=== PATIENT | male | born 1955 | race Asian ===

== ENCOUNTER 2021-04-06 10:22 | Outpatient (REF) | payer MEDICARE, OTHER, SELFPAY ==
[2021-04-06 10:27] VITALS: BP 144/87; PULSE 53; RESP 18; TEMP 36.3; O2SAT 96; BMI 25.5
--- NOTE | 2021-04-06 11:00 | P.BOP_ITS ---
Brief Operative Note Date of Service: 04/06/21 Pre-op diagnosis: Embolic cerebral infarction Post-op diagnosis: same Procedure: Implantable loop recorder placement Implants: After obtaining full informed consent patient was brought to the minor surgery suite in a fasting condition. Patient has then laid on the operating table in supine position. The precordial area was then prepped and draped in sterile fashion. Patient was then injected with 2% lidocaine with epinephrine intradermally in the subcutaneous space in the 4th intercostal space. [place] implantable loop recorder, serial number [id number] was then implanted using Seldinger technique after blunt dissection. Measured R-waves at 0.52 mV. The wound was then closed with Dermabond as well as Steri-Strips. Pressure dres sing was then applied. Surgeon: Jorge Gabriel MD Anesthesia: local Was an Grain [employer] Plants Supervisor used for this Procedure?: No Estimated blood loss (mL): 2 Pathology: none sent Condition: stable Disposition: same day
== END 2021-04-06 10:23 | disposition home or self-care (01) ==
LOC: HO.MS 10:22
PROVIDERS: Visit Provider Internal Medicine Cardiovascular Disease
PROC: (CPT 33285; principal; 2021-04-06 10:30)
DX: I63.40 Cerebral infarction due to embolism of unspecified cerebral artery (principal); I10 Essential (primary) hypertension
CPT/HCPCS: 33285; 93005; 99202; C1764

== ENCOUNTER → 2021-04-11 07:46 | Outpatient (BNVA) | payer MEDICARE, OTHER, SELFPAY | PROVIDERS: PCP Internal Medicine; Visit Provider Nurse Practitioner Family | DX: Z51.89 Encounter for other specified aftercare (principal); I63.40 Cerebral infarction due to embolism of unspecified cerebral artery | CPT/HCPCS: 99212 ==

== ENCOUNTER → 2021-04-18 14:56 | Outpatient (BNVA) | payer MEDICARE, OTHER, SELFPAY | PROVIDERS: PCP Internal Medicine; Referring Provider Internal Medicine; Visit Provider Nurse Practitioner Family | DX: Z45.09 Encounter for adjustment and management of other cardiac device (principal); I63.40 Cerebral infarction due to embolism of unspecified cerebral artery; Z95.818 Presence of other cardiac implants and grafts; Z51.89 Encounter for other specified aftercare | CPT/HCPCS: 99212 ==

== ENCOUNTER → 2021-04-25 13:58 | Outpatient (BNVA) | payer MEDICARE, OTHER, SELFPAY | PROVIDERS: PCP Internal Medicine; Referring Provider Internal Medicine; Visit Provider Nurse Practitioner Family | DX: I63.40 Cerebral infarction due to embolism of unspecified cerebral artery (principal); Z51.89 Encounter for other specified aftercare; Z95.818 Presence of other cardiac implants and grafts | CPT/HCPCS: 99212 ==

== ENCOUNTER → 2021-08-20 10:05 | Outpatient (BNVA) | payer MEDICARE, OTHER, SELFPAY | PROVIDERS: PCP Internal Medicine; Referring Provider Internal Medicine; Visit Provider Internal Medicine Cardiovascular Disease | DX: R07.9 Chest pain, unspecified (principal); I10 Essential (primary) hypertension; Z86.73 Personal history of transient ischemic attack (TIA), and cerebral infarction without residual deficits | CPT/HCPCS: 99212 ==

== ENCOUNTER → 2021-08-27 08:39 | Outpatient (REF) | payer MEDICARE, OTHER, SELFPAY ==
--- NOTE | ~2021-08-27 | NM_ITS ---
Exercise Myocardial perfusion study Indication: Chest pain with prior CAD to evaluate for myocardial ischemia Technique: The patient was brought in for an exercise perfusion study on 08/27/2021. Patient performed exercise as per Ayan protocol and was injected 30 mCi of sestamibi was given intravenously one target HR was achieved. Images were obtained using the SPECT gamma camera interlaced with the gating device. Images were obtained in supine position. Resting perfusion study was performed on 08/28/2021. Patient was administered 30 mCi of sestamibi intravenously at rest. Images were then obtained in supine position. Images obtained with and without CT attenuation. Total DLP 83 mGy-cm. Images were processed with the software and compared side to side in short axis, horizontal long axis and vertical long axis views. Findings: The stress perfusion study showed non attenuated images show mildly reduced uptake in the inferior wall of the LV myocardium. Remainder of the LV myocardium is normally perfused. Attenuation corrected images were also normal uptake radiotracer in all segments of minimally reduced in the apex. The gated study shows normal LV systolic function with calculated LVEF of 52%. LV cavity is normal in in size. The gated study shows normal systolic wall thickening and contraction of all segments. There is no transient ischemic dilation. Resting study shows no significant change in perfusion pattern on attenuation corrected images. Gating at rest reveals normal systolic wall motion with ejection fraction at 67%. The findings are consistent with normal myocardial perfusion. NM/NM cardiolite stress test Impression: 1. Normal myocardial perfusion 2. Gated LVEF is 62% 3. Transient ischemic dilatation not present Stress EKG is negative for ischemia
--- NOTE | 2021-08-27 08:44 | CA_ITS ---
Acquisition Time: 2021-08-27 09:05:17 Total Exercise Time: 00:09:00 Test Indications: Chest Pain Medications: AMLODIPINE ATORVASTATIN CLOPIDOGREL Protocol: BAYLEE Max HR: 133 BPM 87% of Pred: 152 BPM Max BP: 146/070 mmHG Max Work Load: 10.4 METS Exercise stress test with exercise 9 min of Baylee protocol, with mild sob, no chest discomfort, without arrythmia, with normotensive response to exercise, without EKGchanges meeting criteria for ischemia. Nuclear images pending. Test reviewed with Dr John. Referred By: Jorge Gabriel Overread By: JAY COOK
== END ==
LOC: HO.CARD 08:39
PROVIDERS: PCP Internal Medicine; Visit Provider Internal Medicine Cardiovascular Disease
DX: R07.9 Chest pain, unspecified (principal)
CPT/HCPCS: 78452; 93017; A9500

== ENCOUNTER → 2022-03-25 10:22 | Outpatient (BNVA) | payer MEDICARE, OTHER, SELFPAY | PROVIDERS: PCP Internal Medicine; Referring Provider Internal Medicine; Visit Provider Internal Medicine Cardiovascular Disease | DX: Z45.09 Encounter for adjustment and management of other cardiac device (principal); I63.40 Cerebral infarction due to embolism of unspecified cerebral artery; I10 Essential (primary) hypertension | CPT/HCPCS: 93005; 99212 ==

== ENCOUNTER → 2022-10-01 10:14 | Outpatient (BNVA) | payer MEDICARE, OTHER, SELFPAY | PROVIDERS: PCP Internal Medicine; Referring Provider Internal Medicine; Visit Provider Internal Medicine Cardiovascular Disease | DX: Z45.09 Encounter for adjustment and management of other cardiac device (principal); I10 Essential (primary) hypertension; R07.89 Other chest pain | CPT/HCPCS: 93005; 99212 ==

== ENCOUNTER → 2022-10-03 10:00 | Outpatient (REF) | payer MEDICARE, OTHER, SELFPAY ==
--- NOTE | ~2022-10-03 | NM_ITS ---
EXERCISE MYOCARDIAL PERFUSION STUDY INDICATION: Chest pain, PVCs TECHNIQUE: The patient was brought in for an exercise perfusion study on 10/03/2022. Patient performed exercise as per Ayan protocol and was injected 30 mCi of sestamibi once target heart rate was achieved. Images were obtained using the SPECT gamma camera interlaced with the gating device. Images were obtained in supine position. Resting perfusion study was performed on 10/07/2022. Patient was administered 30 mCi of sestamibi intravenously at rest. Images were then obtained in supine position. Images were processed with the software and compared side to side in short axis, horizontal long axis and vertical long axis views. Total DLP 81mGy-cm. FINDINGS: Raw images were reviewed. The stress perfusion study showed diminished tracer uptake in the basal part of inferior wall. There is improvement with CT at admission correction suggestive of diaphragmatic attenuation artifact. The gated study shows normal LV systolic function with calculated LVEF of 62%. LV cavity is normal in size. The gated study shows normal wall thickening and contraction of segments. Resting study shows diminished tracer uptake in the basal part of inferior wall and adjacent inferolateral wall. There is improvement with CT attenuation correction suggestive of diaphragmatic attenuation artifact. Gating at rest reveals normal wall motion with ejection fraction at 44%-seems underestimate. The findings are consistent with no reversible defects. Fixed basal inferior defect with some extension into inferolateral wall suggestive of diaphragmatic attenuation artifact. NM/NM cardiolite stress test IMPRESSION: 1. Myocardial perfusion imaging study shows no clear evidence of any ischemia or infarction. Likely normal perfusion. 2. Gated LVEF is 62% during stress and 44% during rest. Correlate with echocardiogram. 3. Transient ischemic dilatation not present. EKG component of the test reported separately.
--- NOTE | 2022-10-03 10:04 | CA_ITS ---
Acquisition Time: 2022-10-03 10:49:44 Total Exercise Time: 00:09:26 Test Indications: CP, PVC'S Medications: SEE H Protocol: BAYLEE Max HR: 144 BPM 95% of Pred: 151 BPM Max BP: 182/068 mmHG Max Work Load: 10.7 METS Exercise stress test using Baylee protocol, total of 9 min 26 sec. METS 10.70, TAPHR 95%. Patient tolerated well. Pt denies any SOB, short lasting CP. Frequent PVC's after exercise. No ischemia noted. Normotensive response to exercise. Nuclear images to follow. Test reviewed with Dr. Gabriel. Referred By: Jorge Gabriel Overread By: Opal Moreno NP
== END ==
LOC: HO.CARD 10:00
PROVIDERS: Visit Provider Internal Medicine Cardiovascular Disease
DX: R07.9 Chest pain, unspecified (principal)
CPT/HCPCS: 78452; 93017; A9500

== ENCOUNTER 2022-10-09 11:17 | Outpatient (REF) | payer MEDICARE, OTHER, SELFPAY ==
[2022-10-09 11:52] VITALS: BP 129/72; PULSE 35; RESP 16; TEMP 36.5; O2SAT 96; BMI 25.9
--- NOTE | 2022-10-09 12:04 | ECG_ITS ---
Test Reason : Bradycardia Blood Pressure : / mmHG Vent. Rate : 057 BPM Atrial Rate : 057 BPM P-R Int : 200 ms QRS Dur : 084 ms QT Int : 448 ms P-R-T Axes : 070 026 051 degrees QTc Int : 436 ms Sinus bradycardia with occasional Premature ventricular complexes Otherwise normal ECG No previous ECGs available Referred By: Jorge Gabriel Electronically Signed By:JORGE GABRIEL MD
[2022-10-09 13:03] VITALS: BP 166/85; PULSE 34; RESP 16; O2SAT 98
--- NOTE | 2022-10-09 15:10 | P.BOP_ITS ---
Brief Operative Note Date of Service: 10/09/22 Pre-op diagnosis: Implantable loop recorder in place Post-op diagnosis: same Procedure: Removal of implantable loop recorder Implants: After obtaining full informed consent patient brought to the minor surgery room. Patient was then laid in supine position on the operating table. The precordial area was then prepped and draped in a sterile fashion. Patient was then given 2% lidocaine with epinephrine intradermally and subcutaneously. Small incision was then made. The implantable loop recorder was then removed after retracting it with a Chloé. The wound was then closed with Steri-Strips and pressure bandage applied in a sterile fashion Surgeon: Jorge Gabriel MD Anesthesia: local Was an Commercial Trailer Truck Driver used for this Procedure?: No Estimated blood loss (mL): 1 Pathology: none sent Condition: stable Disposition: same day
== END 2022-10-09 11:18 | disposition home or self-care (01) ==
LOC: HO.MS 11:17
PROVIDERS: Visit Provider Internal Medicine Cardiovascular Disease
PROC: (CPT 33286; principal; 2022-10-09 12:20)
DX: Z95.818 Presence of other cardiac implants and grafts (principal); Z45.09 Encounter for adjustment and management of other cardiac device
CPT/HCPCS: 33286; 93005

== ENCOUNTER → 2022-10-17 09:51 | Outpatient (BNVA) | payer MEDICARE, OTHER, SELFPAY | PROVIDERS: Visit Provider Internal Medicine Cardiovascular Disease ==

== ENCOUNTER 2024-11-19 11:27 | Outpatient (AMB) | payer MEDICARE, OTHER, SELFPAY ==
[2024-11-19 11:39] VITALS: BP 114/70; PULSE 76; BMI 26.5
--- NOTE | 2024-11-19 11:39 | MHC.OFFVIS ---
Vital Signs 11/19/24 11:39 Height 5 ft 8 in Weight 174 lb 2.643 oz BMI 26.5 BP 114/70 Blood Pressure Location Lt brachial Position Sitting Pulse 76 Intake Visit Reasons: f/u per pcp Intake Note: Follow-up per pcp with ekg c/o chest pain across the chest and in the jaw from time to time Remote Sensing Surveyor Required: No Allergies No Known Allergies Allergy (Verified 04/11/21 08:05) Medication List - Last Reconciled 11/19/24 by Jorge Gabriel MD amlodipine 2.5 mg PO DAILY atorvastatin 40 mg PO DAILY bimatoprost 0.01% (Lumigan) 1 drp ophthalmic (eye) QPM brimonidine-timolol 0.2-0.5 % (Combigan) 1 drp ophthalmic (eye) BID clopidogrel 75 mg PO DAILY HPI Comments Details: Selvin was referred here for intermittent episodes of right-sided and left-sided chest pain as well as right jaw discomfort. There was no clear association although Mibi related to high blood pressure. He is not sure. He has never measured blood pressure during this episodes. Symptoms last for about 10 minutes and then subside. He says since there was a change in 1 of the generic medicine replacement with another formulation his blood pressure is not been well controlled. He denies any shortness of breath, orthopnea, PND. He said intermittently gets symptoms of fluttering in his chest palpitations. Although no prolonged irregular heartbeat or palpitation. FOR[facility]LY [facility] Medical History Status post placement of implantable loop recorder HTN (hypertension) Family History Mother Congestive heart failure (CHF) Father Stroke Social History Alcohol intake: current Patient Tobacco Use Status: Never used Tobacco Review of Systems Const Denies chills, Denies fatigue, Denies fever(s), Denies frequent falls, Denies weakness, Denies weight gain and Denies weight loss ENT Denies dizziness Card Denies chest pain, Denies leg edema, Denies lightheadedness, Denies palpitations, Denies dyspnea, Denies dyspnea on exertion, Denies orthopnea and Denies other (loss of consciousness) Resp Denies cough, Denies dyspnea and Denies dyspnea on exertion GI Denies hematochezia and Denies change in stool character Musc Denies abnormal gait, Denies muscle weakness, Denies numbness, Denies radiating pain into limb and Denies tingling Neuro Denies abnormal gait, Denies dizziness, Denies frequent falls, Denies numbness, Denies tingling and Denies weakness Endo Denies fatigue and Denies palpitations Physical Exam Vital Signs: Last Vital Signs Pulse 76 11/19/24 11:39 BP 114/70 11/19/24 11:39 BMI result Body Mass Index 26.5 Const General: cooperative, healthy appearing, comfortable, no acute distress and well groomed Nutritional Appearance: average body habitus Orientation/consciousness: patient oriented x3 Limitations: no limitations Neck Neck: Yes trachea midline, Yes supple and Yes no JVD Chest Other: ILR site with bandaid and steristrips intact Resp Effort & Inspection: normal respiratory effort Auscultation: clear to auscultation bilaterally Cardio Rate: regular rate Rhythm: abnormal rhythm with ectopic beats Heart sounds: S1 normal heart sound present, S2 normal heart sound present, no click, no gallops and no murmurs GI Auscultation: normal bowel sounds Neuro General: patient oriented x3 and no focal motor deficits Extrem General: Yes no clubbing, cyanosis or edema Office Procedures EKG Details: EKG shows normal sinus rhythm with occasional PVCs 57388-[id number], Complete Assessment & Plan Assessment & Plan (1) Atypical chest pain: Code(s): R07.89 - Other chest pain Category: Medical Plan: Patient with chest pain which is atypical in nature. Probably related to uncontrolled blood pressure. Although other causes such as myocardial ischemia needs to be ruled out. Will suggest a exercise treadmill stress test with echocardiogram to assess for myocardial ischemia. Also suggest an echocardiogram to evaluate for LV systolic and diastolic function to evaluate for hypertensive heart disease. These tests will be scheduled in near future. Further treatment based on the findings. (2) HTN (hypertension): Code(s): I10 - Essential (primary) hypertension Category: Medical Plan: Blood pressure which remains uncontrolled with possibly change in the medication formulation. At this point time would suggest to increase amlodipine to 2.5 mg b.i.d.. He does have 1 episode of orthostatic lightheadedness. Advised to pursue close follow-up blood pressure at home. Advised to maintain adequate hydration. Low-salt diet was discussed. Stress mitigation strategies were discussed. He is currently on high-intensity statin therapy given his prior CVA. Target goal LDL less than 70 mg/dL. Continue lifelong antiplatelet therapy. (3) PVCs (premature ventricular contractions): Code(s): I49.3 - Ventricular premature depolarization Category: Medical Plan: PVCs present today asymptomatic. At this point time will obtain a Holter monitor to assess for frequency that may direct treatment. Otherwise no treatment indicated. Stress mitigation strategies were discussed. Avoidance of stimulants was discussed. Will follow up in the clinic in 2 months time, sooner p.r.n.. Thank you for allowing me to partake in his care Medications: New amlodipine 2.5 mg PO BID 60 tabs 2RF Coding Level of Care Code Est Pt Level 4 (79154) Complex EM visit Add On G2211 Diagnoses Atypical chest pain R07.89 HTN (hypertension) I10 PVCs (premature ventricular contractions) I49.3 CPT Codes EKG - CPT: 45569-[id number], Complete ([id number])
--- OUTSIDE RECORDS SUMMARY | 2024-11-19 12:29 | XMS_ITS ---
Author Organization [facility] Address [address] [place] [address] Care Team Providers Care Handbag Stitcher Name Role Phone MARIA DOLORESMILIND Lewis Unavailable [phone] REASON FOR VISIT RPM - BP Nov 02 Encounters Encounter Location Date Provider Diagnosis [facility] [address] [facility] [place] [address] 11/05/2024 MILIND WHITTEN PLAN OF TREATMENT Next Appt Details Provider Name:MILIND WHITTEN, 08:45:00 AM, [address], [place], [address], Provider Name:MILIND WHITTEN, 11:00:00 AM, [address], [place], [address], Progress Notes * LICHA ACKERMAN ADOB: (69 yo M)Acc No.[id number]:11/05/2024 Patient:??LICHA ACKERMAN :1955?Age:69 Y?Sex:Jie hoover Address:[address] [place] [address] * true * Date:??
--- OUTSIDE RECORDS SUMMARY | 2024-11-19 12:29 | XMS_ITS | Clinical Summary ---
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 See instructions provided by the office 2 tablet 4 Active polyethylene glycol (Golytely) 236-22.74-6.74 -5.86 gram solution Take 4L by mouth once for one dose. May substitue any PEG. Starting at 6PM the night before your procedure drink 1 8oz glasses at your own pace until you complete half of the gallon. Finish 2nd half of the gallon 5 hours before your procedure. 4000 mL 4 Active clopidogreL (PLAVIX) 75 mg tablet Take 1 tablet (75 mg total) by mouth 1 (one) time each day. for 90 days Active atorvastatin (LIPITOR) 40 mg tablet Take 1 tablet (40 mg total) by mouth 1 (one) time each day. for 90 days Active amLODIPine (NORVASC) 5 mg tablet Take 1 tablet (5 mg total) by mouth 1 (one) time each day. for 90 days Active Lumigan 0.01 % ophthalmic drops Administer 1 drop into both eyes at bedtime. Active brimonidine (ALPHAGAN) 0.2 % ophthalmic solution Administer 1 drop into both eyes 2 (two) times a day. 4 Active fluticasone propionate (FLONASE) 50 mcg/actuation nasal spray Administer 1 spray into each nostril 1 (one) time each day. Active loratadine (CLARITIN) 10 mg tablet Take 1 tablet (10 mg total) by mouth 1 (one) time each day. Active Encounters Date Type Department Care Team Description 11/01/2024 10:06 AM EDT - 11/01/2024 11:59 PM EDT Hospital Encounter [facility] Ultrasound [address] [place] [id number] Essential (primary) hypertension Discharge Disposition: Home or Self Care 08/30/2024 Telephone Gastroenterology - [address] [id number] Hanny Parra [place] Results 08/24/2024 1:53 PM EST Anesthesia Event [facility] Endoscopy [address] [place] [phone] Adolfo De La Garza MD 08/24/2024 12:05 PM EST - 08/24/2024 11:59 PM EST Hospital Encounter [facility] Endoscopy [address] [place] [phone] Harjeet Cruz MD Johnson, Lorraine, CRNA Korobkov, Vitaliy, DO Hx of colonic polyps Discharge Disposition: Home or Self Care from Last 3 Months Surgical History Surgery Date Site/Laterality Comments HERNIA REPAIR PROCEDURE: REPAIR INGUINAL HERNIA; COMMENT: bilateral COLONOSCOPY 2013 PROCEDURE: AK COLONOSCOPY STOMA DX INCLUDING COLLJ SPEC SPX; COMMENT: Dulce. Normal COLONOSCOPY 2015 PROCEDURE: AK COLONOSCOPY STOMA DX INCLUDING COLLJ SPEC SPX; COMMENT: Christ. Diverticulosis APPENDECTOMY PROCEDURE: AK APPENDECTOMY Medical History Medical History Date Comments Serrated adenoma of colon 04/28/2014 DX:Ser rated adenoma of colon Hyperlipidemia Hypertension Stroke (cerebrum) (CMS/HCC V24, CMS/HCC V28) Family History Medical History Relation Name Comments Coronary artery disease Brother 1 pancreatic cancer Relation Name Status Comments Brother 1 heart disease Brother 2 pancreatic canc er Social History Tobacco Use Types Packs/Day Years Used Date Smoking Tobacco: Former Cigarettes Q uit: 08/11/1981 Smokeless Tobacco: Never Alcohol Use Standard Drinks/Week Comments Not Asked 0 (1 standard drink = 0.6 oz pur e alcohol) Interpersonal Safety Answer Date Record ed Physical Abuse 08/24/2024 Verbal Abuse 08/24/2024 Sex and Gender Information Value Date Recorded Sex Assigned at Male 08/26/2024 7:43 AM EST Legal Sex Male 9:08 PM EST Gender Identity Male 08/26/2024 7:43 AM EST Sexual Orientation Choose not to disclose 2024 7:43 AM EST Obstetrics History Last Filed Vital Signs Vital Sign Reading Time Taken Comments Blood Pressure 101/63 08/24/2024 2:55 PM EST Pulse 58 08/24/2024 2:55 PM EST Temperature 36.4 ??C (97.6 ??F) 08/24/2024 1:13 PM ES T Respiratory Rate 16 08/24/2024 2:55 PM EST Oxygen Saturation 97% 08/24/2024 2:55 PM EST Inhaled Oxygen Concentration - - Weight 77.6 kg (171 lb) 08/24/2024 1:13 PM EST Height 172.7 cm (5' 8 ) 08/24/2024 1:13 PM EST Body Mass Index 26 08/24/2024 1:13 PM EST Plan of Treatment Health Maintenance Due Date Last Done Comments DTaP,Tdap,and Td Vaccines (1 - Tdap) 1972 Pneumococcal Vaccine: 50+ Years (1 of 1 - PCV) 2003 Zoster Vaccines (2 of 2) 10/12/2019 08/17/2019 Abdominal Aortic Aneurysm (AAA) Screen 07/20/2022 Cholesterol Screening (Lipid Panel) 07/20/2022 Depression Screening 07/20/2022 Hepatitis C Screening 07/20/2022 Social Influencers of Health Screening 07/20/2022 Medicare Annual Wellness Visit 05/27/2023 05/27/2022 COVID-19 Vaccine ( season) 2024 11/03/2020, 10/06/2020 Hypertension/CHF/CAD Annual BMP Blood Test 10/20/2024 Influenza Vaccine (Season Ended) 2025 05/29/2023, 05/27/2022, 05/22/2021, Additional history exists Falls Risk Assessment 08/24/2025 08/24/2024 RSV Immunization Adult Patients (1 - 1-dose 75+ series) 2028 Colorectal Cancer Screening: Colonoscopy 08/24/2029 08/24/2024 HIB Vaccines Aged Out No longer eligi ble based on patient's age to complete this topic HPV Vaccines Aged Out No longer eligi ble based on patient's age to complete this topic Hepatitis A Vaccines Aged Out No long er eligible based on patient's age to complete this topic Hepatitis B Vaccines Aged Out No long er eligible based on patient's age to complete this topic IPV Vaccines Aged Out No longer eligi ble based on patient's age to complete this topic MMR Vaccines Aged Out No longer eligi ble based on patient's age to complete this topic Meningococcal ACWY Vaccine Aged Out N o longer eligible based on patient's age to complete this topic Meningococcal B Vaccine Aged Out No l onger eligible based on patient's age to complete this topic RSV Immunization Patients Under 20 months Aged Out No longer eligible based on patient's age to complete this topic Varicella Vaccines Aged Out No longer eligible based on patient's age to complete this topic Procedures Procedure Name Priority Date/Time Associated Diagnosis Comments US DUPLEX ABDOMEN/PELVIS/RETRO LIMITED Routine 11/01/2024 10:33 AM EDT Essential (primary) hypertension COLONOSCOPY Routine 08/24/2024 2:22 PM EST Hx of colonic polyps TISSUE EXAM Routine 08/24/2024 2:11 PM EST Hx of colonic polyps from Last 3 Months Results * US Duplex Abdomen/Pelvis/Retro Limited (11/01/2024 10:33 AM EDT) Anatomical Region Laterality Modality Body Ultrasound 11/10/2024 4:09 PM EDT Narrative 11/10/2024 4:13 PM EDT HISTORY: 69 year-old female with hypertension. ??Evaluate for renovascular cause of hypertension. PROCEDURE: Real-time sonography of the kidneys, aorta, and interlobar and main renal arteries and main renal veins was performed using grayscale, color flow and Doppler interrogation according to a renal artery Doppler protocol. COMPARISON: None. Right kidney measures 11.5 cm in length. Left kidney measures 10.2 cm. There is normal cortical thickness and echogenicity. No evidence of focal mass noted. ??Presumed peripelvic cysts left kidney Doppler evaluation demonstrates normal bilateral acceleration times and resistive indices. Renal artery velocities are within normal limits bilaterally. ??The proximal renal arteries were not visualized.. The abdominal aorta was normal in caliber with no evidence of aneurysm. ??No significant focal plaque was seen. ?? CONCLUSION: The proximal renal arteries were nonvisualized. ??Negative renal Doppler. -------- FINAL REPORT -------- Dictated By: Aakash Wagner Dictated Date: 11/10/2024 16:09 ET Assigned Physician: Aakash Wagner Reviewed and Electronically Signed By: Aakash Wagner Signed Date: 11/10/2024 16:13 ET Workstation ID: [id number] Transcribed By: Self Edit Transcribed Date: 11/10/2024 16:09 ET Procedure Note Aakash Wagner MD - 11/10/2024 HISTORY: 69 year-old female with hypertension. Evaluate for renovascularcause of hypertension. PROCEDURE: Real-time sonography of the kidneys, aorta, and interlobar and main renalarteries and main renal veins was performed using grayscale, color flowand Doppler interrogation according to a renal artery Doppler protocol. COMPARISON: None. Right kidney measures 11.5 cm in length. Left kidney measures 10.2 cm.There is normal cortical thickness and echogenicity. No evidence of focalmass noted. Presumed peripelvic cysts left kidney Doppler evaluation demonstrates normal bilateral acceleration times andresistive indices. Renal artery velocities are within normal limitsbilaterally. The proximal renal arteries were not visualized.. The abdominal aorta was normal in caliber with no evidence of aneurysm.No significant focal plaque was seen. CONCLUSION: The proximal renal arteries were nonvisualized. Negative renal Doppler. -------- FINAL REPORT -------- Dictated By: Aakash Wagner Dictated Date: 11/10/2024 16:09 ET Assigned Physician: Aakash Wagner Reviewed and Electronically Signed By: Aakash Wagner Signed Date: 11/10/2024 16:13 ET Workstation ID: [id number] Transcribed By: Self Edit Transcribed Date: 11/10/2024 16:09 ET us Madalyn TORRES IMKeon US PROCEDURES Final Result * COLONOSCOPY Anesthesia - MAC; [facility] ENDOSCOPY (08/24/2024 2:22 PM EST) Anatomical Region Laterality Modality Other 08/24/2024 1:59 PM EST Impressions 08/24/2024 2:24 PM EST - One 6 mm polyp at the splenic flexure, removed with ? a cold snare. Resected and retrieved. ? - The examination was otherwise normal on direct and ? retroflexion views. Recommendation: ?- Await pathology results. ? - Repeat colonoscopy in 5 years for surveillance. Narrative 08/24/2024 2:24 PM EST [facility] GI Patient Name: Selvin Luevano Procedure Date: 08/24/2024 1:59 PM Date of : 1955 Age: 68 Room: ROOM 14 Gender: Male Note Status: Finalized Attending MD: Harjeet Cruz MD, Procedure Date No Time: 08/24/2024 Procedure: ? Colonoscopy Indications: ? High risk colon cancer surveillance: Personal history ? of colonic polyps Providers: ? Harjeet Cruz MD Referring MD: ?Reagan Cardona MD Medicines: ? Propofol per Anesthesia Complications: ? No immediate complications. Estimated Blood Loss: ? Estimated blood loss: none. Procedure: ? After I obtained informed consent, the scope was ? passed under direct vision. Throughout the procedure, ? the patient's blood pressure, pulse, and oxygen ? saturations were monitored continuously.The Olympus ? Pediatric Colonoscope was introduced through the anus ? and advanced to the cecum, identified by appendiceal ? orifice and ileocecal valve. The colonoscopy was ? performed without difficulty. The patient tolerated ? the procedure well. The quality of the bowel ? preparation was good. Findings: ?The perianal and digital rectal examinations were ? normal. ? A 6 mm polyp was found in the splenic flexure. The ? polyp was sessile. The polyp was removed with a cold ? snare. Resection and retrieval were complete. ? The exam was otherwise without abnormality on direct ? and retroflexion views. Harjeet Cruz MD 08/24/2024 2:24:28 PM This report has been signed electronically.Harjeet Cruz MD Number of Addenda: 0 Note Initiated On: 08/24/2024 1:59 PM Scope In: Scope Out: ? Endoscopy Department at [facility] - [address] [place] [address], ? [place] [address] Procedure Note Harjeet Cruz MD - 08/24/2024 [facility] GI Patient Name: Selvin Luevano Procedure Date: 08/24/2024 1:59 PM Date of : 1955 Age: 68 Room: ROOM 14 Gender: Male Note Status: Finalized Attending MD: Harjeet Cruz MD, Procedure Date No Time: 08/24/2024 Procedure: Colonoscopy Indications: High risk colon cancer surveillance: Personalhistory of colonic polyps Providers: Harjeet Cruz MD Referring MD: Reagan Cardona MD Medicines: Propofol per Anesthesia Complications: No immediate complications. Estimated Blood Loss: Estimated blood loss: none. Procedure: After I obtained informed consent, the scope was passed under direct vision. Throughout theprocedure, the patient's blood pressure, pulse, and oxygen saturations were monitored continuously.The Olympus Pediatric Colonoscope was introduced through theanus and advanced to the cecum, identified byappendiceal orifice and ileocecal valve. The colonoscopy was performed without difficulty. The patient tolerated the procedure well. The quality of the bowel preparation was good. Findings: The perianal and digital rectal examinations were normal. A 6 mm polyp was found in the splenic flexure. The polyp was sessile. The polyp was removed with acold snare. Resection and retrieval were complete. The exam was otherwise without abnormality ondirect and retroflexion views. Harjeet Cruz MD 08/24/2024 2:24:28 PM This report has been signed electronically.Harjeet Cruz MD Number of Addenda: 0 Note Initiated On: 08/24/2024 1:59 PM Scope In: Scope Out: Endoscopy Department at [address] [phone] IMPRESSION: - One 6 mm polyp at the splenic flexure, removed with a cold snare. Resected and retrieved. - The examination was otherwise normal on directand retroflexion views. Recommendation: - Await pathology results. - Repeat colonoscopy in 5 years for surveillance. us Reagan Cardona MD GI~PROCEDURE ORDERABLES Final Re sult * Tissue exam (08/24/2024 2:11 PM EST) Final Diagnosis Splenic flexure, polypX1: Inflammatory polyp. 4:17 PM EST [facility] Comment Biopsy shows eroded inflammatory polyp with mixed acute and chronic inflammation including eosinophils in the lamina propria. GMS stain is performed to evaluate for infectious organisms and is interpreted as negative, supporting the above diagnosis. Control stains appropriately. 4:17 PM EST [facility] Gross Description A. Large intestine, Splenic flexure, polypX1: Labeled splenic flex polyp x 1 . Received in formalin are two soft, reyes-pink to red tissues, approximately measuring 0.2 cm and 0.3 cm in greatest diameters, which are wrapped in paper and submitted in toto in one cassette, two pieces, multiple levels. dvb/DG 4:17 PM EST [facility] Disclaimer NOTE: The immunohistochemical tests and in situ hybridization tests were developed and their performance characteristics were determined by [facility]. They have not been cleared or approved by the U.S. Food and Drug Administration. The FDA has determined that such clearance or approval is not necessary. These tests are used for clinical purposes. They should not be regarded as investigational or for research. This laboratory is certified under the Clinical Laboratory Improvement Amendments of 1988 (CLIA) as qualified to perform high complexity clinical laboratory testing. (controls appropriate) Unless otherwise specified, all tissue is 10% NB formalin fixed and paraffin embedded. 4:17 PM EST [facility] Tissue Structure of left colic flexure / Unknown 08/24/2024 2:11 PM EST 08/24/2024 2:49 PM EST us Harjeet Cruz MD LAB PATHOLOGY ORDERABLES Fi nal Result [facility] [address] [place] [address], [place] [phone] from Last 3 Months Insurance MEDICARE [employer] Advance Directives Documents on File Type Date Recorded Patient Manager Baby Expl anation Health Care Decision (hx) 06/10/2014 AD ARANGO DIRECTIVE Health Care Decision (hx) 06/10/2014 AD ARANGO DIRECTIVE Health Care Decision (hx) 06/10/2014 AD ARANGO DIRECTIVE Health Care Decision (hx) 06/10/2014 AD ARANGO DIRECTIVE Health Care Decision (hx) 06/10/2014 AD ARANGO DIRECTIVE Health Care Decision (hx) 06/10/2014 AD ARANGO DIRECTIVE Care Teams Staple Side Laster Relationship Specialty Start Date End Date Sravani Carvalho MD [address] [place] [address] [place] [address] PCP - General 03/23/24
--- OUTSIDE RECORDS SUMMARY | 2024-11-19 12:29 | XMS_ITS ---
Author Organization [facility] Address [address] [place] [address] Care Team Providers Care Desktop Support Manager Name Role Phone MILIND WHITTEN Unavailable [phone] REASON FOR VISIT 3 week f/u MEDICATIONS Medication SIG (Take, Route, Frequency, Duration) Notes Start Date End Date Status amLODIPine Besylate 5 MG 1 tablet Orally Once a day for 90 days Active tiZANidine HCl 4 MG 1 tablet at bedtime as needed Orally Once a day for 15 days 10/26/2024 Active Clopidogrel Bisulfate 75 MG 1 tablet Orally Once a day for 90 days Active Combigan 0.2-0.5 % 1 drop into affected eye Ophthalmic Twice a day Active Lumigan 0.01 % 1 drop into affected eye in the evening Ophthalmic Once a day Active Vitamin B12 100 MCG as directed Orally Active Atorvastatin Calcium 40 MG 1 tablet Orally Once a day for 90 days Active Flonase Allergy Relief 50 MCG/ACT 1 spray in each nostril Nasally Once a day as needed Active Loratadine 10 MG 1 tablet Orally Once a day as needed Active SOCIAL HISTORY Tobacco Use: Social History Observation Description Date Details (start date - stop date) Former Smoker NA - NA Sex Assigned At : Social History Observation Description Sex Assigned At Unknown Tobacco Use/Smoking Question Answer Notes Are you a former smoker VITAL SIGNS Blood pressure systolic 122 mm Hg 10/27/19 25 Blood pressure diastolic 72 mm Hg 025 Heart Rate 97 /min 10/26/2024 Height 67 in 10/26/2024 Weight 170 lbs 10/26/2024 BMI 26.62 kg/m2 10/26/2024 Oximetry 99 % 10/26/2024 Encounters Encounter Location Date Provider Diagnosis [facility] [address] [place] [address] 10/26/2024 MILIND WHITTEN Uncontrolled hyperte nsion I10 ; Hyperlipidemia, unspecified E78.5 ; Cerebrovascular accident (CVA) due to embolism of other cerebral artery I63.49 ; First degree AV block I44.0 and Seasonal allergies J30.2 ASSESSMENTS Encounter Date Diagnosis Assessment Notes Treatment Notes Treatment Clinical Notes Section Notes 10/26/2024 Uncontrolled hypertension (ICD-10 - I10) Licha is a pleasant 69-year-old male with a complex medical history of CVA x 2, essential hypertension, glaucoma, seasonal allergies who presents to the office today for a follow-up. #Foot pain: Resolved #Neck pain: At this time we will be prescribing a few muscle relaxers to be utilized as needed, patient is to alternate ice and heat on the area. Differential at this time includes trapezium strain, sternocleidomastoid strain, if the pain does not resolve consider chiropractor or physical therapy. #Blood pressure concerns: Renal artery ultrasound ordered today for suspected renal artery stenosis due to the fluctuation of blood pressures. Continue taking amlodipine besilate 5 mg tablets consider switching patient from amlodipine to losartan. #Cardiology referral: Cardiology referral placed for further evaluation of uncontrolled hypertension and AV block. Patient has appointment scheduled for December #Hyperlipidemia: Continue atorvastatin calcium 40 mg tablets, previous cardiology note recommended an LDL level of under 70. At this time patient's recent LDL is 42 from lab values conducted on 09/29/2024. This is reassuring for cholesterol goal. #Personal concerns: At this time patient declines any assistance or references for [facility] services, patient reassured to call the office if he does change his mind. #Glaucoma: Continue Lumigan, Combigan eyedrops. #Seasonal allergies: Continue loratadine 10 mg and Flonase daily. #History of CVA: Continue clopidogrel 75 mg tablets daily. All questions have been answered to patient's satisfaction. Patient verbalized understanding of diagnosis and treatments explained. Advised to call sooner prior to next visit it any questions/concerns arise. Case discussed with Aba VEGAS who reviewed the assessment and plan. Chart, medications, labs, vital signs reviewed. Dictation was accomplished with the use of [employer] voice recognition software, which is prone to medical misidentifications and grammatical errors. This are unintentional and the practitioner does try to identify and correct these, but some could still be present. Please do not hesitate to contact practitioner for clarification. 10/26/2024 Hyperlipidemia, unspecified (ICD-10 - E78.5) Licha is a pleasant 69-year-old male with a complex medical history of CVA x 2, essential hypertension, glaucoma, seasonal allergies who presents to the office today for a follow-up. #Foot pain: Resolved #Neck pain: At this time we will be prescribing a few muscle relaxers to be utilized as needed, patient is to alternate ice and heat on the area. Differential at this time includes trapezium strain, sternocleidomastoid strain, if the pain does not resolve consider chiropractor or physical therapy. #Blood pressure concerns: Renal artery ultrasound ordered today for suspected renal artery stenosis due to the fluctuation of blood pressures. Continue taking amlodipine besilate 5 mg tablets consider switching patient from amlodipine to losartan. #Cardiology referral: Cardiology referral placed for further evaluation of uncontrolled hypertension and AV block. Patient has appointment scheduled for December #Hyperlipidemia: Continue atorvastatin calcium 40 mg tablets, previous cardiology note recommended an LDL level of under 70. At this time patient's recent LDL is 42 from lab values conducted on 09/29/2024. This is reassuring for cholesterol goal. #Personal concerns: At this time patient declines any assistance or references for [facility], patient reassured to call the office if he does change his mind. #Glaucoma: Continue Lumigan, Combigan eyedrops. #Seasonal allergies: Continue loratadine 10 mg and Flonase daily. #History of CVA: Continue clopidogrel 75 mg tablets daily. All questions have been answered to patient's satisfaction. Patient verbalized understanding of diagnosis and treatments explained. Advised to call sooner prior to next visit it any questions/concerns arise. Case discussed with Aba VEGAS who reviewed the assessment and plan. Chart, medications, labs, vital signs reviewed. Dictation was accomplished with the use of [employer] voice recognition software, which is prone to medical misidentifications and grammatical errors. This are unintentional and the practitioner does try to identify and correct these, but some could still be present. Please do not hesitate to contact practitioner for clarification. 10/26/2024 Cerebrovascular accident (CVA) due to embolism of other cerebral artery (ICD-10 - I63.49) Licha is a pleasant 69-year-old male with a complex medical history of CVA x 2, essential hypertension, glaucoma, seasonal allergies who presents to the office today for a follow-up. #Foot pain: Resolved #Neck pain: At this time we will be prescribing a few muscle relaxers to be utilized as needed, patient is to alternate ice and heat on the area. Differential at this time includes trapezium strain, sternocleidomastoid strain, if the pain does not resolve consider chiropractor or physical therapy. #Blood pressure concerns: Renal artery ultrasound ordered today for suspected renal artery stenosis due to the fluctuation of blood pressures. Continue taking amlodipine besilate 5 mg tablets consider switching patient from amlodipine to losartan. #Cardiology referral: Cardiology referral placed for further evaluation of uncontrolled hypertension and AV block. Patient has appointment scheduled for December #Hyperlipidemia: Continue atorvastatin calcium 40 mg tablets, previous cardiology note recommended an LDL level of under 70. At this time patient's recent LDL is 42 from lab values conducted on 09/29/2024. This is reassuring for cholesterol goal. #Personal concerns: At this time patient declines any assistance or references for [facility], patient reassured to call the office if he does change his mind. #Glaucoma: Continue Lumigan, Combigan eyedrops. #Seasonal allergies: Continue loratadine 10 mg and Flonase daily. #History of CVA: Continue clopidogrel 75 mg tablets daily. All questions have been answered to patient's satisfaction. Patient verbalized understanding of diagnosis and treatments explained. Advised to call sooner prior to next visit it any questions/concerns arise. Case discussed with Aba VEGAS who reviewed the assessment and plan. Chart, medications, labs, vital signs reviewed. Dictation was accomplished with the use of [employer] voice recognition software, which is prone to medical misidentifications and grammatical errors. This are unintentional and the practitioner does try to identify and correct these, but some could still be present. Please do not hesitate to contact practitioner for clarification. 10/26/2024 First degree AV block (ICD-10 - I44.0) Licha is a pleasant 69-year-old male with a complex medical history of CVA x 2, essential hypertension, glaucoma, seasonal allergies who presents to the office today for a follow-up. #Foot pain: Resolved #Neck pain: At this time we will be prescribing a few muscle relaxers to be utilized as needed, patient is to alternate ice and heat on the area. Differential at this time includes trapezium strain, sternocleidomastoid strain, if the pain does not resolve consider chiropractor or physical therapy. #Blood pressure concerns: Renal artery ultrasound ordered today for suspected renal artery stenosis due to the fluctuation of blood pressures. Continue taking amlodipine besilate 5 mg tablets consider switching patient from amlodipine to losartan. #Cardiology referral: Cardiology referral placed for further evaluation of uncontrolled hypertension and AV block. Patient has appointment scheduled for December #Hyperlipidemia: Continue atorvastatin calcium 40 mg tablets, previous cardiology note recommended an LDL level of under 70. At this time patient's recent LDL is 42 from lab values conducted on 09/29/2024. This is reassuring for cholesterol goal. #Personal concerns: At this time patient declines any assistance or references for [facility], patient reassured to call the office if he does change his mind. #Glaucoma: Continue Lumigan, Combigan eyedrops. #Seasonal allergies: Continue loratadine 10 mg and Flonase daily. #History of CVA: Continue clopidogrel 75 mg tablets daily. All questions have been answered to patient's satisfaction. Patient verbalized understanding of diagnosis and treatments explained. Advised to call sooner prior to next visit it any questions/concerns arise. Case discussed with Aba VEGAS who reviewed the assessment and plan. Chart, medications, labs, vital signs reviewed. Dictation was accomplished with the use of [employer] voice recognition software, which is prone to medical misidentifications and grammatical errors. This are unintentional and the practitioner does try to identify and correct these, but some could still be present. Please do not hesitate to contact practitioner for clarification. 10/26/2024 Seasonal allergies (ICD-10 - J30.2) Licha is a pleasant 69-year-old male with a complex medical history of CVA x 2, essential hypertension, glaucoma, seasonal allergies who presents to the office today for a follow-up. #Foot pain: Resolved #Neck pain: At this time we will be prescribing a few muscle relaxers to be utilized as needed, patient is to alternate ice and heat on the area. Differential at this time includes trapezium strain, sternocleidomastoid strain, if the pain does not resolve consider chiropractor or physical therapy. #Blood pressure concerns: Renal artery ultrasound ordered today for suspected renal artery stenosis due to the fluctuation of blood pressures. Continue taking amlodipine besilate 5 mg tablets consider switching patient from amlodipine to losartan. #Cardiology referral: Cardiology referral placed for further evaluation of uncontrolled hypertension and AV block. Patient has appointment scheduled for December #Hyperlipidemia: Continue atorvastatin calcium 40 mg tablets, previous cardiology note recommended an LDL level of under 70. At this time patient's recent LDL is 42 from lab values conducted on 09/29/2024. This is reassuring for cholesterol goal. #Personal concerns: At this time patient declines any assistance or references for [facility], patient reassured to call the office if he does change his mind. #Glaucoma: Continue Lumigan, Combigan eyedrops. #Seasonal allergies: Continue loratadine 10 mg and Flonase daily. #History of CVA: Continue clopidogrel 75 mg tablets daily. All questions have been answered to patient's satisfaction. Patient verbalized understanding of diagnosis and treatments explained. Advised to call sooner prior to next visit it any questions/concerns arise. Case discussed with Aba VEGAS who reviewed the assessment and plan. Chart, medications, labs, vital signs reviewed. Dictation was accomplished with the use of [employer] voice recognition software, which is prone to medical misidentifications and grammatical errors. This are unintentional and the practitioner does try to identify and correct these, but some could still be present. Please do not hesitate to contact practitioner for clarification. PLAN OF TREATMENT Medication Medication Name Sig Start Date Stop Date Notes tiZANidine HCl 4 MG 1 tablet at bedtime as needed Orally Once a day for 15 days 10/26/2024 Next Appt Details Follow Up: 3 Weeks, Reason: neck pain Provider Name:MILIND WHITTEN, 08:45:00 AM, [address], [place], [address], Provider Name:MILIND WHITTEN, 11:00:00 AM, [address], [place], [address], Progress Notes * LICHA ACKERMAN ADOB: [birth year] (69 yo M)Acc No.[id number]:10/26/2024 Progress Notes Patient:??LICHA ACKERMAN Provider:??MILIND WHITTEN PA-C :1955?Age:69 Y?Sex:Jie hoover Date:10/26/2024 [id number] Subjective: * Chief Complaints: * ?1. 3 week f/u. * HPI: ?Constitutional:? Licha is a pleasant 69-year-old male with a past medical history of CVA, essential hypertension, glaucoma and seasonal allergies who presents to the office today for a follow-up. The patient was previously seen in the office on 10/05 where a renal artery ultrasound was placed due to uncontrolled hypertension. At this time patient's blood pressure in office is 122/72, states that in the morning his blood pressure was 148 systolically, unsure of bottom number at this time. States that he has been taking his amlodipine at night. Patient states that [facility] radiology contacted him for an abdominal ultrasound, however he is concerned due to renal artery ultrasound being ordered. ?#Neck pain: Patient states that last week he was swinging golf clubs, felt a stiff neck sensation, and now states he has been feeling a pulling sensation in his back. States that he trialed 1 muscle relaxer that slightly provided relief. Additionally states that yesterday he additionally swung golf clubs and felt that same sensation. ?#Cardiology: Appointment is scheduled for December ?#Ophthalmology: Appointment is scheduled for December. * ROS:?Constitutional: Patient denies any excessive fatigue with exercise, no weight loss, no fever and no night sweats ???Eyes: No eye discharge, no itching, no redness. Advised the significance of regular eye exams to screen for glaucoma and other eye problems ???Ear nose throat: No sore throat, postnasal drip, runny nose, Sneezing ???Cardiovascular: No chest pain, no shortness of breath, no dyspnea on exertion, no PND, no orthopnea, no irregular pulse ???Respiratory: No chronic cough, no hemoptysis, no sputum, no wheezing ???GI, no diarrhea, no constipation no blood in the stools, no pain associated with eating, no indigestion ???Genitourinary: No painful urination no hesitancy no blood in the urine ???Musculoskeletal, +Neck pain,no limitations to walking and running, no joint deformity, no joint stiffness, no chronic back pain, no noise with joint movement ???Integumentary, no new skin rash. No new changes in skin moles ???Neurological: No history of seizures, memory loss, No language dysfunction, No inability to concentrate, no localized weakness, no sensation loss, no confusion ???Psychiatric: No depression, no suicidal thoughts, no anxiety ???Endocrine: No polyuria no polyphagia or polydipsia, no heat intolerance no cold intolerance ???Hematological: No easy bruising or Lymph node swelling. 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 * Surgical History:??hernia , appendectomy , colonoscopy 2013 due 04/29 . * Family History:??Father: dec eased.??Mother: .??2 brother(s) , 4 sister(s) . 1 son(s) , 2 daughter(s) . .?? dad hx heart disease mom hx heart disease. * Social History:?Tobacco Use:??Tobacco Use/Smoking??Are you a??former smoker.?? * Medications:??Taking Vitamin B12 100 MCG Tablet as directed Orally , Taking Loratadine 10 MG Tablet 1 tablet Orally Once a day , Notes to Pharmacist: as needed, Taking Flonase Allergy Relief 50 MCG/ACT Suspension 1 spray in each nostril Nasally Once a day , Notes to Pharmacist: as needed, Taking Atorvastatin Calcium 40 MG Tablet 1 tablet Orally Once a day , Taking Lumigan 0.01 % Solution 1 drop into affected eye in the evening Ophthalmic Once a day , Taking Combigan 0.2-0.5 % Solution 1 drop into affected eye Ophthalmic Twice a day , Taking Clopidogrel Bisulfate 75 MG Tablet 1 tablet Orally Once a day , Taking amLODIPine Besylate 5 MG Tablet 1 tablet Orally Once a day Objective: * Vitals:??HR:97/min, BP:122/7 2mm Hg, Wt:170lbs, BMI:26.62Index, Ht: 67 in, Oxygen sat %:99%. * Physical Examination:?General: Age appropriate, well-appearing male in no acute distress, speaking in full sentences without visible respiratory distress. Well groomed, well developed. Alert, interactive. ?Skin: Warm, dry without new lesions ?HEENT: Normocephalic/atraumatic. ?Cardiac: Regular rate and rhythm without murmurs, rubs, or gallops. 2+ radial pulses bilaterally. ?Abdomen: Non tender to palpation, normoactive bowel sounds appreciated ?Lungs: Equal chest rise and fall bilaterally. ?Neuro: CN II-XII grossly intact. Steady gait with non-assisted ambulation observed. ?Psych: Stable mood and affect. Assessment: * Assessment: 1.??Uncontrolled hypertensio n - I10 (Primary)??2.??Hyperlipidemia, unspecified - E78.5??3.??Cerebrovascular accident (CVA) due to embolism of other cerebral artery - I63.49??4.??First degree AV block - I44.0??5.??Seasonal allergies - J30.2?? Licha is a pleasant 69-year -old male with a complex medical history of CVA x 2, essential hypertension, glaucoma, seasonal allergies who presents to the office today for a follow-up. #Foot pain: Resolved #Neck pain: At this time we will be prescribing a few muscle relaxers to be utilized as needed, patient is to alternate ice and heat on the area. Differential at this time includes trapezium strain, sternocleidomastoid strain, if the pain does not resolve consider chiropractor or physical therapy. #Blood pressure concerns: Renal artery ultrasound ordered today for suspected renal artery stenosis due to the fluctuation of blood pressures. Continue taking amlodipine besilate 5 mg tablets consider switching patient from amlodipine to losartan. #Cardiology referral: Cardiology referral placed for further evaluation of uncontrolled hypertension and AV block. Patient has appointment scheduled for December #Hyperlipidemia: Continue atorvastatin calcium 40 mg tablets, previous cardiology note recommended an LDL level of under 70. At this time patient's recent LDL is 42 from lab values conducted on 09/29/2024. This is reassuring for cholesterol goal. #Personal concerns: At this time patient declines any assistance or references for [facility], patient reassured to call the office if he does change his mind. #Glaucoma: Continue Lumigan, Combigan eyedrops. #Seasonal allergies: Continue loratadine 10 mg and Flonase daily. #History of CVA: Continue clopidogrel 75 mg tablets daily. All questions have been answered to patient's satisfaction. Patient verbalized understanding of diagnosis and treatments explained. Advised to call sooner prior to next visit it any questions/concerns arise. Case discussed with Aba VEGAS who reviewed the assessment and plan. Chart, medications, labs, vital signs reviewed. Dictation was accomplished with the use of [employer] voice recognition software, which is prone to medical misidentifications and grammatical errors. This are unintentional and the practitioner does try to identify and correct these, but some could still be present. Please do not hesitate to contact practitioner for clarification. Plan: * Treatment: * Follow Up:??3 Weeks (Reason: neck pain) * Images: Billing Information: * Visit Code:?? 19436 Office Visit, Est Pt., Level 4. Modifiers: 25, SA * Procedure Codes:?? Care Plan Details* * Sign off status: Completed true * Provider:??MILIND WHITTEN PA-C Date:??10/26 History and Physical Notes * HPI (History of Present Illness) Category Sub-Category Detail Notes Category Not es Constitutional Licha is a pleasant 69-year-old male with a past medical history of CVA, essential hypertension, glaucoma and seasonal allergies who presents to the office today for a follow-up. The patient was previously seen in the office on 10/05 where a renal artery ultrasound was placed due to uncontrolled hypertension. At this time patient's blood pressure in office is 122/72, states that in the morning his blood pressure was 148 systolically, unsure of bottom number at this time. States that he has been taking his amlodipine at night. Patient states that [facility] radiology contacted him for an abdominal ultrasound, however he is concerned due to renal artery ultrasound being ordered. #Neck pain: Patient states that last week he was swinging golf clubs, felt a stiff neck sensation, and now states he has been feeling a pulling sensation in his back. States that he trialed 1 muscle relaxer that slightly provided relief. Additionally states that yesterday he additionally swung golf clubs and felt that same sensation. #Cardiology: Appointment is scheduled for December #Ophthalmology: Appointment is scheduled for December Physical Examination Category Sub-Category Detail Notes Section Note s General: Age appropriate, well-appearing male in no acute distress, speaking in full sentences without visible respiratory distress. Well groomed, well developed. Alert, interactive. Skin: Warm, dry without new lesions HEENT: Normocephalic/atraumatic. Cardiac: Regular rate and rhythm without murmurs, rubs, or gallops. 2+ radial pulses bilaterally. Abdomen: Non tender to palpation, normoactive bowel sounds appreciated Lungs: Equal chest rise and fall bilaterally. Neuro: CN II-XII grossly intact. Steady gait with non-assisted ambulation observed. Psych: Stable mood and affect.
--- OUTSIDE RECORDS SUMMARY | 2024-11-19 12:29 | XMS_ITS ---
Author Organization [facility] Address [address] [place] [address] Care Team Providers Care Mixer And Scaler Name Role Phone MILIND WHITTEN Unavailable [phone] ALLERGIES No Known Allergies REASON FOR VISIT Patient is here for in office follow up, Patient has concerns of his back spasming again after doing very little yard work on Friday. He would like to see a chiropractor. MEDICATIONS Medication SIG (Take, Route, Frequency, Duration) Notes Start Date End Date Status Combigan 0.2-0.5 % 1 drop into affected eye Ophthalmic Twice a day Active Lumigan 0.01 % 1 drop into affected eye in the evening Ophthalmic Once a day Active amLODIPine Besylate 5 MG 1 tablet Orally Once a day for 90 days Active Clopidogrel Bisulfate 75 MG 1 tablet Orally Once a day for 90 days Active tiZANidine HCl 4 MG 1 tablet at bedtime as needed Orally Once a day for 15 days Active Loratadine 10 MG 1 tablet Orally Once a day as needed Active Atorvastatin Calcium 40 MG 1 tablet Orally Once a day for 90 days Active Flonase Allergy Relief 50 MCG/ACT 1 spray in each nostril Nasally Once a day as needed Active Vitamin B12 100 MCG as directed Orally Active SOCIAL HISTORY Tobacco Use: Social History Observation Description Date Details (start date - stop date) Former Smoker NA - NA Sex Assigned At : Social History Observation Description Sex Assigned At Unknown Tobacco Use/Smoking Question Answer Notes Are you a former smoker VITAL SIGNS Blood pressure systolic 118 mm Hg 11/16/19 25 Blood pressure diastolic 80 mm Hg 025 Heart Rate 55 /min 11/15/2024 Height 67 in 11/15/2024 Weight 174.7 lbs 11/15/2024 BMI 27.36 kg/m2 11/15/2024 Oximetry 98 % 11/15/2024 Encounters Encounter Location Date Provider Diagnosis [facility] [address] [place] [address] 11/15/2024 MILIND WHITTEN Uncontrolled hyperte nsion I10 ; Hyperlipidemia, unspecified E78.5 ; 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 #Urinary retention: Obtaining PSA, patient would like to hold off on medications until we have PSA obtained, urology referral placed for meantime #Foot pain: Resolved #Neck pain: Continue utilizing muscle relaxers as needed, chiropractor referral will be placed as soon as patient calls the office with which chiropractor he would like to see. Differential at this time includes trapezium strain, sternocleidomastoid strain, if the pain does not resolve consider chiropractor or physical therapy. #Blood pressure concerns: Renal artery ultrasound negative. Continue taking amlodipine besilate 5 mg tablets consider switching patient from amlodipine to losartan. #Cardiology referral: Radiology referral placed for further evaluation of AV block, uncontrolled hypertension with intermittent elevated systolic values. Patient does have an appointment scheduled for November 19. #Hyperlipidemia: Continue atorvastatin calcium 40 mg tablets, previous cardiology note recommended an LDL level of under 70. At this time patient's recent LDL is 42 from lab values conducted on 09/29/2024. This is reassuring for cholesterol goal. #Personal concerns: At this time patient declines any assistance or references for [facility], patient reassured to call the office if [...] Dictation was accomplished with the use of LayerGloss voice recognition software, which is prone to medical misidentifications and grammatical errors. This are unintentional and the practitioner does try to identify and correct these, but some could still be present. Please do not hesitate to contact practitioner for clarification. 11/15/2024 Hyperlipidemia, unspecified (ICD-10 - E78.5) Licha is a pleasant 69-year-old male with a complex medical history of CVA x 2, essential hypertension, glaucoma, seasonal allergies who presents to the office today for a follow-up. #Urinary retention: Obtaining PSA, patient would like to hold off on medications until we have PSA obtained, urology referral placed for meantime #Foot pain: Resolved #Neck pain: Continue utilizing muscle relaxers as needed, chiropractor referral will be placed as soon as patient calls the office with which chiropractor he would like to see. Differential at this time includes trapezium strain, sternocleidomastoid strain, if the pain does not resolve consider chiropractor or physical therapy. #Blood pressure concerns: Renal artery ultrasound negative. Continue taking amlodipine besilate 5 mg tablets consider switching patient from amlodipine to losartan. #Cardiology referral: Radiology referral placed for further evaluation of AV block, uncontrolled hypertension with intermittent elevated systolic values. Patient does have an appointment scheduled for November 19. #Hyperlipidemia: Continue atorvastatin calcium 40 mg tablets, previous cardiology note recommended an LDL level of under 70. At this time patient's recent LDL is 42 from lab values conducted on 09/29/2024. This is reassuring for cholesterol goal. #Personal concerns: At this time patient declines any assistance or references for [facility], patient reassured to call the office if [...] Dictation was accomplished with the use of Layer[employer] voice recognition software, which is prone to medical misidentifications and grammatical errors. This are unintentional and the practitioner does try to identify and correct these, but some could still be present. Please do not hesitate to contact practitioner for clarification. 11/15/2024 Cerebrovascular accident (CVA) due to embolism of other cerebral artery (ICD-10 - I63.49) Licha is a pleasant 69-year-old male with a complex medical history of CVA x 2, essential hypertension, glaucoma, seasonal allergies who presents to the office today for a follow-up. #Urinary retention: Obtaining PSA, patient would like to hold off on medications until we have PSA obtained, urology referral placed for meantime #Foot pain: Resolved #Neck pain: Continue utilizing muscle relaxers as needed, chiropractor referral will be placed as soon as patient calls the office with which chiropractor he would like to see. Differential at this time includes trapezium strain, sternocleidomastoid strain, if the pain does not resolve consider chiropractor or physical therapy. #Blood pressure concerns: Renal artery ultrasound negative. Continue taking amlodipine besilate 5 mg tablets consider switching patient from amlodipine to losartan. #Cardiology referral: Radiology referral placed for further evaluation of AV block, uncontrolled hypertension with intermittent elevated systolic values. Patient does have an appointment scheduled for November 19. #Hyperlipidemia: Continue atorvastatin calcium 40 mg tablets, previous cardiology note recommended an LDL level of under 70. At this time patient's recent LDL is 42 from lab values conducted on 09/29/2024. This is reassuring for cholesterol goal. #Personal concerns: At this time patient declines any assistance or references for [facility], patient reassured to call the office if [...] Dictation was accomplished with the use of Layer[employer] voice recognition software, which is prone to medical misidentifications and grammatical errors. This are unintentional and the practitioner does try to identify and correct these, but some could still be present. Please do not hesitate to contact practitioner for clarification. 11/15/2024 First degree AV block (ICD-10 - I44.0) Licha is a pleasant 69-year-old male with a complex medical history of CVA x 2, essential hypertension, glaucoma, seasonal allergies who presents to the office today for a follow-up. #Urinary retention: Obtaining PSA, patient would like to hold off on medications until we have PSA obtained, urology referral placed for meantime #Foot pain: Resolved #Neck pain: Continue utilizing muscle relaxers as needed, chiropractor referral will be placed as soon as patient calls the office with which chiropractor he would like to see. Differential at this time includes trapezium strain, sternocleidomastoid strain, if the pain does not resolve consider chiropractor or physical therapy. #Blood pressure concerns: Renal artery ultrasound negative. Continue taking amlodipine besilate 5 mg tablets consider switching patient from amlodipine to losartan. #Cardiology referral: Radiology referral placed for further evaluation of AV block, uncontrolled hypertension with intermittent elevated systolic values. Patient does have an appointment scheduled for November 19. #Hyperlipidemia: Continue atorvastatin calcium 40 mg tablets, previous cardiology note recommended an LDL level of under 70. At this time patient's recent LDL is 42 from lab values conducted on 09/29/2024. This is reassuring for cholesterol goal. #Personal concerns: At this time patient declines any assistance or references for [facility], patient reassured to call the office if [...] Dictation was accomplished with the use of Layer[employer] voice recognition software, which is prone to medical misidentifications and grammatical errors. This are unintentional and the practitioner does try to identify and correct these, but some could still be present. Please do not hesitate to contact practitioner for clarification. 11/15/2024 Seasonal allergies (ICD-10 - J30.2) Licha is a pleasant 69-year-old male with a complex medical history of CVA x 2, essential hypertension, glaucoma, seasonal allergies who presents to the office today for a follow-up. #Urinary retention: Obtaining PSA, patient would like to hold off on medications until we have PSA obtained, urology referral placed for meantime #Foot pain: Resolved #Neck pain: Continue utilizing muscle relaxers as needed, chiropractor referral will be placed as soon as patient calls the office with which chiropractor he would like to see. Differential at this time includes trapezium strain, sternocleidomastoid strain, if the pain does not resolve consider chiropractor or physical therapy. #Blood pressure concerns: Renal artery ultrasound negative. Continue taking amlodipine besilate 5 mg tablets consider switching patient from amlodipine to losartan. #Cardiology referral: Radiology referral placed for further evaluation of AV block, uncontrolled hypertension with intermittent elevated systolic values. Patient does have an appointment scheduled for November 19. #Hyperlipidemia: Continue atorvastatin calcium 40 mg tablets, previous cardiology note recommended an LDL level of under 70. At this time patient's recent LDL is 42 from lab values conducted on 09/29/2024. This is reassuring for cholesterol goal. #Personal concerns: At this time patient declines any assistance or references for [facility], patient reassured to call the office if [...] Dictation was accomplished with the use of Layer[employer] voice recognition software, which is prone to medical misidentifications and grammatical errors. This are unintentional and the practitioner does try to identify and correct these, but some could still be present. Please do not hesitate to contact practitioner for clarification. 11/15/2024 Encounter for screening for malignant neoplasm of prostate (ICD-10 - Z12.5) Licha is a pleasant 69-year-old male with a complex medical history of CVA x 2, essential hypertension, glaucoma, seasonal allergies who presents to the office today for a follow-up. #Urinary retention: Obtaining PSA, patient would like to hold off on medications until we have PSA obtained, urology referral placed for meantime #Foot pain: Resolved #Neck pain: Continue utilizing muscle relaxers as needed, chiropractor referral will be placed as soon as patient calls the office with which chiropractor he would like to see. Differential at this time includes trapezium strain, sternocleidomastoid strain, if the pain does not resolve consider chiropractor or physical therapy. #Blood pressure concerns: Renal artery ultrasound negative. Continue taking amlodipine besilate 5 mg tablets consider switching patient from amlodipine to losartan. #Cardiology referral: Radiology referral placed for further evaluation of AV block, uncontrolled hypertension with intermittent elevated systolic values. Patient does have an appointment scheduled for November 19. #Hyperlipidemia: Continue atorvastatin calcium 40 mg tablets, previous cardiology note recommended an LDL level of under 70. At this time patient's recent LDL is 42 from lab values conducted on 09/29/2024. This is reassuring for cholesterol goal. #Personal concerns: At this time patient declines any assistance or references for [facility], patient reassured to call the office if [...] Dictation was accomplished with the use of LayerGl[employer] voice recognition software, which is prone to [...] Orally Once a day for 15 days Pending Test Test Name Order Date PSA (FREE AND TOTAL) 11/15/2024 Next Appt Details Provider Name:MILIND WHITTEN, 08:45:00 AM, [address], [place], [address], Provider Name:MILIND WHITTEN, 11:00:00 AM, [address], [place], [address], Progress Notes * LICHA ACKERMAN ADOB: (69 yo M)Acc No.[id number]:11/15/2024 Progress Notes Patient:??LICHA ACKERMAN A Provider:??MILIND WHITTEN PA-C :1955?Age:69 Y?Sex:Jie le Date:11/15/2024 Address: [address], [facility], [facility] Subjective: * Chief Complaints: * ?1. Patient is here for in office follow up, Patient has concerns of his back spasming again after doing very little yard work on Friday. He would like to see a chiropractor.. * HPI: ?Constitutional:? 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 Patient had a ultrasound completed of his renal arteries on 11/01/2024, to rule out renal artery stenosis due to uncontrolled hypertension. Overall impression the proximal renal arteries were nonvisualized, negative renal Doppler. ?Patient states that he would like a referral to a chiropractor at this time due to his unresolved neck pain, states that he saw a chiropractor in the past and had good luck. Denies any numbness or tingling in his neck at this time, states that he will call the office with which particular chiropractor he would like to see. ?#Suspected BPH: States he has a hard time emptying his bladder, however declines any burning with urination. We have not obtained a PSA on patient in quite some time, ordering repeat PSA and then consider starting Flomax. ?#Lower back pain: At this time patient states that he does have bilateral lower back pain, questioning whether or not this is related to his prostate, reassuring that patient just had a kidney ultrasound that was negative. Patient does not have any CVA tenderness at this time, and is intermittent. ?#Cardiology: Seeing cardiology at the end of the week. * ROS:?Constitutional: Patient denies any excessive fatigue [...] pain associated with eating, no indigestion ???Genitourinary: + Difficulty emptying bladder, no painful urination no hesitancy no blood in the urine ???Musculoskeletal,+Neck pain, no limitations to walking and running, no joint [...] , colonoscopy 2013 due 04/29 . * Hospitalization/Major Diagno stic Procedure:??Denies Past Hospitalization. * Family History:??Father: dec eased.??Mother: .??2 brother(s) [...] tablet Orally Once a day , Taking tiZANidine HCl 4 MG Tablet 1 tablet at bedtime as needed Orally Once a day , Medication List reviewed and reconciled with the patient * Allergies:??N.K.D.A. Objective: * Vitals:??HR:55/min, BP:118/8 0mm Hg, Wt:174.7lbs, BMI:27.36Index, Ht: 67 in, Oxygen sat %:98%. * Physical Examination:?General: Age appropriate, well-appearing male [...] intact. Steady gait with non-assisted ambulation observed. ?MSK:+ Positive Spurling test bilaterally, denies C-spine tenderness upon palpation ?Psych: Stable mood and affect. 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 Licha is a pleasant 69-year -old male with a complex medical history of CVA x 2, essential hypertension, glaucoma, seasonal allergies who presents to the office today for a follow-up. #Urinary retention: Obtaining PSA, patient would like to hold off on medications until we have PSA obtained, urology referral placed for meantime #Foot pain: Resolved #Neck pain: Continue utilizing muscle relaxers as needed, chiropractor referral will be placed as soon as patient calls the office with which chiropractor he would like to see. Differential at this time includes trapezium strain, sternocleidomastoid strain, if the pain does not resolve consider chiropractor or physical therapy. #Blood pressure concerns: Renal artery ultrasound negative. Continue taking amlodipine besilate 5 mg tablets consider switching patient from amlodipine to losartan. #Cardiology referral: Radiology referral placed for further evaluation of AV block, uncontrolled hypertension with intermittent elevated systolic values. Patient does have an appointment scheduled for November 19. #Hyperlipidemia: Continue atorvastatin calcium 40 mg tablets, previous cardiology note recommended an LDL level of under 70. At this time patient's recent LDL is 42 from lab values conducted on 09/29/2024. This is reassuring for cholesterol goal. #Personal concerns: At this time patient declines any assistance or references for [facility], patient reassured to call the office if [...] Dictation was accomplished with the use of Layer[employer] voice recognition software, which is prone to medical misidentifications and grammatical errors. This are unintentional and the practitioner does try to identify and correct these, but some could still be present. Please do not hesitate to contact practitioner for clarification. Plan: * Treatment: 2.??Encounter for screening for malignant neoplasm of prostate?LAB: PSA (FREE AND TOTAL) * Images: Billing Information: * Visit Code:?? 43001 Office Visit, Est Pt., Level 4. Modifiers: SA * Procedure Codes:?? 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 Patient had a ultrasound completed of his renal arteries on 11/01/2024, to rule out renal artery stenosis due to uncontrolled hypertension. Overall impression the proximal renal arteries were nonvisualized, negative renal Doppler. Patient states that he would like a referral to a chiropractor at this time due to his unresolved neck pain, states that he saw a chiropractor in the past and had good luck. Denies any numbness or tingling in his neck at this time, states that he will call the office with which particular chiropractor he would like to see. #Suspected BPH: States he has a hard time emptying his bladder, however declines any burning with urination. We have not obtained a PSA on patient in quite some time, ordering repeat PSA and then consider starting Flomax. #Lower back pain: At this time patient states that he does have bilateral lower back pain, questioning whether or not this is related to his prostate, reassuring that patient just had a kidney ultrasound that was negative. Patient does not have any CVA tenderness at this time, and is intermittent. #Cardiology: Seeing cardiology at the end of the week. Physical Examination Category Sub-Category Detail Notes Section [...] intact. Steady gait with non-assisted ambulation observed. MSK:+ Positive Spurling test bilaterally, denies C-spine tenderness upon palpation Psych: Stable mood and affect.
--- OUTSIDE RECORDS SUMMARY | 2024-11-19 12:29 | XMS_ITS | Patient Health Record ---
Author Organization [facility] Address [address] [place] [address] Care Team Providers Care Cat Cracker Operator Name Role Phone MILIND WHITTEN Unavailable [phone] ROCIO CARVALHO Unavailable [phone] CANDIS JAVIER Unavailable [phone] FRANKLYN CARVALHO Unavailable [phone] LESLEY COLLAZO Unavailable [phone] Christy Zhao Unavailable [phone] BETHDOMINIC REINA Unavailable [phone] BIRKS, JEANETTE Unavailable [phone] ALLERGIES No Known Allergies RESULTS Component Value Reference Range Notes EKG (Not yet reviewed by pro vider) Interpretation: Performing Lab: Notes/Report: ECGDiastolicBP 82 ECGHr 53 ECGPRInterval 254 ECGPWaveAxis 39 ECGQRSDuration 88 ECGQrsWaveAxis 5 ECGQTcInterval 420 ECGQTInterval 432 ECGSystolicBP 134 ECGTWaveAxis 35 RR_DiastolicBP 0 RR_MaxRRInterval 0 RR_MeanHR 0 RR_MeanRRInterval 0 RR_MinRRInterval 0 RR_NumBeats 0 RR_NumNormalBeats 0 RR_SystolicBP 0 Uric Acid-[id number] Reviewed date:07/01/2024 09:00:02 AM Interpretation: Performing Lab:[facility], [address] [facility], [place], Phone - [phone], Director - Daniel Notes/Report: Uric Acid 4.4 3.8-8.4 mg/dL Therapeutic ta rget for gout patients: <6.0 Hemoglobin M6h-[id number] Reviewed date:07/01/2024 09:00:02 AM Interpretation: Performing Lab:[address], Phone - [phone], [facility] Notes/Report: Hemoglobin A1c 5.7 4.8-5.6 % . Prediabetes: 5.7 - 6.4 Diabetes: >6.4 Glycemic control for adults with diabetes: <7.0 Vitamin [id number] Reviewed date:07/01/2024 09:00:02 AM Interpretation: Performing Lab:[address], Phone - [phone], [facility] Daniel Notes/Report: Vitamin B12 284 470-2019 pg/mL Folate (Folic Acid), Serum-0 68485 Reviewed date:07/01/2024 09:00:02 AM Interpretation: Performing Lab:[address], Phone - [phone], [facility] Notes/Report: Folate (Folic Acid), Serum 8.0 >3.0 ng/mL A serum folate concentration of less than 3.1 ng/mL is considered to represent clinical deficiency. Urinalysis, Routine-[id number] Reviewed date:10/01/2024 08:56:09 AM Interpretation: Performing Lab:[address], Phone - [phone], [facility] Notes/Report: Specific [place] 1.015 1.005-1.030 pH 6.5 5.0-7.5 Urine-Color Yellow Yellow Appearance Clear Clear WBC Esterase Negative Negative Protein Negative Negative/Trace Glucose Negative Negative Ketones Negative Negative Occult Blood Negative Negative Bilirubin Negative Negative Urobilinogen,Semi-Qn 0.2 0.2-1.0 mg/dL Nitrite, Urine Negative Negative Microscopic Examination Microscopic not indicated and not performed. CBC With Differential/Platel et-[id number] Reviewed date:10/01/2024 08:56:19 AM Interpretation: Performing Lab:[address], Phone - [phone], [facility] Daniel Notes/Report: WBC 7.3 3.4-10.8 x10E3/uL RBC 5.08 4.14-5.80 x10E6/uL Hemoglobin 15.1 13.0-17.7 g/dL Hematocrit 44.8 37.5-51.0 % MCV 88 79-97 fL MCH 29.7 26.6-33.0 pg MCHC 33.7 31.5-35.7 g/dL RDW 12.2 11.6-15.4 % Platelets 179 150-450 x10E3/uL Neutrophils 69 Not Estab. % Lymphs 19 Not Estab. % Monocytes 8 Not Estab. % Eos 3 Not Estab. % Basos 1 Not Estab. % Immature Cells Neutrophils (Absolute) 5.1 1.4-7.0 x10E3/uL Lymphs (Absolute) 1.4 0.7-3.1 x10E3/uL Monocytes(Absolute) 0.6 0.1-0.9 x10E3/uL Eos (Absolute) 0.2 0.0-0.4 x10E3/uL Baso (Absolute) 0.1 0.0-0.2 x10E3/uL Immature Granulocytes 0 Not Estab. % Immature Grans (Abs) 0.0 0.0-0.1 x10E3/uL NRBC Hematology Comments: CBC With Differential/Platel et-[id number] Reviewed date:07/01/2024 09:00:02 AM Interpretation: Performing Lab:[facility], [address] [place] [address], [place], Phone - [phone], Director - Daniel Notes/Report: WBC 6.6 3.4-10.8 x10E3/uL Effective July 12, 2024 profile [id number] WBC will be made non-orderable as a stand-alone order code. RBC 4.84 4.14-5.80 x10E6/uL Hemoglobin 14.2 13.0-17.7 g/dL Hematocrit 43.9 37.5-51.0 % MCV 91 79-97 fL MCH 29.3 26.6-33.0 pg MCHC 32.3 31.5-35.7 g/dL RDW 12.5 11.6-15.4 % Platelets 187 150-450 x10E3/uL Neutrophils 68 Not Estab. % Lymphs 18 Not Estab. % Monocytes 8 Not Estab. % Eos 5 Not Estab. % Basos 1 Not Estab. % Immature Cells Neutrophils (Absolute) 4.6 1.4-7.0 x10E3/uL Lymphs (Absolute) 1.2 0.7-3.1 x10E3/uL Monocytes(Absolute) 0.5 0.1-0.9 x10E3/uL Eos (Absolute) 0.3 0.0-0.4 x10E3/uL Baso (Absolute) 0.1 0.0-0.2 x10E3/uL Immature Granulocytes 0 Not Estab. % Immature Grans (Abs) 0.0 0.0-0.1 x10E3/uL [facility] Hematology Comments: Lipid Panel-[id number] Reviewed date:10/01/2024 08:56:09 AM Interpretation: Performing Lab:[facility] [place], [place] [address]oun[address] [facility], [place], Phone - [phone], Director - Daniel Notes/Report: Cholesterol, Total 102 100-199 mg/dL Triglycerides 89 0-149 mg/dL HDL Cholesterol 43 >39 mg/dL VLDL Cholesterol Fish 17 5-40 mg/dL LDL Chol Calc ([facility]) 42 0-99 mg/dL LDL Calc Comment: Comp. Metabolic Panel (14)- Reviewed date:10/15/2024 10:55:41 AM Interpretation: Performing Lab:[facility] [place], [place], [place], Phone - [phone], Director - Daniel Notes/Report: Glucose 96 70-99 mg/dL BUN 18 8-27 mg/dL Creatinine 1.02 0.76-1.27 mg/dL eGFR 79 >59 mL/min/1.73 BUN/Creatinine Ratio 18 10-24 Sodium 143 134-144 mmol/L Potassium 4.1 3.5-5.2 mmol/L Chloride 104 96-106 mmol/L Carbon Dioxide, Total 24 20-29 mmol/L Calcium 9.6 8.6-10.2 mg/dL Protein, Total 6.1 6.0-8.5 g/dL Albumin 4.3 3.8-4.8 g/dL Globulin, Total 1.8 1.5-4.5 g/dL Bilirubin, Total 0.5 0.0-1.2 mg/dL Alkaline Phosphatase 132 44-121 IU/L AST (SGOT) 18 0-40 IU/L ALT (SGPT) 23 0-44 IU/L Comp. Metabolic Panel (14)-3 Reviewed date:07/01/2024 09:00:02 AM Interpretation: Performing Lab:[facility], [address] [facility], [place], Phone - [phone], Director - Daniel Notes/Report: Glucose 95 70-99 mg/dL BUN 15 8-27 mg/dL Creatinine 0.87 0.76-1.27 mg/dL eGFR 93 >59 mL/min/1.73 BUN/Creatinine Ratio 17 10-24 Sodium 142 134-144 mmol/L Potassium 4.6 3.5-5.2 mmol/L Chloride 105 96-106 mmol/L Carbon Dioxide, Total 23 20-29 mmol/L Calcium 9.4 8.6-10.2 mg/dL Protein, Total 6.2 6.0-8.5 g/dL Albumin 4.2 3.9-4.9 g/dL Globulin, Total 2.0 1.5-4.5 g/dL Bilirubin, Total 0.4 0.0-1.2 mg/dL Alkaline Phosphatase 140 44-121 IU/L AST (SGOT) 18 0-40 IU/L ALT (SGPT) 25 0-44 IU/L PSA Total+% Free-[id number] Reviewed date:11/16/2024 08:56:37 AM Interpretation: Performing Lab:[facility]vera, [address] [facility], [place], Phone - [phone], Director - Daniel Notes/Report: Prostate Specific Ag 1.6 0.0-4.0 ng/mL Missy ECLIA methodology. . According to the [place] [employer], Serum PSA should decrease and remain at undetectable levels after radical prostatectomy. The AUA defines biochemical recurrence as an initial PSA value 0.2 ng/mL or greater followed by a subsequent confirmatory PSA value 0.2 ng/mL or greater. Values obtained with different assay methods or kits cannot be used interchangeably. Results cannot be interpreted as absolute evidence of the presence or absence of malignant disease. PSA, Free 0.47 N/A ng/mL Missy ECLIA methodology. % Free PSA 29.4 The table below lists the probability of prostate cancer for men with non-suspicious NANCY results and total PSA between 4 and 10 ng/mL, by patient age (Patriciaona et al, MEHUL 1998, 279:1542). % Free PSA 50-64 yr 65-75 yr 0.00-10.00% 56% 55% 10.01-15.00% 24% 35% 15.01-20.00% 17% 23% 20.01-25.00% 10% 20% >25.00% 5% 9% Please note: Kelsey et al did not make specific recommendations regarding the use of percent free PSA for any other population of men. TISSUE EXAM Reviewed date:2024 08:24:02 AM Interpretation: Performing Lab: Notes/Report: Final Diagnosis Splenic flexure, polypX1: Inflammatory polyp. Gross Description A. Large intestine, Splenic flexure, polypX1: Labeled splenic flex polyp x 1 . Received in formalin are two soft, reyes-pink to red tissues, approximately measuring 0.2 cm and 0.3 cm in greatest diameters, which are wrapped in paper and submitted in toto in one cassette, two pieces, multiple levels. dvb/DG Disclaimer NOTE: The immunohistochemical tests and in situ hybridization tests were developed and their performance characteristics were determined by [facility]. They have not [...] 10% NB formalin fixed and paraffin embedded. US DUPLEX ABDOMEN/PELVIS/RET RO LIMITED Reviewed date:11/11/2024 08:05:29 AM Interpretation: Performing Lab: Notes/Report: Note See Note [facility], a member of [employer] Patient Name: LICHA LUEVANO Date of : 1955 Reason for Exam: [id number] Exam Date: 11/01/2024 [id number] EST Report Status: Final Ordering Provider: MILIND WHITTEN PCP: ROCIO CARVALHO HISTORY: 69 year-old female with hypertension. Evaluate for renovascular cause of hypertension. PROCEDURE: Real-time sonography of the kidneys, aorta, and interlobar and main renal arteries and main renal veins was performed using grayscale, color flow and Doppler interrogation according to a renal artery Doppler protocol. COMPARISON: None. Right kidney measure s 11.5 cm in length. Left kidney measures 10.2 cm. There is normal cortical thickness and echogenicity. No evidence of focal mass noted. Presumed peripelvic cysts left kidney Doppler evaluation demonstrates normal bilateral acceleration times and resistive indices. Renal artery velocities are within normal limits bilaterally. The proximal renal arteries were not visualized.. The abdominal aorta was normal in caliber with no evidence of aneurysm. No significant focal plaque was seen. CONCLUSION: The proximal renal a rteries were nonvisualized. Negative renal Doppler. -------- FINAL REPOR T -------- Dictated By: Aakash Wagner Dictated Date: 11/10 16:09 ET Assigned Physician: Aakash Wagner Reviewed and Electro nically Signed By: Aakash Wagner Signed Date: 025 16:13 ET Workstation ID: [id number] Transcribed By: Self Edit Transcribed Date: 11/10/2024 16:09 ET REASON FOR REFERRAL Reason AT- [facility] Diagnosis 1 Strain of left forea rm, initial encounter (S56.912A) Diagnosis 2 Trapezius strain, ri ght, initial encounter (S46.811A) Referral Organization [facility] 119 Referring Provider First Name CANDIS Referring Provider Last Name YAYA Referring Provider Speciality Internal M edicine Referred Provider Specialty Physical The rapist General Notes CHAN BOB 01/12 09:04:30 AM > faxed referral with office notes to [facility] & gave pt phone # to call for appt Referral Priority Routine Reason Colonoscopy with Tri nity GI Diagnosis 1 Colon cancer screeni (Z12.11) Referral Organization [facility] Referring Provider First Name ROCIO Referring Provider Last Name JOSE ALBERTO Referring Provider Speciality Internal M edicine Referred Provider Specialty Gastroentero logy General Notes Starla BRITT , [address] , [place], [place], P [phone], F [phone] Clinical Notes Shante Morales 2023 08:21:13 AM >Office notes and labs faxed to Starla BRITT. Paper copy mailed to pt for record and FU. Called pt and LVM stating this has been sent.Andrew Kammy 03/24/2024 02:31:43 PM >fax from [facility] confirmed appt with Dr. Cardona 08/24/24 13:00 Referral Priority Routine Diagnosis 1 Low back pain, unspe cified back pain laterality, unspecified chronicity, unspecified whether sciatica present (M54.50) Referral Organization [facility] Referring Provider First Name ROCIO Referring Provider Last Name CARVALHO [facility] Referred Provider Specialty Physical The rapist General Notes Heike Linares 2023 01:14:48 PM > filled out form and faxed to at , Clinical Notes pt can make own appt Referral Priority Routine Reason evaluate & treat Diagnosis 1 1st degree AV block (I44.0) Referral Organization [facility] Referring Provider First Name ROCIO Referring Provider Last Name JOSE ALBERTO Referring Provider [facility] Internal edicine Referred Provider Specialty Cardiology General Notes Farrah Avalos 10/05 11:54:50 AM > faxed over to Dr. Jorge Gabriel , p.0 , Fax. [phone] Clinical Notes Heike Linares 2024 04:27:22 PM > refaxed Referral Priority Routine Reason evaluate Diagnosis 1 Urine troubles (R39. 89) Referral Organization [facility] Referring Provider First Name MILIND Referring Provider Last Name MARIA DOLORES Referring Provider [facility] edicine Referred Provider Specialty Urology General Notes Heike Linares 2024 09:41:17 AM > referral sent to [facility]rology, [phone] , [phone] Referral Priority Routine MEDICATIONS Medication SIG (Take, Route, Frequency, Duration) Notes Start Date End Date Status Loratadine 10 MG 1 tablet Orally Once a day as needed Active Atorvastatin Calcium 40 MG 1 tablet Orally Once a day for 90 days Active Flonase Allergy Relief 50 MCG/ACT 1 spray in each nostril Nasally Once a day as needed Active Combigan 0.2-0.5 % 1 drop into [...] Once a day for 15 days Active Vitamin B12 100 MCG as directed Orally Active IMMUNIZATIONS Vaccine Route Administration Date Status Comme nts influenza IM Intramuscular 05/26/2019 Administered influenza IM Intramuscular 05/22/2021 Administered influenza IM Intramuscular 05/27/2022 Administered Influenza, high dose seasonal IM Intramuscular 05/29/2023 Administered SOCIAL HISTORY Tobacco Use: Social History Observation Description Date Details (start date - stop date) Former Smoker NA - NA Sex Assigned At : Social History Observation Description Sex Assigned At Unknown Tobacco Use/Smoking Question Answer Notes Are you a former smoker PROBLEMS Problem Type ICD Code Onset Dates Problem Status W/U Status Risk SNOMED Code Notes Problem Lactose intolerance, unspecified (E73.9) Active confirmed Intolerance to lactose (finding) (650665563) Problem Hyperlipidemia, unspecified (E78.5) Active confirmed Hyperlipidemia (84790083) Problem Essential (primary) hypertension (I10) Active confirmed 57820839 Problem Encounter for screening for malignant neoplasm of prostate (Z12.5) Active confirmed 126694178 Problem Essential (primary) hypertension (I10) Active confirmed Essential hypertension (61927691) Problem Back pain, unspecified back location, unspecified back pain laterality, unspecified chronicity (M54.9) Active confirmed Backache (755234339) Problem Hearing loss, unspecified hearing loss type, unspecified laterality (H91.90) Active confirmed Hearing loss (21434230) Problem Seasonal allergies (J30.2) Active confirmed 735811740 Problem Vitamin D deficiency (E55.9) Active confirmed Vitamin D deficiency (60048474) Problem Right hip pain (M25.551) Active confirmed 517044152390674 Problem Sciatic nerve pain, unspecified laterality (M54.30) Active confirmed Sciatica (42064615) Problem Uncontrolled hypertension (I10) Active confirmed Hypertens ion (74824021) Problem Hip pain (M25.559) Active confirmed Hip pain (62309770) Problem Bilateral hearing loss, unspecified hearing loss type (H91.93) Active confirmed 77006563 Problem Combined hyperlipidemia (E78.2) Active confirmed Mixed hyperlipidemia (457256523) Problem Anemia due to vitamin B12 deficiency, 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) Active confirmed Vitamin B>12< deficiency anaemia (00915071) Problem 1st degree AV block (I44.0) Active confirmed First degree atrioventricular block (289266952) Problem Cerebrovascular accident (CVA) due to 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) Active confirmed Cerebral inf arction due to embolism of cerebral arteries (662488789) Problem Low back pain, unspecified back pain laterality, unspecified chronicity, unspecified whether sciatica present (M54.50) Active confirmed 269185352 Problem Chronic glaucoma (H40.1190) Active confirmed 86289039 Problem Strain of left forearm, initial encounter (S56.912A) Active confirmed 056594495 Problem Trapezius strain, right, initial encounter (S46.811A) Active confirmed 41341220516210666 VITAL SIGNS Heart Rate 55 /min 11/15/2024 Blood pressure diastolic 80 mm Hg 11/15/2024 Oximetry 98 % 11/15/2024 Height 67 in 11/15/2024 Blood pressure systolic 118 mm Hg 11/15/2024 Weight 174.7 lbs 11/15/2024 BMI 27.36 kg/m2 11/15/2024 Encounters Encounter Location Date Provider Diagnosis [facility] [address] [place] [address] [facility] [address] [place] [address] 10/08[facility]2024 [facility] [address] [facility] [address] [place] [address] 12/11/2023 Christy Svrcek Muscle spasm of back M62.830 ; Left arm pain M79.602 and Essential (primary) hypertension I[address] [facility] [address] [facility] [address] [place] [address] 12/15/2023 CANDIS BORHOT Strain of left forea rm, initial encounter S56.912A [facility] [address] [facility] [address] [place], [place] 01/13/2024 CANDIS BORHOT Strain of left forea rm, initial encounter S56.912A and Trapezius strain, right, initial encounter S46.811A [facility] [address] [place] [address] 03/31/2024 LESLEY ZAY Muscle spasm of back M62.830 ; Left arm pain M79.602 and Essential (primary) hypertension I10 [facility] [address] [place] [address] 05/31/2024 ROCIO CARVALHO Annual physical exam Z00.00 ; Hyperlipidemia, unspecified hyperlipidemia type E78.5 and Essential (primary) hypertension I10 [facility] [address] [place] [address] 06/28/2024 DOMINIC BETH Toe pain, right M79. 674 [facility] [address] [place] [address] 07/29/2024 DOMINIC BETH Hyperlipidemia, unspecified E78.5 ; Toe pain, right M79.674 and Essential (primary) hypertension I[address] [facility] [address] [facility] [address] [facility] [address] [place] [address] 08/13/2024 JEANETTE CALDERA Screening for cardiovascular condition Z13.6 ; Colon cancer screening Z12.11 ; Essential (primary) hypertension I10 ; Cerebrovascular accident (CVA) due to embolism of other cerebral artery I63.49 ; Hyperlipidemia, unspecified E78.5 ; Chronic glaucoma H40.1190 ; Seasonal allergies J30.2 and First degree AV block I44.0 [facility] [address] [place] [address] 10/05/2024 MILIND MARIA DOLORES Uncontrolled hypertension I10 ; Hyperlipidemia, unspecified E78.5 ; Cerebrovascular accident (CVA) due to embolism of other cerebral artery I63.49 ; First degree AV block I44.0 and Seasonal allergies J30.2 [facility] [address] [place] [address] 10/26/2024 MILIND MARIA DOLORES Uncontrolled hypertension I10 ; Hyperlipidemia, unspecified E78.5 ; Cerebrovascular accident (CVA) due to embolism of other cerebral artery I63.49 ; First degree AV block I44.0 and Seasonal allergies J30.2 [facility] [address] [place] [address] 11/15/2024 MILIND MARIA DOLORES Uncontrolled hypertension I10 ; Hyperlipidemia, unspecified E78.5 ; Cerebrovascular accident (CVA) due to embolism of other cerebral artery I63.49 ; First degree AV block I44.0 ; Seasonal allergies J30.2 and Encounter for screening for malignant neoplasm of prostate Z12.5 [address] [facility] [address] [place] [address] 12/10/[address] [facility] [address] [facility] [address] [place] [address] 12/15/[address] [facility] [address] [facility] [address] [place] [address] 12/16/[address] [facility] [address] [place] [address] 01/12/[address] [facility] [address] [place] [address] 01/13/[address] [facility] [address] [place] [address] 02/27/[address] [facility] [address] [facility] [address] [place], [place] 03/19/2024 TALAL CARVALHO [address] [facility] [address] [place] [address] 03/22/[address] [facility] [address] [place] [address] 03/29/[address] [facility] [address] [place] [address] 05/31/2024 TALJAZ CHRISTYAN Muscle spasm of back M62.830 [address] [facility] [address] [place] [address] 06/28/[address] [facility] [address] [place] [address] 06/28/[address] [facility] [address] [place] [address] 07/12/[address] [facility] [address] [facility] [address] [place], [place] 07/22/2024 JEANETTE CALDERA [address] [facility] [address] [place], [place] 07/26/[address] [facility] [address] [facility] [address] [place] [address] 08/02/[address] [facility] [address] [place] [address] 10/07/2024 MILIND WHITTEN [facility] [address] [facility] [place] [address] 10/07/2024 MILIND MARIA DOLORES [facility] [address] [facility] [place] [address] 10/08/2024 MILIND WHITTEN [facility] [address] [facility] [place] [address] 10/08/[address] [facility] [address] [facility] [address] [place] [address] 10/11/2024 MILIND WHITTEN [facility] [address] [facility] [place] [address] 11/05/[address] [facility] [address] [facility] [address] [place] [address] 07/01/2024 DOMINIC CAMPOS ASSESSMENTS Encounter Date Diagnosis Assessment Notes Treatment Notes Treatment Clinical Notes Section Notes 12/11/2023 Muscle spasm of back (ICD-10 - M62.830) #Muscle spasm. Left mid back. No alarm symptoms. Likely secondary to restarting golf swing in the past 2 weeks. Discussed continued Tylenol. Ice as needed can also trial Salonpas with lidocaine patch during the day. Will give cyclobenzaprine to take at bedtime. Reviewed risk benefits adverse effects of medication. Reports he has tolerated muscle relaxer well in the past. Follow-up if no improvement in 1 to 2 weeks sooner with any new or worsening symptoms. Will hold off on golf for now. #Left arm pain. Likely mild extensor tendinitis. No numbness tingling or weakness. Discussed symptomatic management and activity modification. Follow-up if no improvement or with new or worsening symptoms. #HTN- BP well controlled on current regimen. Case discussed with collaborating physician Rosa Carvalho who reviewed the assessment and plan. Chart, medications, labs, vital signs reviewed. Dictation was accomplished with the use of [employer] voice recognition software, prone to medical misidentifications and grammatical errors. This is unintentional and the practitioner does try to identify and correct these, but some could still be present. Please do not hesitate to contact practitioner for clarification. All questions answered to patients satisfaction. Patient verbalized understanding of diagnosis and treatments explained. To call sooner prior to next visit it any questions/concerns arise. 12/11/2023 Left arm pain (ICD-10 - M79.602) #Muscle spasm. Left mid back. No alarm symptoms. Likely secondary to restarting golf swing in the past 2 weeks. Discussed continued Tylenol. Ice as needed can also trial Salonpas with lidocaine patch during the day. Will give cyclobenzaprine to take at bedtime. Reviewed risk benefits adverse effects of medication. Reports he has tolerated muscle relaxer well in the past. Follow-up if no improvement in 1 to 2 weeks sooner with any new or worsening symptoms. Will hold off on golf for now. #Left arm pain. Likely mild extensor tendinitis. No numbness tingling or weakness. Discussed symptomatic management and activity modification. Follow-up if no improvement or with new or worsening symptoms. #HTN- BP well controlled on current regimen. Case discussed with collaborating physician Rosa Carvalho who reviewed the assessment and plan. Chart, medications, labs, vital signs reviewed. Dictation was accomplished with the use of [employer] voice recognition software, prone to medical misidentifications and grammatical errors. This is unintentional and the practitioner does try to identify and correct these, but some could still be present. Please do not hesitate to contact practitioner for clarification. All questions answered to patients satisfaction. Patient verbalized understanding of diagnosis and treatments explained. To call sooner prior to next visit it any questions/concerns arise. 12/15/2023 Strain of left forearm, initial encounter (ICD-10 - S56.912A) Supportive care discussed Should refrain from golfing until improved Can continue topicals and heat Anti-inflammatories short course 01/13/2024 Strain of left forearm, initial encounter (ICD-10 - S56.912A) Discussed supportive care and rest He keeps reaggravated in these injuries playing golf Will refer to PT Anti-inflammatories and muscle relaxants, Very short course of NSAIDs Of note, some information is being carried forward from prior records for informational purposes only and is being cited so that efficiency, safety and quality of the patient's care is not compromised This note was prepared using voice recognition software and direct typing Please excuse inadvertent hand sizer or typing errors, or uncorrected word substitutions Although every attempt has been made by the provider to proofread this document, occasional misspellings and typographical errors may still be present Due to the previous pandemic, and the use of personal protective equipment (PPE) This may decrease voice recognition accuracy Inadvertent hand sizer errors may occur 01/13/2024 Trapezius strain, right, initial encounter (ICD-10 - S46.811A) Discussed supportive care and rest He keeps reaggravated in these injuries playing golf Will refer to PT Anti-inflammatories and muscle relaxants, Very short course of NSAIDs Of note, some information is being carried forward from prior records for informational purposes only and is being cited so that efficiency, safety and quality of the patient's care is not compromised This note was prepared using voice recognition software and direct typing Please excuse inadvertent hand sizer or typing errors, or uncorrected word substitutions Although every attempt has been made by the provider to proofread this document, occasional misspellings and typographical errors may still be present Due to the previous pandemic, and the use of personal protective equipment (PPE) This may decrease voice recognition accuracy Inadvertent hand sizer errors may occur 03/31/2024 Muscle spasm of back (ICD-10 - M62.830) #Muscle spasm. Left mid back. No alarm symptoms. Likely secondary to restarting golf swing in the past 2 weeks. Discussed continued Tylenol. Ice as needed can also trial Salonpas with lidocaine patch during the day. Will give cyclobenzaprine to take at bedtime. Reviewed risk benefits adverse effects of medication. Reports he has tolerated muscle relaxer well in the past. Follow-up if no improvement in 1 to 2 weeks sooner with any new or worsening symptoms. Will hold off on golf for now. #HTN- BP well controlled on current regimen. Case discussed with collaborating physician Rosa Carvalho who reviewed the assessment and plan. Chart, medications, labs, vital signs reviewed. Dictation was accomplished with the use of [employer] voice recognition software, prone to medical misidentifications and grammatical errors. This is unintentional and the practitioner does try to identify and correct these, but some could still be present. Please do not hesitate to contact practitioner for clarification. All questions answered to patients satisfaction. Patient verbalized understanding of diagnosis and treatments explained. To call sooner prior to next visit it any questions/concerns arise. 03/31/2024 Left arm pain (ICD-10 - M79.602) #Muscle spasm. Left mid back. No alarm symptoms. Likely secondary to restarting golf swing in the past 2 weeks. Discussed continued Tylenol. Ice as needed can also trial Salonpas with lidocaine patch during the day. Will give cyclobenzaprine to take at bedtime. Reviewed risk benefits adverse effects of medication. Reports he has tolerated muscle relaxer well in the past. Follow-up if no improvement in 1 to 2 weeks sooner with any new or worsening symptoms. Will hold off on golf for now. #HTN- BP well controlled on current regimen. Case discussed with collaborating physician Rosa Carvalho who reviewed the assessment and plan. Chart, medications, labs, vital signs reviewed. Dictation was accomplished with the use of [employer] voice recognition software, prone to medical misidentifications and grammatical errors. This is unintentional and the practitioner does try to identify and correct these, but some could still be present. Please do not hesitate to contact practitioner for clarification. All questions answered to patients satisfaction. Patient verbalized understanding of diagnosis and treatments explained. To call sooner prior to next visit it any questions/concerns arise. 05/31/2024 Annual physical exam (ICD-10 - Z00.00) Patient seen and examined. Comprehensive discussion was done on the following. 1. Nutrition: It is important to follow a healthy diet based on lots of vegetables and legumes and good fat. Avoid processed food and processed carbohydrates. Learn to prepare your own meals. Learn to read labels and avoid high fructose corn syrup, processed chemicals added to increase shelf life and preprepared meals. Avoid fast foods. Learn to eat slowly and plan meals for a week. Try to count calories and be mindful off daily calorie intake. Get into the habit of keeping an eye on your weight by using an appropriate scale. Learn to log exercise and discussed fitness Apps like [employer] which can help keep log off calories taken versus calories burned. Local food should be preferred. Discussed D[employer] Versus Clean Fifteen. Discussed healthy supplements like fish oil, Tumeric, Curcumin, Melatonin, Resveratrol, Probiotics, Vitamin-D, Alpha-Lipoic acid, Vitamin-D and coconut oil. 2. It is important to exercise regularly. Is a good habit to walk at least 30-45 minutes a day. Gentle weightlifting with standard precautions to protect the back. Finding activity like cycling or hiking and get into the habit of engaging in it. Stretching before and after the exercises important. It is also important to contact me if there are any problems like shortness of breath, chest pain, back pain and joint or muscle pain associated with the exercise. 3. Discussed age appropriate screening guidelines. Colonoscopy needs to start at age 50 with stool for occult blood as appropriate. There is a new test that can test for genetic abnormalities in the stool sample. This would not replace a colonoscopy but could be used as a screening tool for patients who do not want a colonoscopy. We discussed the importance of early detection of colon cancer. 4. Discussed current PSA screening. PSA screening can be done in most patients between age 50 and 65. However early detection of prostate cancer needs to carefully be balanced with complications with treatment. These include incontinence, impotence etc. Each patient should decide if they would like to have this test. 5. Discussed safe driving and no use of smart phone while driving 6. Age-appropriate immunizations were discussed. A tetanus booster is needed every 10 years. Flu vaccine is recommended every year just before the start of the flu season. Shingles vaccine is recommended after age 50 but not all insurances cover it. Pneumonia vaccine is given after age 65 unless there are certain comorbidities for which it is started earlier. 7. Diagnostic labs were discussed. These could include CBC CMP and lipids with fasting blood glucose and insulin levels. Vitamin D and hemoglobin A1c testing might be appropriate. Patient was instructed to take age-appropriate immunizations. 8. We also discussed [place] order for life-sustaining treatment Healthcare proxy. Patient does not abuse alcohol and does not drink alcohol. We also did not find any evidence of dementia on Mini-Mental exam and plan as to update healthcare proxy and follow-up in a few months 05/31/2024 Muscle spasm of back (ICD-10 - M62.830) 06/28/2024 Toe pain, right (ICD-10 - M79.674) Licha is a 68-year-old male present today for urgent visit. # Toe pain: Patient reports after to 10-minute episodes of brief right foot pain and burning sensation to digits 3-5. First episode occurred on Friday night briefly for 10 minutes and second episode occurred this morning for 5 minutes. Denies any history of numbness or tingling in lower extremities. Patient appears asymptomatic today in office. Has no history of diabetes, gout or trauma to the foot. A1c obtained in office, 5.3%. Patient has had no medication changes in the past. Patient is a former smoker but denies any current alcohol or tobacco use. Denies any heavy meat or seafood consumption. Denies any changes normal routine. 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 Reports symptoms go away without intervention. Patient has an unremarkable physical exam of both feet bilaterally. No presentation of gout, cellulitis, fracture or peripheral neuropathy. Plan to obtain lab work including CBC, CMP, folic acid, uric acid, vitamin B12 and A1c. Plan to follow-up in 1 month. Will consider EMG, neurology follow-up, or trial of gabapentin if labs are unremarkable. Recommended flgc-ane-veulbzf anti-inflammatories to be used as needed if another episode develops or last longer than 10 minutes. All questions answered to patients satisfaction. Patient verbalized understanding of diagnosis and treatments explained. To call sooner prior to next visit it any questions/concerns arise. Case discussed with collaborating physician Dr. Carvalho who reviewed the assessment and plan. Chart, medications, labs, vital signs reviewed. Dictation was accomplished with the use of [employer] voice recognition software, prone to medical misidentifications and grammatical errors. This is unintentional and the practitioner does try to identify and correct these, but some could still be present. Please do not hesitate to contact practitioner for clarification. 07/29/2024 Hyperlipidemia, unspecified (ICD-10 - E78.5) Licha is a 68-year-old male present today for 1 month follow-up. #1 month prior he was seen for 10-minute episode of brief right foot pain and burning sensation to digits 3-5. Patient was asymptomatic in office and without history of diabetes, gout or trauma to the foot. A1c obtained in office at that time of 5.3%. Patient denied any medication changes. Was a former smoker but denied any current alcohol or tobacco use. Denied any heavy meat or seafood consumption. Physical exam unremarkable of both feet bilaterally. Blood work including CBC, CMP, folic acid, uric acid, vitamin B12 and A1c all unremarkable. Patient presents today with resolution of symptoms. States he has not had an episode of foot pain or tingling since prior month. Bilateral feet unremarkable on today's physical exam. No need to continue the use of pvbt-olt-zwtkhif anti-inflammatory such as ibuprofen. No need for EMG or neurology referral. No further management needed. Discussed calling the office if symptoms return. #Hypertension: Blood pressure stable in office today. Patient reports he monitors his blood pressure at home and occasionally will have evening blood pressure readings of systolic 130s-140s. On occasion patient reports during these times he feels his ears become hot. Of note patient also endorses slight dizziness/lightheaded ness when standing too fast. Plan to keep medication regimen the same including amlodipine 5 mg p.o. once daily. Plan to continue monitoring blood pressure at home twice daily and call the office if he has consistent readings of systolic 140s. As he does experience symptoms of hypotension when standing too fast. Advised to always rise slowly from seated to standing position due to the use of BP medication. Patient aware and agreeable with plan. #Hyperlipidemia: Plan to continue atorvastatin 40 mg po once daily. #Patient will follow up early August for a preop visit regarding future colonoscopy. All questions answered to patients satisfaction. Patient verbalized understanding of diagnosis and treatments explained. To call sooner prior to next visit it any questions/concerns arise. Case discussed with collaborating physician Dr. Carvalho who reviewed the assessment and plan. Chart, medications, labs, vital signs reviewed. Dictation was accomplished with the use of [employer] voice recognition software, prone to medical misidentifications and grammatical errors. This is unintentional and the practitioner does try to identify and correct these, but some could still be present. Please do not hesitate to contact practitioner for clarification. 07/29/2024 Toe pain, right (ICD-10 - M79.674) Licha is a 68-year-old male present today for 1 month follow-up. #1 month prior he was seen for 10-minute episode of brief right foot pain and burning sensation to digits 3-5. Patient was asymptomatic in office and without history of diabetes, gout or trauma to the foot. A1c obtained in office at that time of 5.3%. Patient denied any medication changes. Was a former smoker but denied any current alcohol or tobacco use. Denied any heavy meat or seafood consumption. Physical exam unremarkable of both feet bilaterally. Blood work including CBC, CMP, folic acid, uric acid, vitamin B12 and A1c all unremarkable. Patient presents today with resolution of symptoms. States he has not had an episode of foot pain or tingling since prior month. Bilateral feet unremarkable on today's physical exam. No need to continue the use of kgua-jfq-phbifhj anti-inflammatory such as ibuprofen. No need for EMG or neurology referral. No further management needed. Discussed calling the office if symptoms return. #Hypertension: Blood pressure stable in office today. Patient reports he monitors his blood pressure at home and occasionally will have evening blood pressure readings of systolic 130s-140s. On occasion patient reports during these times he feels his ears become hot. Of note patient also endorses slight dizziness/lightheaded ness when standing too fast. Plan to keep medication regimen the same including amlodipine 5 mg p.o. once daily. Plan to continue monitoring blood pressure at home twice daily and call the office if he has consistent readings of systolic 140s. As he does experience symptoms of hypotension when standing too fast. Advised to always rise slowly from seated to standing position due to the use of BP medication. Patient aware and agreeable with plan. #Hyperlipidemia: Plan to continue atorvastatin 40 mg po once daily. #Patient will follow up early August for a preop visit regarding future colonoscopy. All questions answered to patients satisfaction. Patient verbalized understanding of diagnosis and treatments explained. To call sooner prior to next visit it any questions/concerns arise. Case discussed with collaborating physician Dr. Carvalho who reviewed the assessment and plan. Chart, medications, labs, vital signs reviewed. Dictation was accomplished with the use of [employer] voice recognition software, prone to medical misidentifications and grammatical errors. This is unintentional and the practitioner does try to identify and correct these, but some could still be present. Please do not hesitate to contact practitioner for clarification. 08/13/2024 Colon cancer screening (ICD-10 - Z12.11) This is to inform you that I have examined our patient and after reviewing all clinically relevant information I find the patient to be medically stable, and is at an acceptable risk and fit to undergo screening colonoscopy as mentioned above under anesthesia with its attendant risks. Please review the attached history and physical will help you in the management of this patient Preoperative cardiac risk index risk/Yuen MARTHA *0.1% risk of [place], cardiac arrest or other cardiac events intraoperatively or up to 30 days postop [place] RCI *1% 30 day risk of [place] or cardiac arrest EKG performed in office today demonstrating sinus bradycardia with first-degree AV block. VA interval of 254 ms. No evidence of ischemia, no inverted T waves. Patient further asymptomatic in office without chest pain, shortness of breath, diaphoresis, or dyspnea on exertion. Please do not hesitate to further contact me for information or questions # Hypertension: Blood pressure stable today 134/82. Continue amlodipine 5 mg once daily. Discussed red flag signs of hypertension including but not limited to headache, blurry vision, chest pain, difficulty breathing, dizziness, or weakness. Will continue to monitor. # Glaucoma: Continue Lumigan 0.01% solution 1 drop into affected eye in the evening once daily. Continue Combigan 0.2 to 0.5% solution 1 drop into affected eye twice daily. Will continue to monitor. # Seasonal allergies: Continue loratadine 10 mg once daily as needed. Continue Flonase 50 mcg 1 spray in each nostril daily as needed for allergy symptoms. Will continue to monitor. # Hyperlipidemia: Lipid panel last obtained 10/20/2023 within normal limits. Continue atorvastatin calcium 40 mg once daily. Will continue to monitor. 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 Patient advised to discontinue clopidogrel 5 days prior to colonoscopy and then to resume medication 1 day following the procedure. Discussed importance of discontinuing this medication prior to procedure to reduce risk of bleeding. Patient understanding. All questions have been answered to patient's satisfaction. Patient verbalized understanding of diagnosis and treatments explained. Advised to call sooner prior to next visit it any questions/concerns arise. Case discussed with collaborating physician Caren Carvalho who reviewed the assessment and plan. Chart, medications, labs, vital signs reviewed. Dictation was accomplished with the use of [employer] voice recognition software, which is prone to medical misidentifications and grammatical errors. This are unintentional and the practitioner does try to identify and correct these, but some could still be present. Please do not hesitate to contact practitioner for clarification. 08/13/2024 Screening for cardiovascular condition (ICD-10 - Z13.6) This is to inform you that I have examined our patient and after reviewing all clinically relevant information I find the patient to be medically stable, and is at an acceptable risk and fit to undergo screening colonoscopy as mentioned above under anesthesia with its attendant risks. Please review the attached history and physical will help you in the management of this patient Preoperative cardiac risk index risk/Yuen MARTHA *0.1% risk of [place], cardiac arrest or other cardiac events intraoperatively or up to 30 days postop [place] RCI *1% 30 day risk of [place] or cardiac arrest EKG performed in office today demonstrating sinus bradycardia with first-degree AV block. VA interval of 254 ms. No evidence of ischemia, no inverted T waves. Patient further asymptomatic in office without chest pain, shortness of breath, diaphoresis, or dyspnea on exertion. Please do not hesitate to further contact me for information or questions # Hypertension: Blood pressure stable today 134/82. Continue amlodipine 5 mg once daily. Discussed red flag signs of hypertension including but not limited to headache, blurry vision, chest pain, difficulty breathing, dizziness, or weakness. Will continue to monitor. # Glaucoma: Continue Lumigan 0.01% solution 1 drop into affected eye in the evening once daily. Continue Combigan 0.2 to 0.5% solution 1 drop into affected eye twice daily. Will continue to monitor. # Seasonal allergies: Continue loratadine 10 mg once daily as needed. Continue Flonase 50 mcg 1 spray in each nostril daily as needed for allergy symptoms. Will continue to monitor. # Hyperlipidemia: Lipid panel last obtained 10/20/2023 within normal limits. Continue atorvastatin calcium 40 mg once daily. Will continue to monitor. 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 Patient advised to discontinue clopidogrel 5 days prior to colonoscopy and then to resume medication 1 day following the procedure. Discussed importance of discontinuing this medication prior to procedure to reduce risk of bleeding. Patient understanding. All questions have been answered to patient's satisfaction. Patient verbalized understanding of diagnosis and treatments explained. Advised to call sooner prior to next visit it any questions/concerns arise. Case discussed with collaborating physician Caren Carvalho who reviewed the assessment and plan. Chart, medications, labs, vital signs reviewed. Dictation was accomplished with the use of [employer] voice recognition software, which is prone to medical misidentifications and grammatical errors. This are unintentional and the practitioner does try to identify and correct these, but some could still be present. Please do not hesitate to contact practitioner for clarification. 10/05/2024 Hyperlipidemia, unspecified (ICD-10 - E78.5) Licha is a pleasant 69-year-old male with a complex medical history of CVA x 2, essential hypertension, glaucoma, seasonal allergies who presents to the office today for a follow-up. #Foot pain: Resolved #Blood pressure concerns: Patient is scheduled for a blood pressure check at the end of the week. Blood pressure in office today is noted to be 134/80. Patient states that his blood pressure does fluctuate and he does have a readings at home that he will bring in for his follow-up. Renal artery ultrasound ordered today for suspected renal artery stenosis due to the fluctuation of blood pressures. Continue taking amlodipine besilate 5 mg tablets consider switching patient from amlodipine to losartan. #Cardiology referral: Cardiology referral placed today for further evaluation of uncontrolled hypertension and AV block. #Hyperlipidemia: Continue atorvastatin calcium 40 mg tablets, previous cardiology note recommended an LDL level of under 70. At this time patient's recent LDL is 42 from lab values conducted on 09/29/2024. This is reassuring for cholesterol goal. #Personal concerns: At this time patient declines any assistance or references for [facility], patient reassured to call the [...] Dictation was accomplished with the use of [employer] voice recognition software, which is prone to medical misidentifications and grammatical errors. This are unintentional and the practitioner does try to identify and correct these, but some could still be present. Please do not hesitate to contact practitioner for clarification. 10/05/2024 Uncontrolled hypertension (ICD-10 - I10) Licha is a pleasant 69-year-old male with a complex medical history of CVA x 2, essential hypertension, glaucoma, seasonal allergies who presents to the office today for a follow-up. #Foot pain: Resolved #Blood pressure concerns: Patient is scheduled for a blood pressure check at the end of the week. Blood pressure in office today is noted to be 134/80. Patient states that his blood pressure does fluctuate and he does have a readings at home that he will bring in for his follow-up. Renal artery ultrasound ordered today for suspected renal artery stenosis due to the fluctuation of blood pressures. Continue taking amlodipine besilate 5 mg tablets consider switching patient from amlodipine to losartan. #Cardiology referral: Cardiology referral placed today for further evaluation of uncontrolled hypertension and AV block. #Hyperlipidemia: Continue atorvastatin calcium 40 mg tablets, previous cardiology note recommended an LDL level of under 70. At this time patient's recent LDL is 42 from lab values conducted on 09/29/2024. This is reassuring for cholesterol goal. #Personal concerns: At this time patient declines any assistance or references for [facility], patient reassured to call the [...] Dictation was accomplished with the use of [employer] voice recognition software, which is prone to medical misidentifications and grammatical errors. This are unintentional and the practitioner does try to identify and correct these, but some could still be present. Please do not hesitate to contact practitioner for clarification. 10/26/2024 Uncontrolled hypertension (ICD-10 - I10) Licha [...] patient declines any assistance or references for [facility], patient reassured to call the [...] Dictation was accomplished with the use of [employer] voice recognition software, which is prone to medical misidentifications and grammatical errors. This are unintentional and the practitioner does try to identify and correct these, but some could still be present. Please do not hesitate to contact practitioner for clarification. 11/15/2024 Uncontrolled hypertension (ICD-10 - I10) Licha [...] patient declines any assistance or references for [facility], patient reassured to call the [...] Dictation was accomplished with the use of [employer] voice recognition software, which is prone to [...] patient declines any assistance or references for [facility], patient reassured to call the [...] Dictation was accomplished with the use of [employer] voice recognition software, which is prone to [...] patient declines any assistance or references for [facility], patient reassured to call the [...] Dictation was accomplished with the use of [employer] voice recognition software, which is prone to medical misidentifications and grammatical errors. This are unintentional and the practitioner does try to identify and correct these, but some could still be present. Please do not hesitate to contact practitioner for clarification. 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 #Foot pain: Resolved #Blood pressure concerns: Patient is scheduled for a blood pressure check at the end of the week. Blood pressure in office today is noted to be 134/80. Patient states that his blood pressure does fluctuate and he does have a readings at home that he will bring in for his follow-up. Renal artery ultrasound ordered today for suspected renal artery stenosis due to the fluctuation of blood pressures. Continue taking amlodipine besilate 5 mg tablets consider switching patient from amlodipine to losartan. #Cardiology referral: Cardiology referral placed today for further evaluation of uncontrolled hypertension and AV block. #Hyperlipidemia: Continue atorvastatin calcium 40 mg tablets, previous cardiology note recommended an LDL level of under 70. At this time patient's recent LDL is 42 from lab values conducted on 09/29/2024. This is reassuring for cholesterol goal. #Personal concerns: At this time patient declines any assistance or references for [facility], patient reassured to call the [...] Dictation was accomplished with the use of [employer] voice recognition software, which is prone to medical misidentifications and grammatical errors. This are unintentional and the practitioner does try to identify and correct these, but some could still be present. Please do not hesitate to contact practitioner for clarification. 08/13/2024 Essential (primary) hypertension (ICD-10 - I10) This is to inform you that I have examined our patient and after reviewing all clinically relevant information I find the patient to be medically stable, and is at an acceptable risk and fit to undergo screening colonoscopy as mentioned above under anesthesia with its attendant risks. Please review the attached history and physical will help you in the management of this patient Preoperative cardiac risk index risk/Yuen MARTHA *0.1% risk of [place], cardiac arrest or other cardiac events intraoperatively or up to 30 days postop Cardona RCI *1% 30 day risk of [place] or cardiac arrest EKG performed in office today demonstrating sinus bradycardia with first-degree AV block. VA interval of 254 ms. No evidence of ischemia, no inverted T waves. Patient further asymptomatic in office without chest pain, shortness of breath, diaphoresis, or dyspnea on exertion. Please do not hesitate to further contact me for information or questions # Hypertension: Blood pressure stable today 134/82. Continue amlodipine 5 mg once daily. Discussed red flag signs of hypertension including but not limited to headache, blurry vision, chest pain, difficulty breathing, dizziness, or weakness. Will continue to monitor. # Glaucoma: Continue Lumigan 0.01% solution 1 drop into affected eye in the evening once daily. Continue Combigan 0.2 to 0.5% solution 1 drop into affected eye twice daily. Will continue to monitor. # Seasonal allergies: Continue loratadine 10 mg once daily as needed. Continue Flonase 50 mcg 1 spray in each nostril daily as needed for allergy symptoms. Will continue to monitor. # Hyperlipidemia: Lipid panel last obtained 10/20/2023 within normal limits. Continue atorvastatin calcium 40 mg once daily. Will continue to monitor. 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 Patient advised to discontinue clopidogrel 5 days prior to colonoscopy and then to resume medication 1 day following the procedure. Discussed importance of discontinuing this medication prior to procedure to reduce risk of bleeding. Patient understanding. All questions have been answered to patient's satisfaction. Patient verbalized understanding of diagnosis and treatments explained. Advised to call sooner prior to next visit it any questions/concerns arise. Case discussed with collaborating physician Caren Carvalho who reviewed the assessment and plan. Chart, medications, labs, vital signs reviewed. Dictation was accomplished with the use of [employer] voice recognition software, which is prone to medical misidentifications and grammatical errors. This are unintentional and the practitioner does try to identify and correct these, but some could still be present. Please do not hesitate to contact practitioner for clarification. 07/29/2024 Essential (primary) hypertension (ICD-10 - I10) Licha is a 68-year-old male present today for 1 month follow-up. #1 month prior he was seen for 10-minute episode of brief right foot pain and burning sensation to digits 3-5. Patient was asymptomatic in office and without history of diabetes, gout or trauma to the foot. A1c obtained in office at that time of 5.3%. Patient denied any medication changes. Was a former smoker but denied any current alcohol or tobacco use. Denied any heavy meat or seafood consumption. Physical exam unremarkable of both feet bilaterally. Blood work including CBC, CMP, folic acid, uric acid, vitamin B12 and A1c all unremarkable. Patient presents today with resolution of symptoms. States he has not had an episode of foot pain or tingling since prior month. Bilateral feet unremarkable on today's physical exam. No need to continue the use of [id number] anti-inflammatory such as ibuprofen. No need for EMG or neurology referral. No further management needed. Discussed calling the office if symptoms return. #Hypertension: Blood pressure stable in office today. Patient reports he monitors his blood pressure at home and occasionally will have evening blood pressure readings of systolic 130s-140s. On occasion patient reports during these times he feels his ears become hot. Of note patient also endorses slight dizziness/lightheaded ness when standing too fast. Plan to keep medication regimen the same including amlodipine 5 mg p.o. once daily. Plan to continue monitoring blood pressure at home twice daily and call the office if he has consistent readings of systolic 140s. As he does experience symptoms of hypotension when standing too fast. Advised to always rise slowly from seated to standing position due to the use of BP medication. Patient aware and agreeable with plan. #Hyperlipidemia: Plan to continue atorvastatin 40 mg po once daily. #Patient will follow up early August for a preop visit regarding future colonoscopy. All questions answered to patients satisfaction. Patient verbalized understanding of diagnosis and treatments explained. To call sooner prior to next visit it any questions/concerns arise. Case discussed with collaborating physician Dr. Carvalho who reviewed the assessment and plan. Chart, medications, labs, vital signs reviewed. Dictation was accomplished with the use of [employer] voice recognition software, prone to medical misidentifications and grammatical errors. This is unintentional and the practitioner does try to identify and correct these, but some could still be present. Please do not hesitate to contact practitioner for clarification. 05/31/2024 Hyperlipidemia, unspecified hyperlipidemia type (ICD-10 - E78.5) Patient seen and examined. Comprehensive discussion was done on the following. 1. Nutrition: It is important to follow a healthy diet based on lots of vegetables and legumes and good fat. Avoid processed food and processed carbohydrates. Learn to prepare your own meals. Learn to read labels and avoid high fructose corn syrup, processed chemicals added to increase shelf life and preprepared meals. Avoid fast foods. Learn to eat slowly and plan meals for a week. Try to count calories and be mindful off daily calorie intake. Get into the habit of keeping an eye on your weight by using an appropriate scale. Learn to log exercise and discussed fitness Apps like [employer] which can help keep log off calories taken versus calories burned. Local food should be preferred. Discussed [employer] Fifteen. Discussed healthy supplements like fish oil, Tumeric, Curcumin, Melatonin, Resveratrol, Probiotics, Vitamin-D, Alpha-Lipoic acid, Vitamin-D and coconut oil. 2. It is important to exercise regularly. Is a good habit to walk at least 30-45 minutes a day. Gentle weightlifting with standard precautions to protect the back. Finding activity like cycling or hiking and get into the habit of engaging in it. Stretching before and after the exercises important. It is also important to contact me if there are any problems like shortness of breath, chest pain, back pain and joint or muscle pain associated with the exercise. 3. Discussed age appropriate screening guidelines. Colonoscopy needs to start at age 50 with stool for occult blood as appropriate. There is a new test that can test for genetic abnormalities in the stool sample. This would not replace a colonoscopy but could be used as a screening tool for patients who do not want a colonoscopy. We discussed the importance of early detection of colon cancer. 4. Discussed current PSA screening. PSA screening can be done in most patients between age 50 and 65. However early detection of prostate cancer needs to carefully be balanced with complications with treatment. These include incontinence, impotence etc. Each patient should decide if they would like to have this test. 5. Discussed safe driving and no use of smart phone while driving 6. Age-appropriate immunizations were discussed. A tetanus booster is needed every 10 years. Flu vaccine is recommended every year just before the start of the flu season. Shingles vaccine is recommended after age 50 but not all insurances cover it. Pneumonia vaccine is given after age 65 unless there are certain comorbidities for which it is started earlier. 7. Diagnostic labs were discussed. These could include CBC CMP and lipids with fasting blood glucose and insulin levels. Vitamin D and hemoglobin A1c testing might be appropriate. Patient was instructed to take age-appropriate immunizations. 8. We also discussed [place] order for life-sustaining treatment Healthcare proxy. Patient does not abuse alcohol and does not drink alcohol. We also did not find any evidence of dementia on Mini-Mental exam and plan as to update healthcare proxy and follow-up in a few months 03/31/2024 Essential (primary) hypertension (ICD-10 - I10) #Muscle spasm. Left mid back. No alarm symptoms. Likely secondary to restarting golf swing in the past 2 weeks. Discussed continued Tylenol. Ice as needed can also trial Salonpas with lidocaine patch during the day. Will give cyclobenzaprine to take at bedtime. Reviewed risk benefits adverse effects of medication. Reports he has tolerated muscle relaxer well in the past. Follow-up if no improvement in 1 to 2 weeks sooner with any new or worsening symptoms. Will hold off on golf for now. #HTN- BP well controlled on current regimen. Case discussed with collaborating physician Rosa Carvalho who reviewed the assessment and plan. Chart, medications, labs, vital signs reviewed. Dictation was accomplished with the use of [employer] voice recognition software, prone to medical misidentifications and grammatical errors. This is unintentional and the practitioner does try to identify and correct these, but some could still be present. Please do not hesitate to contact practitioner for clarification. All questions answered to patients satisfaction. Patient verbalized understanding of diagnosis and treatments explained. To call sooner prior to next visit it any questions/concerns arise. 12/11/2023 Essential (primary) hypertension (ICD-10 - I10) #Muscle spasm. Left mid back. No alarm symptoms. Likely secondary to restarting golf swing in the past 2 weeks. Discussed continued Tylenol. Ice as needed can also trial Salonpas with lidocaine patch during the day. Will give cyclobenzaprine to take at bedtime. Reviewed risk benefits adverse effects of medication. Reports he has tolerated muscle relaxer well in the past. Follow-up if no improvement in 1 to 2 weeks sooner with any new or worsening symptoms. Will hold off on golf for now. #Left arm pain. Likely mild extensor tendinitis. No numbness tingling or weakness. Discussed symptomatic management and activity modification. Follow-up if no improvement or with new or worsening symptoms. #HTN- BP well controlled on current regimen. Case discussed with collaborating physician Rosa Carvalho who reviewed the assessment and plan. Chart, medications, labs, vital signs reviewed. Dictation was accomplished with the use of [employer] voice recognition software, prone to medical misidentifications and grammatical errors. This is unintentional and the practitioner does try to identify and correct these, but some could still be present. Please do not hesitate to contact practitioner for clarification. All questions answered to patients satisfaction. Patient verbalized understanding of diagnosis and treatments explained. To call sooner prior to next visit it any questions/concerns arise. 05/31/2024 Essential (primary) hypertension (ICD-10 - I10) Patient seen and examined. Comprehensive discussion was done on the following. 1. Nutrition: It is important to follow a healthy diet based on lots of vegetables and legumes and good fat. Avoid processed food and processed carbohydrates. Learn to prepare your own meals. Learn to read labels and avoid high fructose corn syrup, processed chemicals added to increase shelf life and preprepared meals. Avoid fast foods. Learn to eat slowly and plan meals for a week. Try to count calories and be mindful off daily calorie intake. Get into the habit of keeping an eye on your weight by using an appropriate scale. Learn to log exercise and discussed fitness Apps like [employer] which can help keep log off calories taken versus calories burned. Local food should be preferred. Discussed [employer] Vers[employer]. Discussed healthy supplements like fish oil, Tumeric, Curcumin, Melatonin, Resveratrol, Probiotics, Vitamin-D, Alpha-Lipoic acid, Vitamin-D and coconut oil. 2. It is important to exercise regularly. Is a good habit to walk at least 30-45 minutes a day. Gentle weightlifting with standard precautions to protect the back. Finding activity like cycling or hiking and get into the habit of engaging in it. Stretching before and after the exercises important. It is also important to contact me if there are any problems like shortness of breath, chest pain, back pain and joint or muscle pain associated with the exercise. 3. Discussed age appropriate screening guidelines. Colonoscopy needs to start at age 50 with stool for occult blood as appropriate. There is a new test that can test for genetic abnormalities in the stool sample. This would not replace a colonoscopy but could be used as a screening tool for patients who do not want a colonoscopy. We discussed the importance of early detection of colon cancer. 4. Discussed current PSA screening. PSA screening can be done in most patients between age 50 and 65. However early detection of prostate cancer needs to carefully be balanced with complications with treatment. These include incontinence, impotence etc. Each patient should decide if they would like to have this test. 5. Discussed safe driving and no use of smart phone while driving 6. Age-appropriate immunizations were discussed. A tetanus booster is needed every 10 years. Flu vaccine is recommended every year just before the start of the flu season. Shingles vaccine is recommended after age 50 but not all insurances cover it. Pneumonia vaccine is given after age 65 unless there are certain comorbidities for which it is started earlier. 7. Diagnostic labs were discussed. These could include CBC CMP and lipids with fasting blood glucose and insulin levels. Vitamin D and hemoglobin A1c testing might be appropriate. Patient was instructed to take age-appropriate immunizations. 8. We also discussed [place] order for life-sustaining treatment Healthcare proxy. Patient does not abuse alcohol and does not drink alcohol. 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 Please review the attached history and physical will help you in the management of this patient Preoperative cardiac risk index risk/Yuen MARTHA *0.1% risk of [place], cardiac arrest or other cardiac events intraoperatively or up to 30 days postop Cardona RCI *1% 30 day risk of [place] or cardiac arrest EKG performed in office today demonstrating sinus bradycardia with first-degree AV block. VA interval of 254 ms. No evidence of ischemia, no inverted T waves. Patient further asymptomatic in office without chest pain, shortness of breath, diaphoresis, or dyspnea on exertion. Please do not hesitate to further contact me for information or questions # Hypertension: Blood pressure stable today 134/82. Continue amlodipine 5 mg once daily. Discussed red flag signs of hypertension including but not limited to headache, blurry vision, chest pain, difficulty breathing, dizziness, or weakness. Will continue to monitor. # Glaucoma: Continue Lumigan 0.01% solution 1 drop into affected eye in the evening once daily. Continue Combigan 0.2 to 0.5% solution 1 drop into affected eye twice daily. Will continue to monitor. # Seasonal allergies: Continue loratadine 10 mg once daily as needed. Continue Flonase 50 mcg 1 spray in each nostril daily as needed for allergy symptoms. Will continue to monitor. # Hyperlipidemia: Lipid panel last obtained 10/20/2023 within normal limits. Continue atorvastatin calcium 40 mg once daily. Will continue to monitor. 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 Patient advised to discontinue clopidogrel 5 days prior to colonoscopy and then to resume medication 1 day following the procedure. Discussed importance of discontinuing this medication prior to procedure to reduce risk of bleeding. Patient understanding. All questions have been answered to patient's satisfaction. Patient verbalized understanding of diagnosis and treatments explained. Advised to call sooner prior to next visit it any questions/concerns arise. Case discussed with collaborating physician Caren Carvalho who reviewed the assessment and plan. Chart, medications, labs, vital signs reviewed. Dictation was accomplished with the use of [employer] voice recognition software, which is prone to medical misidentifications and grammatical errors. This are unintentional and the practitioner does try to identify and correct these, but some could still be present. Please do not hesitate to contact practitioner for clarification. 10/05/2024 First degree AV block (ICD-10 - I44.0) Licha is a pleasant 69-year-old male with a complex medical history of CVA x 2, essential hypertension, glaucoma, seasonal allergies who presents to the office today for a follow-up. #Foot pain: Resolved #Blood pressure concerns: Patient is scheduled for a blood pressure check at the end of the week. Blood pressure in office today is noted to be 134/80. Patient states that his blood pressure does fluctuate and he does have a readings at home that he will bring in for his follow-up. Renal artery ultrasound ordered today for suspected renal artery stenosis due to the fluctuation of blood pressures. Continue taking amlodipine besilate 5 mg tablets consider switching patient from amlodipine to losartan. #Cardiology referral: Cardiology referral placed today for further evaluation of uncontrolled hypertension and AV block. #Hyperlipidemia: Continue atorvastatin calcium 40 mg tablets, previous cardiology note recommended an LDL level of under 70. At this time patient's recent LDL is 42 from lab values conducted on 09/29/2024. This is reassuring for cholesterol goal. #Personal concerns: At this time patient declines any assistance or references for [facility], patient reassured to call the [...] Dictation was accomplished with the use of [employer] voice recognition software, which is prone to [...] patient declines any assistance or references for [facility], patient reassured to call the [...] Dictation was accomplished with the use of [employer] voice recognition software, which is prone to [...] patient declines any assistance or references for [facility], patient reassured to call the [...] Dictation was accomplished with the use of [employer] voice recognition software, which is prone to [...] patient declines any assistance or references for [facility], patient reassured to call the [...] Dictation was accomplished with the use of [employer] voice recognition software, which is prone to [...] patient declines any assistance or references for [facility], patient reassured to call the [...] Dictation was accomplished with the use of [employer] voice recognition software, which is prone to medical misidentifications and grammatical errors. This are unintentional and the practitioner does try to identify and correct these, but some could still be present. Please do not hesitate to contact practitioner for clarification. 10/05/2024 Seasonal allergies (ICD-10 - J30.2) Licha is a pleasant 69-year-old male with a complex medical history of CVA x 2, essential hypertension, glaucoma, seasonal allergies who presents to the office today for a follow-up. #Foot pain: Resolved #Blood pressure concerns: Patient is scheduled for a blood pressure check at the end of the week. Blood pressure in office today is noted to be 134/80. Patient states that his blood pressure does fluctuate and he does have a readings at home that he will bring in for his follow-up. Renal artery ultrasound ordered today for suspected renal artery stenosis due to the fluctuation of blood pressures. Continue taking amlodipine besilate 5 mg tablets consider switching patient from amlodipine to losartan. #Cardiology referral: Cardiology referral placed today for further evaluation of uncontrolled hypertension and AV block. #Hyperlipidemia: Continue atorvastatin calcium 40 mg tablets, previous cardiology note recommended an LDL level of under 70. At this time patient's recent LDL is 42 from lab values conducted on 09/29/2024. This is reassuring for cholesterol goal. #Personal concerns: At this time patient declines any assistance or references for [facility], patient reassured to call the [...] Dictation was accomplished with the use of [employer] voice recognition software, which is prone to medical misidentifications and grammatical errors. This are unintentional and the practitioner does try to identify and correct these, but some could still be present. Please do not hesitate to contact practitioner for clarification. 08/13/2024 Hyperlipidemia, unspecified (ICD-10 - E78.5) This is to inform you that I have examined our patient and after reviewing all clinically relevant information I find the patient to be medically stable, and is at an acceptable risk and fit to undergo screening colonoscopy as mentioned above under anesthesia with its attendant risks. Please review the attached history and physical will help you in the management of this patient Preoperative cardiac risk index risk/Yuen MARTHA *0.1% risk of [place], cardiac arrest or other cardiac events intraoperatively or up to 30 days postop Cardona RCI *1% 30 day risk of [place] or cardiac arrest EKG performed in office today demonstrating sinus bradycardia with first-degree AV block. VA interval of 254 ms. No evidence of ischemia, no inverted T waves. Patient further asymptomatic in office without chest pain, shortness of breath, diaphoresis, or dyspnea on exertion. Please do not hesitate to further contact me for information or questions # Hypertension: Blood pressure stable today 134/82. Continue amlodipine 5 mg once daily. Discussed red flag signs of hypertension including but not limited to headache, blurry vision, chest pain, difficulty breathing, dizziness, or weakness. Will continue to monitor. # Glaucoma: Continue Lumigan 0.01% solution 1 drop into affected eye in the evening once daily. Continue Combigan 0.2 to 0.5% solution 1 drop into affected eye twice daily. Will continue to monitor. # Seasonal allergies: Continue loratadine 10 mg once daily as needed. Continue Flonase 50 mcg 1 spray in each nostril daily as needed for allergy symptoms. Will continue to monitor. # Hyperlipidemia: Lipid panel last obtained 10/20/2023 within normal limits. Continue atorvastatin calcium 40 mg once daily. Will continue to monitor. 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 Patient advised to discontinue clopidogrel 5 days prior to colonoscopy and then to resume medication 1 day following the procedure. Discussed importance of discontinuing this medication prior to procedure to reduce risk of bleeding. Patient understanding. All questions have been answered to patient's satisfaction. Patient verbalized understanding of diagnosis and treatments explained. Advised to call sooner prior to next visit it any questions/concerns arise. Case discussed with collaborating physician Caren Carvalho who reviewed the assessment and plan. Chart, medications, labs, vital signs reviewed. Dictation was accomplished with the use of [employer] voice recognition software, which is prone to medical misidentifications and grammatical errors. This are unintentional and the practitioner does try to identify and correct these, but some could still be present. Please do not hesitate to contact practitioner for clarification. 08/13/2024 Chronic glaucoma (ICD-10 - H40.1190) This is to inform you that I have examined our patient and after reviewing all clinically relevant information I find the patient to be medically stable, and is at an acceptable risk and fit to undergo screening colonoscopy as mentioned above under anesthesia with its attendant risks. Please review the attached history and physical will help you in the management of this patient Preoperative cardiac risk index risk/Yuen MARTHA *0.1% risk of [place], cardiac arrest or other cardiac events intraoperatively or up to 30 days postop Cardona RCI *1% 30 day risk of [place] or cardiac arrest EKG performed in office today demonstrating sinus bradycardia with first-degree AV block. VA interval of 254 ms. No evidence of ischemia, no inverted T waves. Patient further asymptomatic in office without chest pain, shortness of breath, diaphoresis, or dyspnea on exertion. Please do not hesitate to further contact me for information or questions # Hypertension: Blood pressure stable today 134/82. Continue amlodipine 5 mg once daily. Discussed red flag signs of hypertension including but not limited to headache, blurry vision, chest pain, difficulty breathing, dizziness, or weakness. Will continue to monitor. # Glaucoma: Continue Lumigan 0.01% solution 1 drop into affected eye in the evening once daily. Continue Combigan 0.2 to 0.5% solution 1 drop into affected eye twice daily. Will continue to monitor. # Seasonal allergies: Continue loratadine 10 mg once daily as needed. Continue Flonase 50 mcg 1 spray in each nostril daily as needed for allergy symptoms. Will continue to monitor. # Hyperlipidemia: Lipid panel last obtained 10/20/2023 within normal limits. Continue atorvastatin calcium 40 mg once daily. Will continue to monitor. 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 Patient advised to discontinue clopidogrel 5 days prior to colonoscopy and then to resume medication 1 day following the procedure. Discussed importance of discontinuing this medication prior to procedure to reduce risk of bleeding. Patient understanding. All questions have been answered to patient's satisfaction. Patient verbalized understanding of diagnosis and treatments explained. Advised to call sooner prior to next visit it any questions/concerns arise. Case discussed with collaborating physician Caren Carvalho who reviewed the assessment and plan. Chart, medications, labs, vital signs reviewed. Dictation was accomplished with the use of [employer] voice recognition software, which is prone to [...] patient declines any assistance or references for [facility], patient reassured to call the [...] Dictation was accomplished with the use of [employer] voice recognition software, which is prone to [...] patient declines any assistance or references for [facility], patient reassured to call the [...] Dictation was accomplished with the use of [employer] voice recognition software, which is prone to [...] patient declines any assistance or references for [facility], patient reassured to call the [...] Dictation was accomplished with the use of [employer] voice recognition software, which is prone to medical misidentifications and grammatical errors. This are unintentional and the practitioner does try to identify and correct these, but some could still be present. Please do not hesitate to contact practitioner for clarification. 08/13/2024 Seasonal allergies (ICD-10 - J30.2) This is to inform you that I have examined our patient and after reviewing all clinically relevant information I find the patient to be medically stable, and is at an acceptable risk and fit to undergo screening colonoscopy as mentioned above under anesthesia with its attendant risks. Please review the attached history and physical will help you in the management of this patient Preoperative cardiac risk index risk/Yuen MARTHA *0.1% risk of [place], cardiac arrest or other cardiac events intraoperatively or up to 30 days postop Cardona RCI *1% 30 day risk of [place] or cardiac arrest EKG performed in office today demonstrating sinus bradycardia with first-degree AV block. VA interval of 254 ms. No evidence of ischemia, no inverted T waves. Patient further asymptomatic in office without chest pain, shortness of breath, diaphoresis, or dyspnea on exertion. Please do not hesitate to further contact me for information or questions # Hypertension: Blood pressure stable today 134/82. Continue amlodipine 5 mg once daily. Discussed red flag signs of hypertension including but not limited to headache, blurry vision, chest pain, difficulty breathing, dizziness, or weakness. Will continue to monitor. # Glaucoma: Continue Lumigan 0.01% solution 1 drop into affected eye in the evening once daily. Continue Combigan 0.2 to 0.5% solution 1 drop into affected eye twice daily. Will continue to monitor. # Seasonal allergies: Continue loratadine 10 mg once daily as needed. Continue Flonase 50 mcg 1 spray in each nostril daily as needed for allergy symptoms. Will continue to monitor. # Hyperlipidemia: Lipid panel last obtained 10/20/2023 within normal limits. Continue atorvastatin calcium 40 mg once daily. Will continue to monitor. 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 Patient advised to discontinue clopidogrel 5 days prior to colonoscopy and then to resume medication 1 day following the procedure. Discussed importance of discontinuing this medication prior to procedure to reduce risk of bleeding. Patient understanding. All questions have been answered to patient's satisfaction. Patient verbalized understanding of diagnosis and treatments explained. Advised to call sooner prior to next visit it any questions/concerns arise. Case discussed with collaborating physician Caren Carvalho who reviewed the assessment and plan. Chart, medications, labs, vital signs reviewed. Dictation was accomplished with the use of [employer] voice recognition software, which is prone to medical misidentifications and grammatical errors. This are unintentional and the practitioner does try to identify and correct these, but some could still be present. Please do not hesitate to contact practitioner for clarification. 08/13/2024 First degree AV block (ICD-10 - I44.0) This is to inform you that I have examined our patient and after reviewing all clinically relevant information I find the patient to be medically stable, and is at an acceptable risk and fit to undergo screening colonoscopy as mentioned above under anesthesia with its attendant risks. Please review the attached history and physical will help you in the management of this patient Preoperative cardiac risk index risk/Yuen MARTHA *0.1% risk of [place], cardiac arrest or other cardiac events intraoperatively or up to 30 days postop Cardona RCI *1% 30 day risk of [place] or cardiac arrest EKG performed in office today demonstrating sinus bradycardia with first-degree AV block. VA interval of 254 ms. No evidence of ischemia, no inverted T waves. Patient further asymptomatic in office without chest pain, shortness of breath, diaphoresis, or dyspnea on exertion. Please do not hesitate to further contact me for information or questions # Hypertension: Blood pressure stable today 134/82. Continue amlodipine 5 mg once daily. Discussed red flag signs of hypertension including but not limited to headache, blurry vision, chest pain, difficulty breathing, dizziness, or weakness. Will continue to monitor. # Glaucoma: Continue Lumigan 0.01% solution 1 drop into affected eye in the evening once daily. Continue Combigan 0.2 to 0.5% solution 1 drop into affected eye twice daily. Will continue to monitor. # Seasonal allergies: Continue loratadine 10 mg once daily as needed. Continue Flonase 50 mcg 1 spray in each nostril daily as needed for allergy symptoms. Will continue to monitor. # Hyperlipidemia: Lipid panel last obtained 10/20/2023 within normal limits. Continue atorvastatin calcium 40 mg once daily. Will continue to monitor. 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 Patient advised to discontinue clopidogrel 5 days prior to colonoscopy and then to resume medication 1 day following the procedure. Discussed importance of discontinuing this medication prior to procedure to reduce risk of bleeding. Patient understanding. All questions have been answered to patient's satisfaction. Patient verbalized understanding of diagnosis and treatments explained. Advised to call sooner prior to next visit it any questions/concerns arise. Case discussed with collaborating physician Caren Carvalho who reviewed the assessment and plan. Chart, medications, labs, vital signs reviewed. Dictation was accomplished with the use of [employer] voice recognition software, which is prone to medical misidentifications and grammatical errors. This are unintentional and the practitioner does try to identify and correct these, but some could still be present. Please do not hesitate to contact practitioner for clarification. PLAN OF TREATMENT Pending Test Test Name Order Date X ray : Hip, right 10/20/2023 X ray : Hip, bilateral 05/16/2022 X ray : LS Spine 05/16/2022 MRA : Head without contrast 02/14/2021 MRI : Brain without Contrast 02/14/2021 EKG 08/13/2024 FOLIC ACID 06/28/2024 LIPID PANEL 02/19/2021 MRI Brain w and w/o Contrast 02/13/2021 LIPID PANEL, STANDARD 12/25/2021 LIPID PANEL, STANDARD 10/27/2023 LIPID PANEL, STANDARD 05/31/2024 COMPREHENSIVE METABOLIC PANEL 06/28/2024 COMPREHENSIVE METABOLIC PANEL 05/31/2024 COMPREHENSIVE METABOLIC PANEL 10/27/2023 COMPREHENSIVE METABOLIC PANEL 12/25/2021 URIC ACID 06/28/2024 CBC (INCLUDES DIFF/PLT) 06/28/2024 CBC (INCLUDES DIFF/PLT) 10/27/2023 CBC (INCLUDES DIFF/PLT) 05/31/2024 CBC (INCLUDES DIFF/PLT) 12/25/2021 URINALYSIS, COMPLETE 12/25/2021 URINALYSIS, COMPLETE 05/31/2024 URINALYSIS, COMPLETE 10/27/2023 HEMOGLOBIN A1c 06/28/2024 VITAMIN B12 06/28/2024 PSA (FREE AND TOTAL) 11/15/2024 Renal Abd Doppler Study 10/05/2024 Next Appt Details Provider Name:MILIND WHITTEN, 08:45:00 AM, [address], [place], [address], Provider Name:MILIND WHITTEN, 11:00:00 AM, [address], [place], [address], Insurance Providers Payer Name Payer Address Payer Phone Subscriber Number Group Number Insured Name Patient Relationship to Insured Coverage Start Date Coverage End Date Medicare Part B J14 [address] [place] [phone] [id number] LICHA LUEVANO Self - patient is the insured 9 [employer] [address] [place] [id number] LICHA LUEVANO Self - patient is the insured 0 MEDICAL (GENERAL) HISTORY Medical History History ICD Code CVA x2, found incidentally o n imaging,Status post workup by cardiology and neurology 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
== END 2024-11-19 12:03 | disposition home or self-care (01) ==
LOC: HO.HCS 11:28
PROVIDERS: Visit Provider Internal Medicine Cardiovascular Disease
DX: R07.89 Other chest pain (principal); I10 Essential (primary) hypertension; I49.3 Ventricular premature depolarization
CPT/HCPCS: 93010; 99214; G2211

== ENCOUNTER → 2024-11-19 11:27 | Outpatient (BNVA) | payer MEDICARE, OTHER, SELFPAY | PROVIDERS: Visit Provider Internal Medicine Cardiovascular Disease | DX: R00.2 Palpitations (principal); R07.89 Other chest pain; I10 Essential (primary) hypertension; I49.3 Ventricular premature depolarization | CPT/HCPCS: 93005; 99212 ==

== ENCOUNTER → 2025-01-07 09:42 | Outpatient (REF) | payer MEDICARE, OTHER, SELFPAY ==
--- NOTE | 2025-01-07 09:45 | CA_ITS ---
Transthoracic Echocardiogram Patient (Last, First, Middle): Selvin Luevano, Gender: Male Date of : 1955 Age: 69 Procedure Date: 01/07/2025 Procedure Type: Transthoracic Echocardiogram Location: OP Height: 170. cm Weight: 76.21 kg BSA: 1.88 m2 Heart Rate: 54 bpm BP: 105 / 60 mmHg Home Lending Officer: GABE Referring MD: Jorge Gabriel MD [employer] Architect: Jorge Gabriel MD Symptoms: R07.89 - Other chest pain Study Quality: Adequate ECG Rhythm: Frequent ventricular premature beats Conclusions: - 1. Normal LV ejection fraction 55-60% with grade 1 diastolic dysfunction 2. Normal cardiac valvular Dopplers 3. Normal RV systolic pressure 4. No gross pericardial effusion Findings Left Ventricle Normal left ventricular size, thickness, and systolic function. The visually estimated ejection fraction is between 55-60%. Spectral Doppler is indicative of an impaired relaxation filling pattern. E/E prime ratio is <8, consistent with normal filling pressures. Right Ventricle Mildly increased right ventricular cavity size. There is normal right ventricular systolic function. Atria Both atria are normal in size. Aortic Valve Normal aortic valve structure and function. There is no aortic valve stenosis. There is no aortic valve regurgitation. Mitral Valve Normal mitral valve structure and function. There is trace mitral valve regurgitation. There is no mitral valve stenosis. Pulmonic Valve The pulmonic valve is likely normal. Tricuspid Valve Normal tricuspid valve structure. There is trace tricuspid valve regurgitation. The right ventricular systolic pressure is normal. The right ventricular systolic pressure is 15 mmHg. Normal right atrial pressure. There is no evidence of pulmonary hypertension. Great Vessels All visible segments of the aorta are normal in size. The pulmonary artery was not well visualized. Venous The inferior vena cava is normal in size and collapses greater than 50% with inspiration. Pericardium/Pleural There is no evidence of pericardial effusion. Prior Study Comparison No prior study available for comparison. Measurements 2D Linear Measurements IVSd: 1.01 0.6-0.9/0.6-1.0 cm LVIDd: 4.57 3.9-5.3/4.2-5.9 cm LVIDd Index: 2.43 2.4-3.2/2.2-3.1 cm/m2 LVIDs: 2.65 2.0-3.6 cm LVPWd: 1.05 0.7-1.1 cm LA Diam: 3.80 2.7-3.8/3.0-4.0 cm LAIDs Index: 2.02 1.5-2.3 cm/m2 LV Mass: 203.83 67-162/88-224 g LV Mass Index: 108.42 43-95/49-115 g/m2 LVOT Diam: 2.10 3.0+(-)1.3 cm 2D Systolic Function EF 4C: 53.20 >55% EF 2C: 58.00 >55% EF BiP: 55.10 >55% Mitral Valve MV Pk E: 0.53 MV PK A: 0.66 MV Decel Time: 333.00 E/A: 0.80 E'Lateral: 6.64 E'Medial: 4.90 E/E' Med: 10.80 E/E' Lat: 8.00 PHT: 97.00 MVA PHT: 2.27 Decel [place]: 1.60 Aortic Valve AoV Pk Venu: 1.30 AoV Mn Venu: 0.92 AoV VTI: 0.28 AoV Pk Grad: 7.00 Aov Mn Grad: 4.00 ANAHI Cont.VTI: 2.38 LVOT LVOT Pk Venu: 0.93 LVOT Mn Venu: 0.61 LVOT VTI: 0.20 LVOT Pk Grad: 3.00 LVOT Mn Grad: 2.00 LVOT Diam: 2.10 LVOT Area: 3.46 Diastolic Function MV Pk E: 0.53 MV Pk A: 0.66 E/A: 0.80 E'Medial: 4.90 E/E' Med: 10.80 E' Laterial: 6.64 E/E' Lat: 8.00 Right Ventricle TAPSE (mm): 22.20 TVS' Venu: 12.30 Tricuspid Valve TR Pk Venu: 1.73 TR Pk Grad: 12.00 RA Press: 3.00 RVSP: 15.00 Great Vessels Aorta Sinus of Valsalva: 3.70 2.0-3.5 cm Ao Asc: 3.20 2.1-3.4 cm Ao Arch: 2.60 Pulmonary Valve PV Pk Venu: 0.75 Peak PV Grad: 2.00 Updated in Other Vendor System with Status of Final Jorge Gabriel MD electronically signed on 01/08/2025 11:17:32 AM with status of Final
--- OUTSIDE RECORDS SUMMARY | 2025-01-07 10:06 | XMS_ITS | Data Portability ---
Author Organization [place] - [facility], Allergy Address [address] [place] [address] Assessment Encounter Date Assessment Date Assessment LastModified by Organization Details LastModified Time 02/26/2024 02/26/2024 CL & Ck both aids working fine . Gave extra wax guards. gave wax guards. CL & CK both aids work fine. recent tests showed couple TIAs just diagnosed - patient was unaware.. 6mo appt made [email or web address] Not available 02/26/2024 15:01:34 09/02/2024 09/02/2024 Gave extra domes and wax guards. CL & CK both aids work fine. annual appt made. Need to do rapid repair before warranty expiration. [email or web address] Not available 09/02/2024 14:54:24 12/21/2024 12/21/2024 transferred settings - will need to link to phone. 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 Wants to be seen on annual basis. Appt made with Tiffany in December. [email or web address] Not available 12/23/2024 14:36:14 Plan of Treatment Reminders Order Date Submit Date Provider Last Modified By Organization Details Last Modified Time Details Appointments MENDEZ Fitting Follow Up (60) 2024 02:00P FLORENTIN DURANT Not available Not available Not available MENDEZ Fitting Follow Up (60) 2025 11:00A M FLORENTIN KEITH Not available Not available Not available Lab None recorded . Referral None recorded . Procedures None recorded . Surgeries None recorded . Imaging None recorded . Medication Orders None recorded . Patient TargetsNo targets recorded. Patient InstructionsNo instructions recorded. Reason for Referral None Reported. Results Created Date Observation Date Name Description Value Unit Range Abnormal Flag Note LastModifiedBy Organization Detail LastModifiedTime 03/31/20 24 11/27/2021 imagi ng/di agnos tic resul t No observ ation record ed. [email or web address] Not Available 19:17:37 03/31/20 24 11/27/2021 imagi ng/di agnos tic resul t No observ ation record ed. [email or web address] Not Available 19:17:38 03/31/20 24 08/15/2022 audio gram No observ ation record ed. [email or web address] Not Available 19:17:58 03/31/20 24 08/21/2023 audio gram No observ ation record ed. [email or web address] Not Available 19:18:00 03/31/20 24 11/27/2021 audio gram No observ ation record ed. [email or web address] Not Available 19:18:05 03/31/20 24 12/13/2021 audio gram No observ ation record ed. [email or web address] Not Available 19:18:06 03/31/20 24 01/14/2022 audio gram No observ ation record ed. [email or web address] Not Available 19:18:09 03/31/20 24 01/23/2023 audio gram No observ ation record ed. [email or web address] Not Available 19:18:10 03/31/20 24 01/24/2022 audio gram No observ ation record ed. [email or web address] Not Available 19:18:12 03/31/20 24 02/07/2022 audio gram No observ ation record ed. [email or web address] Not Available 19:18:15 03/31/20 24 02/21/2022 audio gram No observ ation record ed. [email or web address] Not Available 19:18:16 Result Notes None recorded. Problems Name Problem SNOMED Code Status Onset Date Resolution Date Notes Provider Name and Address Organization Details Recorded Time Bilateral tinnitus 43183206771 02 Active 2021 Tinnitus, bilateral ; Note: Date Diagnosed : 11/27/2021 2:27 PM (H93.13) Not Available [facility] 4 02:17:15 Sensorine ural hearing loss of bilateral ears 135548458 Active 2021 Sensorine ural hearing loss, bilateral ; Note: Date Diagnosed : 11/27/2021 2:14 PM (H90.3) Not Available [facility] 4 02:16:54 Sensorine ural hearing loss 15316235 Active 2021 Sensory hearing loss NOS; Note: Date Diagnosed : 11/27/2021 2:24 PM (H90.5) Not Available [facility] 4 02:18:00 Sensorine ural hearing loss of bilateral ears 151002069 Active 2024 RADHA JACKSON, [address] [address], [place], [address] , [facility] - [facility] 5 12:03:17 Problem Notes None recorded. Medical Equipment None Reported. Allergies Allergen ID Allergen Name Allergen Category Reaction Reaction Severity Criticality Documentation Date Start Date Code Code System Note Provider Name and Address Organization Details Recorded Time 69383 Dairy medicatio n other Not available Not available 12/23/2023 19621 UNK React ion: Unkno wn; Not Available [facility] 4 00:51:30 Medications Name Sig Start Date Stop Date Status Note LastModified by Organization Details LastModified Time atorvastat in 40 mg tablet TAKE 1 TABLET BY MOUTH EVERY DAY FOR 90 DAYS active Not Available Not Available No t Available tizanidine 4 mg tablet TAKE 1 TABLET BY MOUTH EVERY DAY AT BEDTIME NEEDED FOR 15 DAYS active Not Available Not Available No t Available amlodipine 2.5 mg tablet TAKE 1 TABLET BY MOUTH TWICE A DAY active Not Available Not Available No t Available clopidogre l 75 mg tablet TAKE 1 TABLET BY MOUTH EVERY DAY active Not Available Not Available No t Available amlodipine 5 mg tablet TAKE 1 TABLET BY MOUTH EVERY DAY FOR 90 DAYS active Not Available Not Available No t Available brimonidin e 0.2 % eye drops INSTILL 1 DROP INTO BOTH EYES TWICE A DAY active Not Available Not Available No t Available diclofenac sodium 75 mg tablet,del ayed release TAKE 1 TABLET BY MOUTH TWICE A DAY NEEDED FOR 30 DAYS active Not Available Not Available No t Available naproxen 500 mg tablet TAKE 1 TABLET BY MOUTH EVERY 12 HOURS WITH FOOD OR MILK NEEDED FOR 30 DAYS active Not Available Not Available No t Available Laxative (bisacodyl ) 5 mg tablet,del ayed release TAKE 2 TABLETS BY MOUTH RIGHT BEFORE BEGINNING BOWEL PREP. SEE INSTRUCTI ONS PROVIDED BY THE OFFICE active Not Available Not Available No t Available cyclobenza erick 5 mg tablet TAKE 1 TABLET BY MOUTH EVERY 12 HOURS NEEDED FOR 30 DAYS active Not Available Not Available No t Available Combigan 0.2 %-0.5 % eye drops active Medicatio n ID: [id number] Br and Name: Becca Send Method: E-Prescri bed Subs Allowed: subs OK Medica tionGener icName: Combigan Not Available Not Available Not Available diclofenac 1 % topical gel APPLY TO AFFECTED AREA EXTERNALL Y TWICE A DAY 30 DAYS active Not Available Not Available No t Available GaviLyte-G 236 gram-22.74 gram-6.74 gram-5.86 gram oral solution PLEASE SEE ATTACHED FOR DETAILED DIRECTION S active Not Available Not Available No t Available Lumigan 0.01 % eye drops INSTILL 1 DROP INTO BOTH EYES EVERY DAY active Not Available Not Available No t Available Vitals None Recorded Social History None recorded. Functional Status None recorded. Mental Status None recorded. Family History Nothing Reported. Medical History No medical history recorded. Past Encounters Encounter ID Performer Location Encounter Start Date Encounter Closed Date Diagnosis/Indication Diagnosis SNOMED-CT Code Diagnosis ICD10 Code Diagnosis Note [id number] [facility] [place] [address] 02/26/2024 14:32:28 02/29/2024 21:26:40 Sensorineural hearing loss of bilateral ears 608398909 H90.3 [id number] FLORENTIN BILLY [place] [facility] 100 [place] [address] 09/02/2024 14:29:10 09/03/2024 07:19:30 Sensorineural hearing loss of bilateral ears 951941497 H90.3 [id number] FLORENTIN BILLY [facility] [address] [place] [address] 12/21/2024 12:03:01 01/05/2025 15:21:59 Sensorineural hearing loss of bilateral ears 670805239 H90.3 [id number] FLORENTIN BILLY [place] - [place] 100 [facility],[place] [place] [address] 12/23/2024 14:15:34 12/24/2024 09:54:09 Sensorineural hearing loss of bilateral ears 010259260 H90.3 Health Concerns Section Related Observation LastModified by Organization Detai ls LastModified Time None Recorded Concern Status LastModified by Organization Details LastModified Time None Recorded Advance Directives Directive None Recorded Payers Insurance Date Sequence Insurance Name Policy Number Policy Busch Covered Member ID Busch Member ID Guarantor Name 12/23/2024 1 [place]IC[place] [employer] SERVICES Selvin Luevano [id number] 6 Selvin Luevano Notes Date Note Type Note Provider Name and Address Organization Details Recorded Time 02/26/2024 text/html Known bilateral SNHL. Currently wearing Widex Moment 330 mRIC R dispensed 01/24/2022 FLORENTIN BILLY [address], [address], [facility] 02/26/2024 15:07:54 09/02/2024 text/html Patient has reimburseable [employer] $1700 benefit. Having difficulty hearing in everyday situations. Currently wearing Widex 330 mRIC R in [place] #2 R/L M receivers small double vent domes dispensed 01/24/2022. FLORENTIN BILLY 100 [facility],[address], [address], [facility] 09/02/2024 15:06:31 12/21/2024 text/html Patient has reimbursable [employer] $1700 benefit. Having difficulty hearing in everyday situations. Currently wearing Widex 330 mRIC R in [place] #2 R/L M receivers small double vent domes dispensed 01/24/2022. Set to #4 adaptation for better clarity last time. Iphone - set to never stream. not technical type julio césar and doesn't want to get confused. Annual appt made. Need to do rapid repair before warranty expiration. Patient dropped off left aid - - not chest pain coordinator - called patient and told him will will do rapid repair for both aids and teacher physically impaired now prior to warranty expiration RADHA JACKSON, AUD 100 [facility],[address] [address], [place], [address], [place] - [facility] 12/23/2024 15:48:25 12/23/2024 text/html Patient has reimbursable [facility] $1700 benefit. Having difficulty hearing in everyday situations. Currently wearing WideConsert 330 mRIC R in [place] #2 R/L M receivers small double vent domes dispensed 01/24/2022. Gave extra domes and wax guards. CL & CK both aids work fine. annual appt made. Need to do rapid repair before warranty expiration. RADHA JACKSON, AUD 100 [facility],[address] [address], [place], [address], [facility] 12/23/2024 15:46:42
== END ==
LOC: HO.CARD 09:42
PROVIDERS: Visit Provider Internal Medicine Cardiovascular Disease
DX: R07.89 Other chest pain (principal); I49.3 Ventricular premature depolarization
CPT/HCPCS: 93242; 93306

== ENCOUNTER → 2025-01-07 09:45 | Outpatient (BNV) | payer MEDICARE, OTHER, SELFPAY | PROVIDERS: Visit Provider Internal Medicine Cardiovascular Disease | DX: I51.89 Other ill-defined heart diseases (principal); R94.31 Abnormal electrocardiogram [ECG] [EKG] | CPT/HCPCS: 93306 ==

== ENCOUNTER → 2025-01-19 08:24 | Outpatient (REF) | payer MEDICARE, OTHER, SELFPAY ==
--- NOTE | 2025-01-19 08:27 | CA_ITS ---
Acquisition Time: 2025-01-19 09:16:22 Total Exercise Time: 00:05:45 Test Indications: CP PVC'S HTN Medications: AMLODIPINE ATORVASTATIN CLOPIDOGREL EYE DROPS Protocol: BAYLEE Max HR: 166 BPM 111% of Pred: 149 BPM Max BP: 178/70 mmHG Max Work Load: 7.0 METS Exercise stress test with exercise 5 mins 45 secs of Baylee Protocol, achieving 95% MPHR, with reports of mild SOB, no chest pain, with frequent PVCs, one ventricular couplet, with normotensive response to exercise. Without EKG changes meeting criteria for ischemia. In recovery, breathing returned to baseline. Echo images obtained by Capptain at rest and post peak exercise. Definity contrast utilized. Test reviewed with Dr. Gabriel. Referred By: Jorge Gabriel Electronically Signed By: Johnny Ortiz
--- OUTSIDE RECORDS SUMMARY | 2025-01-19 08:33 | XMS_ITS | Data Portability ---
Author Organization [place] - [facility], Allergy Address [address] [place] [phone] Assessment Encounter Date Assessment Date Assessment LastModified by Organization Details LastModified Time 02/26/2024 02/26/2024 CL & Ck both aids working fine . Gave extra wax guards. gave wax guards. CL & CK both aids work fine. recent tests showed couple TIAs just diagnosed - patient was unaware.. 6mo appt made [email or web address] Not available 02/26/2024 15:01:34 09/02/2024 09/02/2024 Gave extra domes and wax guards. CL & CK both aids work fine. annual appt made. Need to do rapid repair before warranty expiration. [email or web address] Not available 09/02/2024 14:54:24 12/21/2024 12/21/2024 transferred settings - will need to link to phone. 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 Wants to be seen on annual basis. Appt made with Tiffany in December. [email or web address] Not available 12/23/2024 14:36:14 Plan of Treatment [...] Address Organization Details Recorded Time Bilateral tinnitus 01818652476 02 Active 2021 Tinnitus, bilateral ; Note: Date Diagnosed : 11/27/2021 2:27 PM (H93.13) Not Available [facility] 4 02:17:15 Sensorine ural hearing loss of bilateral ears 692865821 Active 2021 Sensorine ural hearing loss, bilateral ; Note: Date Diagnosed : 11/27/2021 2:14 PM (H90.3) Not Available [facility] 4 02:16:54 Sensorine ural hearing loss 77123340 Active 2021 Sensory hearing loss NOS; Note: Date Diagnosed : 11/27/2021 2:24 PM (H90.5) Not Available [facility] 4 02:18:00 Sensorine ural hearing loss of bilateral ears 648885574 Active 2024 RADHA JACKSON, [address] [address], [place], [address] , [facility] - [facility] 5 12:03:17 Problem Notes None recorded. Medical Equipment None Reported. Allergies Allergen ID Allergen Name Allergen Category Reaction Reaction Severity Criticality Documentation Date Start Date Code Code System Note Provider Name and Address Organization Details Recorded Time 61657 Dairy medicatio n other Not available Not available 12/23/2023 95829 UNK React ion: Unkno wn; Not Available [facility] 4 00:51:30 Medications Name Sig Start Date [...] % eye drops active Medicatio n ID: [id number] Br and Name: Becca Send Method: E-Prescri [...] [id number] [facility]ILL[facility] [place] [address] 02/26/2024 14:32:28 02/29/2024 21:26:40 Sensorineural hearing loss of bilateral ears 155243431 H90.3 [id number] FLORENTIN BILLY [place] 100 [facility] ite 100 [place] [address] 09/02/2024 14:29:10 09/03/2024 07:19:30 Sensorineural hearing loss of bilateral ears 010980068 H90.3 [id number] FLORENTIN BILLY [facility] [address] [place] [address] 12/21/2024 12:03:01 01/05/2025 15:21:59 Sensorineural hearing loss of bilateral ears 001645631 H90.3 [id number] FLORENTIN BILLY [place] - [place] 100 [facility],[address] [place] [address] 12/23/2024 14:15:34 12/24/2024 09:54:09 Sensorineural hearing loss of bilateral ears 377741566 H90.3 Health Concerns Section Related Observation LastModified by Organization Detai ls LastModified Time None Recorded Concern Status LastModified by Organization Details LastModified Time None Recorded Advance Directives Directive None Recorded Payers Insurance Date Sequence Insurance Name Policy Number Policy Busch Covered Member ID Busch Member ID Guarantor Name 12/23/2024 1 [place]IC[place] [employer] Selvin Luevano [id number] 6 Selvin Luevano Notes Date Note Type Note Provider Name and Address Organization Details Recorded Time 02/26/2024 text/html Known bilateral SNHL. Currently wearing Widex Moment 330 mRIC R dispensed 01/24/2022 FLORENTIN BILLY [address], [address], [facility] 02/26/2024 15:07:54 09/02/2024 text/html Patient has reimburseable [employer] $1700 benefit. Having difficulty hearing in everyday situations. Currently wearing Widex 330 mRIC R in [place] #2 R/L M receivers small double vent domes dispensed 01/24/2022. 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 Having difficulty hearing in everyday situations. Currently wearing [email or web address] 330 mRIC R in [place] #2 R/L M receivers small double vent domes dispensed 01/24/2022. Gave extra domes and wax guards. CL & CK both aids work fine. annual appt made. Need to do rapid repair before warranty expiration. RADHA JACKSON, AUD 100 [facility],[address] [address], [place], [address], [facility] 12/23/2024 15:46:42
== END ==
LOC: HO.CARD 08:24
PROVIDERS: Visit Provider Internal Medicine Cardiovascular Disease
DX: R07.89 Other chest pain (principal)
CPT/HCPCS: 93350; Q9957

== ENCOUNTER → 2025-01-19 08:27 | Outpatient (BNV) | payer MEDICARE, OTHER, SELFPAY | DX: R07.9 Chest pain, unspecified (principal); R94.31 Abnormal electrocardiogram [ECG] [EKG]; R06.02 Shortness of breath; I49.3 Ventricular premature depolarization | CPT/HCPCS: 93016; 93018; 93350; 93352 ==

== ENCOUNTER 2025-01-27 07:44 | Outpatient (AMB) | payer MEDICARE, OTHER, SELFPAY ==
--- OUTSIDE RECORDS SUMMARY | 2025-01-27 07:47 | XMS_ITS | Data Portability ---
Author Organization [place] - [facility], Allergy Address [address] [place] [address] Assessment Encounter Date Assessment Date Assessment LastModified by Organization Details LastModified Time 02/26/2024 02/26/2024 CL & Ck both aids working fine . Gave extra wax guards. gave wax guards. CL & CK both aids work fine. recent tests showed couple TIAs just diagnosed - patient was unaware.. 6mo appt made [email or web address] Not available 02/26/2024 15:01:34 09/02/2024 09/02/2024 Gave extra domes and wax guards. CL & CK both aids work fine. annual appt made. Need to do rapid repair before warranty expiration. [email or web address] Not available 09/02/2024 14:54:24 12/21/2024 12/21/2024 transferred settings - will need to link to phone. 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 Wants to be seen on annual basis. Appt made with Tiffany in December. [email or web address] Not available 12/23/2024 14:36:14 Plan of Treatment [...] Address Organization Details Recorded Time Bilateral tinnitus 95684550830 02 Active 2021 Tinnitus, bilateral ; Note: Date Diagnosed : 11/27/2021 2:27 PM (H93.13) Not Available [facility] 4 02:17:15 Sensorine ural hearing loss of bilateral ears 450249000 Active 2021 Sensorine ural hearing loss, bilateral ; Note: Date Diagnosed : 11/27/2021 2:14 PM (H90.3) Not Available [facility] 4 02:16:54 Sensorine ural hearing loss 43326326 Active 2021 Sensory hearing loss NOS; Note: Date Diagnosed : 11/27/2021 2:24 PM (H90.5) Not Available [facility] 4 02:18:00 Sensorine ural hearing loss of bilateral ears 399510637 Active 2024 RADHA JACKSON, [address] [address], [place], [address] , [facility] - [facility] 5 12:03:17 Problem Notes None recorded. Medical Equipment None Reported. Allergies Allergen ID Allergen Name Allergen Category Reaction Reaction Severity Criticality Documentation Date Start Date Code Code System Note Provider Name and Address Organization Details Recorded Time 93739 Dairy medicatio n other Not available Not available 12/23/2023 52956 UNK React ion: Unkno wn; Not Available [facility] 4 00:51:30 Medications Name Sig Start Date [...] % eye drops active Medicatio n ID: [id number] Br and Name: Becca Send Method: E-Prescri [...] [id number] FL[facility]ILLY [facility] [place] [address] 02/26/2024 14:32:28 02/29/2024 21:26:40 Sensorineural hearing loss of bilateral ears 419041076 H90.3 [id number] FLORENTIN BILLY [place] 100 [facility] it[address] 100 [place] [address] 09/02/2024 14:29:10 09/03/2024 07:19:30 Sensorineural hearing loss of bilateral ears 980326940 H90.3 [id number] FLORENTIN BILLY [facility] 100 [place] [address] 12/21/2024 12:03:01 01/05/2025 15:21:59 Sensorineural hearing loss of bilateral ears 798246692 H90.3 [id number] FLORENTIN BILLY [place] - [place] 100 [facility],[place] [address] [place] [address] 12/23/2024 14:15:34 12/24/2024 09:54:09 Sensorineural hearing loss of bilateral ears 155178497 H90.3 Health Concerns Section Related Observation LastModified by Organization Detai ls LastModified Time None Recorded Concern Status LastModified by Organization Details LastModified Time None Recorded Advance Directives Directive None Recorded Payers Insurance Date Sequence Insurance Name Policy Number Policy Busch Covered Member ID Busch Member ID Guarantor Name 12/23/2024 1 [place]IC[place] B-[place] [employer] SERVICES Selvin Luevano [id number] 6 Selvin Luevano Notes Date Note Type Note Provider Name and Address Organization Details Recorded Time 02/26/2024 text/html Known bilateral SNHL. Currently wearing Widex Moment 330 mRIC R dispensed 01/24/2022 FLORENTIN BILLY [address], [address], [facility] 02/26/2024 15:07:54 09/02/2024 text/html Patient has reimburseable [employer] $1700 benefit. Having difficulty hearing in everyday situations. Currently wearing Widex 330 mRIC R in [place] #2 R/L M receivers small double vent domes dispensed 01/24/2022. 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 Having difficulty hearing in everyday situations. Currently wearing WideCreativeWorx 330 mRIC R in silver [place] #2 R/L M receivers small double vent domes dispensed 01/24/2022. Gave extra domes and wax guards. CL & CK both aids work fine. annual appt made. Need to do rapid repair before warranty expiration. RADHA JACKSON, AUD 100 [facility],[address] [address], [place], [address], [facility] 12/23/2024 15:46:42
--- NOTE | 2025-01-27 08:15 | A.OFFVIS_ITS ---
Vital Signs 01/27/25 08:18 Height 5 ft 8 in Weight 171 lb 15.369 oz BMI 26.1 BP 102/62 Blood Pressure Location Lt brachial Position Sitting Pulse 54 Pulse Source Pulse Oximeter Intake Visit Reasons: r/s 12/30 6 wks f/u stress echo/holter Intake Note: 6 wk f/up-stress echo and holter Managed Care Manager Required: No Accompanied by: Self / Same As Patient Allergies No Known Allergies Allergy (Verified 04/11/21 08:05) Medication List - Last Reconciled 01/27/25 by Lidia Kenney, CARYN-C amlodipine 2.5 mg PO BID atorvastatin 40 mg PO DAILY bimatoprost 0.01% (Lumigan) 1 drp ophthalmic (eye) QPM brimonidine-timolol 0.2-0.5 % (Combigan) 1 drp ophthalmic (eye) BID clopidogrel 75 mg PO DAILY metoprolol succinate ER 25 mg PO DAILY tizanidine 4 mg PO BEDTIME PRN HPI HPI r/s 12/30 6 wks f/u stress echo/holter: Details: Selvin is a 69-year-old male presenting with follow-up after recent nuclear stress test and Holter monitor evaluation. He has a history of CVA, Prior ILR placement without finding of Afib, hypertension, chest discomfort, and heart palpitations. The nuclear stress test on 01/19/2025 showed exercise tolerance of nearly 6 minutes with mild shortness of breath and frequent PVCs, but no ischemia. The nuclear scan showed no ischemia or infarct. Echocardiogram on 01/07/2025 indicated EF 55-60%, grade 1 diastolic dysfunction, normal valves. Holter monitor from 01/07/2025 showed sinus rhythm, average HR 73 bpm, frequent PVCs, accelerated idioventricular rhythm. Patient reports dizziness and lightheadedness when bending over, occurring frequently over the past week and a half. BP recorded at 102/62 mmHg, HR 54 bpm during visit. His chest discomfort is random, rare in occurence and nonexertional. Current medications include amlodipine, atorvastatin, clopidogrel, and metoprolol. [facility] Medical History Status post placement of implantable loop recorder HTN (hypertension) Family History Mother Congestive heart failure (CHF) Father Stroke Social History Alcohol intake: current Patient Tobacco Use Status: Never used Tobacco Review of Systems Const All systems reviewed & are unremarkable except as noted in HPI and below Denies chills, Denies fatigue, Denies fever(s), Denies frequent falls, Denies weakness, Denies weight gain and Denies weight loss ENT Denies dizziness Card Denies chest pain, Denies leg edema, Denies lightheadedness, Denies palpitations, Denies dyspnea and Denies dyspnea on exertion Resp Denies cough, Denies dyspnea and Denies dyspnea on exertion GI Denies hematochezia Musc Denies abnormal gait, Denies muscle weakness, Denies numbness, Denies radiating pain into limb and Denies tingling Neuro Denies abnormal gait, Denies dizziness, Denies frequent falls, Denies numbness, Denies tingling and Denies weakness Endo Denies fatigue and Denies palpitations Physical Exam Vital Signs: Last Vital Signs Pulse 54 01/27/25 08:18 BP 102/62 01/27/25 08:18 BMI result Body Mass Index 26.1 Const General: cooperative, healthy appearing, comfortable and no acute distress Orientation/consciousness: patient oriented x3 Neck Neck: Yes normal visual inspection Resp Effort & Inspection: normal respiratory effort Auscultation: clear to auscultation bilaterally, no crackles, no rales, no rhonchi and no wheezes Cardio Jugular venous distension: no JVD Rate: regular rate Rhythm: regular rhythm Heart sounds: S1 normal heart sound present, S2 normal heart sound present, no gallops, no murmurs and no rubs Peripheral pulses: Peripheral pulses 2+ throughout Neuro General: patient oriented x3 Extrem General: Yes normal to inspection, No no pedal edema and No calf tenderness Psych Appearance: grossly normal Mental Status: mental status grossly normal Speech and movement: Normal speech and movement present Assessment & Plan Assessment & Plan (1) Atypical chest pain: Code(s): R07.89 - Other chest pain Category: Medical Plan: Reports of atypical sounding chest discomfort. Cardiac risks of hypertension, hyperlipidemia and age. Nuclear stress test shows no evidence of ischemia. Echocardiogram shows normal EF and no regional wall motion abnormalities. Signs and symptoms of angina reviewed. Continue with risk factor modification. (2) PVCs (premature ventricular contractions): Code(s): I49.3 - Ventricular premature depolarization Category: Medical Plan: Frequent PVCs noted on Holter monitor and during exercise portion of stress test. His symptom of palpitations correlated with PVCs. Ejection fraction normal. He was started on metoprolol 01/24/2025 to help reduce the frequency of PVCs. Diagnosis of PVCs reviewed with him. (3) HTN (hypertension): Code(s): I10 - Essential (primary) hypertension Category: Medical Plan: Blood pressure goal less than 130/80. Blood pressure low today. He is reporting positional lightheadedness. With the addition of metoprolol his blood pressure is lower than prior. Will reduce amlodipine down to once daily. He will continue with home blood pressure monitoring and notify this office if he continues to run low, especially if systolic less than 100. (4) Embolic cerebral infarction: Code(s): I63.40 - Cerebral infarction due to embolism of unspecified cerebral artery Category: Medical Plan: Prior history of CVA, embolic. Long-term cardiac monitoring did not show atrial fibrillation. He remains on Plavix 75 mg daily. No recurrent neurological melanie nts. Plan I discussed with the patient the results of the nuclear stress test, echocardiogram and Holter monitor, explaining that there was no evidence of ischemia or infarct. We reviewed the presence of PVCs and the role of metoprolol in managing these symptoms. I advised reducing amlodipine to once daily to address low blood pressure and emphasized the importance of hydration. The patient was instructed to monitor blood pressure and report any significant changes. A follow-up appointment was scheduled in a couple of months to evaluate the effectiveness of the treatment plan. Patient Instructions: - Take metoprolol as prescribed to manage heart palpitations. - Reduce amlodipine to once daily to prevent low blood pressure. - Monitor blood pressure regularly and report any significant changes. - Stay hydrated, especially during physical activity, to prevent dizziness. - Follow up in 3 months for reassessment. Patient was informed and verbally consented to the use of an ambient scribe for clinic note documentation during this visit. Visit time spent on chart review, interview, assessment, orders, documentation. Coding Level of Care Code Est Pt Level 4 (02557) Complex EM visit Add On G2211 Diagnoses Atypical chest pain R07.89 PVCs (premature ventricular contractions) I49.3 HTN (hypertension) I10 Embolic cerebral infarction I63.40 Time Spent (min) 28
[2025-01-27 08:18] VITALS: BP 102/62; PULSE 54; BMI 26.1
== END 2025-01-27 08:41 | disposition home or self-care (01) ==
LOC: HO.HCS 07:45
PROVIDERS: Visit Provider Nurse Practitioner Family
DX: R07.89 Other chest pain (principal); I49.3 Ventricular premature depolarization; I10 Essential (primary) hypertension; I63.40 Cerebral infarction due to embolism of unspecified cerebral artery
CPT/HCPCS: 99214; G2211

== ENCOUNTER → 2025-01-27 07:44 | Outpatient (BNVA) | payer MEDICARE, OTHER, SELFPAY | PROVIDERS: Visit Provider Nurse Practitioner Family | DX: R07.89 Other chest pain (principal); I49.3 Ventricular premature depolarization; I63.40 Cerebral infarction due to embolism of unspecified cerebral artery; I10 Essential (primary) hypertension | CPT/HCPCS: 99212 ==

== ENCOUNTER 2025-04-26 08:17 | Outpatient (AMB) | payer MEDICARE, OTHER, SELFPAY ==
--- OUTSIDE RECORDS SUMMARY | 2025-02-16 09:15 | XMS_ITS ---
Author Organization [facility] Address [address] [place] [address] Care Team Providers Care Chocolate Finisher Operator Name Role Phone MILIND WHITTEN Unavailable [phone] ROCIO CARVALHO Unavailable [phone] Results Component Value Reference Range Notes EKG Reviewed date:02/16/2025 01:46:27 PM Interpretation: Performing Lab: Notes/Report: ECGDiastolicBP 0 ECGHr 50 ECGPRInterval 220 ECGPWaveAxis 33 ECGQRSDuration 88 ECGQrsWaveAxis 22 ECGQTcInterval 435 ECGQTInterval 452 ECGSystolicBP 0 ECGTWaveAxis 52 RR_DiastolicBP 0 RR_MaxRRInterval 0 RR_MeanHR 0 RR_MeanRRInterval 0 RR_MinRRInterval 0 RR_NumBeats 0 RR_NumNormalBeats 0 RR_SystolicBP 0 REASON FOR VISIT Patient was in office for Nurse visit for Bp check and EKG. Task sent to provider for review Medications Medication SIG (Take, Route, Frequency, Duration) Notes Start Date End Date Status Loratadine 10 MG 1 tablet Orally Once a day as needed Active Lumigan 0.01 % 1 drop into affected eye in the evening Ophthalmic Once a day Active Flonase Allergy Relief 50 MCG/ACT 1 spray in each nostril Nasally Once a day as needed Active Clopidogrel Bisulfate 75 MG 1 tablet Orally Once a day; Duration: 90 days Active Combigan 0.2-0.5 % 1 drop into affected eye Ophthalmic Twice a day Active Tamsulosin HCl 0.4 MG 1 capsule Orally O nce a day Active Vitamin B12 100 MCG as directed Orally Active Atorvastatin Calcium 40 MG TAKE 1 TABLET BY MOUTH EVERY DAY FOR 90 DAYS; Duration: 90 Active amLODIPine Besylate 5 MG 1 tablet Orally Once a day; Duration: 90 days Active Encounters Encounter Location Date Provider Diagnosis [facility] [address] [place] [address] 02/16/2025 ROCIO CARVALHO Palpitations R00.2 a nd Screening for cardiovascular condition Z13.6 Assessments Encounter Date Diagnosis (ICD Code) Assessment Notes Treatment Notes Treatment Clinical Notes Section Notes 02/16/2025 Palpitations (ICD-10 - R00.2) 02/16/2025 Screening for cardiovascular condition (ICD-10 - Z13.6) Plan Of Treatment Next Appt Details Provider Name:MILIND WHITTEN, 11:00:00 AM, [address], [place], [address], Progress Notes * LICHA ACKERMAN ADOB: 4 (69 yo M)Acc No.[id number]:02/16/2025 Progress Note Patient: LICHA DREW Provider: Rosa Carvalho MD :1955 A ge:69 Y S ex:Male Date:02/16/2025 Address: [address], [facility] Subjective: * Chief Complaints: * 1 . Patient was in office for Nurse visit for Bp check and EKG. Task sent to provider for review. * Medical History: * Medications: T aking Tamsulosin HCl 0.4 MG Capsule 1 capsule Orally Once a day , Taking Vitamin B12 100 MCG Tablet as directed Orally , Taking Loratadine 10 MG Tablet 1 tablet Orally Once a day , Notes to Pharmacist: as needed, Taking Flonase Allergy Relief 50 MCG/ACT Suspension 1 spray in each nostril Nasally Once a day , Notes to Pharmacist: as needed, Taking Lumigan 0.01 % Solution 1 drop into affected eye in the evening Ophthalmic Once a day , Taking Combigan 0.2-0.5 % Solution 1 drop into affected eye Ophthalmic Twice a day , Taking Clopidogrel Bisulfate 75 MG Tablet 1 tablet Orally Once a day , Taking amLODIPine Besylate 5 MG Tablet 1 tablet Orally Once a day , Taking Atorvastatin Calcium 40 MG Tablet TAKE 1 TABLET BY MOUTH EVERY DAY FOR 90 DAYS Objective: * Vitals: Assessment: * Assessment: 1. P alpitations - R00.2 2 . S creening for cardiovascular condition - Z13.6 Plan: * Treatment: * Procedure Codes: 9 3000 -ELECTROCARDIOGRAM, COMPLETE, Modifiers: 59 Care Plan: * Problems: * Images: Billing Information: * Visit Code: * Procedure Codes: 62598 -ELECTROCARDIOGRAM, COMPLETE. Modifiers: 59 Care Plan Details* * Electronic signature of MARINE CARVALHO MD on 04/26/2025 at 09:36 AM EDT Sign off status: Pending * Provider: Rosa Carvalho MD Date: 0 02/16/2025 Generated for Jess butler/Deion/Destinee on: 0 04/26/2025 09:36 AM EDT
[2025-04-26 08:25] VITALS: BP 110/62; PULSE 62; BMI 26.3
--- NOTE | 2025-04-26 08:25 | A.OFFVIS_ITS ---
Vital Signs 04/26/25 08:25 Height 5 ft 8 in Weight 172 lb 13.478 oz BMI 26.3 BP 110/62 Blood Pressure Location Rt brachial Position Sitting Pulse 62 Pulse Source Pulse Oximeter Intake Visit Reasons: 3m follow up Shoemaker Custom Required: No Allergies No Known Allergies Allergy (Verified 04/26/25 08:28) Medication List - Last Reconciled 04/26/25 by Lidia Kenney, [employer] ADVISOR-C amlodipine 2.5 mg PO DAILY atorvastatin 40 mg PO DAILY bimatoprost 0.01% (Lumigan) 1 drp ophthalmic (eye) QPM brimonidine-timolol 0.2-0.5 % (Combigan) 1 drp ophthalmic (eye) BID clopidogrel 75 mg PO DAILY metoprolol succinate ER 25 mg PO DAILY tizanidine 4 mg PO BEDTIME PRN HPI HPI 3m follow up: Details: Selvin is a 69-year-old male with past medical history of hypertension, CVA with prior ILR placement without finding of atrial fibrillation, atypical chest discomfort who presents for follow-up. Today he reports that he does have issues with lightheadedness at times especially with position changes and bending over. He will record that his blood pressure is on the low side when he feels this way. His low blood pressure that he shows me is 96/56. Other times he notices a mild headache and will check his blood pressure and it has been as high as 179/103. Most of the time his blood pressure is in the middle range with systolic ranging 100-140. He takes his metoprolol in the morning and amlodipine in the evening. He maintains good hydration with water and ice tea. He is not getting any chest discomfort at rest or with activity. His breathing is comfortable, no PND, orthopnea or edema. No presyncope, syncope, falls. He does light physical activity. He checks his blood pressure once daily. He has upcoming PCP visit. [facility] Medical History Status post placement of implantable loop recorder HTN (hypertension) Family History Mother Congestive heart failure (CHF) Father Stroke Social History Alcohol intake: current Patient Tobacco Use Status: Never used Tobacco Review of Systems Const All systems reviewed & are unremarkable except as noted in HPI and below ENT Reports dizziness Card Denies chest pain, Denies chest pain at rest, Denies chest pain with activity, Denies rapid heart rate, Denies pedal edema, Denies edema, Denies leg edema, Reports lightheadedness, Denies palpitations, Denies dyspnea, Denies dyspnea on exertion and Denies orthopnea Resp Denies cough, Denies dyspnea and Denies dyspnea on exertion GI Denies hematochezia and Denies change in stool character Musc Denies abnormal gait, Denies limited range of motion, Denies muscle cramps, Denies muscle weakness, Denies numbness, Denies radiating pain into limb, Denies stiffness and Denies tingling Neuro Denies abnormal gait, Reports dizziness, Denies numbness and Denies tingling Endo Denies palpitations Physical Exam Vital Signs: Last Vital Signs Pulse 62 04/26/25 08:25 BP 110/62 04/26/25 08:25 BMI result Body Mass Index 26.3 Const General: cooperative, healthy appearing, comfortable and no acute distress Orientation/consciousness: patient oriented x3 Neck Neck: Yes normal visual inspection Resp Effort & Inspection: normal respiratory effort Auscultation: clear to auscultation bilaterally, no crackles, no rales, no rhonchi and no wheezes Cardio Jugular venous distension: no JVD Rate: regular rate Rhythm: regular rhythm Heart sounds: S1 normal heart sound present, S2 normal heart sound present, no gallops, no murmurs and no rubs Neuro General: patient oriented x3 Extrem General: Yes normal to inspection, No no pedal edema and No calf tenderness Psych Appearance: grossly normal Mental Status: mental status grossly normal Speech and movement: Normal speech and movement present Assessment & Plan Assessment & Plan (1) Atypical chest pain: Code(s): R07.89 - Other chest pain Category: Medical Plan: Prior reports of atypical sounding chest discomfort. Cardiac risks of hypertension, hyperlipidemia and age. Nuclear stress test 10/07/2022 shows no evidence of ischemia or infarct. Echocardiogram 01/07/2025 shows normal EF 55- 60%, grade 1 diastolic dysfunction. Stress echocardiogram done 01/19/2025 with exercise 5 minutes 45 seconds with no anginal symptoms, frequent PVCs, no EKG or echo evidence changes of ischemia. Test results reviewed with him. Signs and symptoms of angina reviewed. Continue with risk factor modification. (2) PVCs (premature ventricular contractions): Code(s): I49.3 - Ventricular premature depolarization Category: Medical Plan: Frequent PVCs noted on Holter monitor done 01/07/2025 and during exercise portion of stress test. His symptom of palpitations correlated with PVCs. Ejection fraction normal. He was started on metoprolol 01/24/2025 to help reduce the frequency of PVCs. Diagnosis of PVCs reviewed with him. Currently no reports of heart palpitations. (3) HTN (hypertension): Code(s): I10 - Essential (primary) hypertension Category: Medical Plan: Blood pressure goal less than 130/80. Blood pressure 110/62 today. Recheck done by me 118/68, recheck using his own cuff 130/80. He is reporting labile blood pressures at times at home. Informed him that if his blood pressure is low he is to increase his fluid intake. If his blood pressure is high he has to sit and relaxes body before recheck. Continue meds without change. He has upcoming follow-up with his PCP and this can be re-evaluated. (4) Embolic cerebral infarction: Code(s): I63.40 - Cerebral infarction due to embolism of unspecified cerebral artery Category: Medical Plan: Prior history of CVA, embolic. Long-term cardiac monitoring did not show atrial fibrillation. He remains on Plavix 75 mg daily. No recurrent neurological events. Plan I discussed with the patient the management of labile blood pressure, emphasizing the importance of medication adherence and lifestyle modifications such as hydration and salt intake. We reviewed the potential need for an extra dose of amlodipine if blood pressure remains high, with caution for subsequent low readings. The patient was advised to continue follow-up with their primary care physician and to return for cardiology follow-up in six months or sooner if needed. Patient Instructions: - Continue taking amlodipine and metoprolol as prescribed. - Monitor blood pressure at home regularly. - Maintain adequate hydration and avoid excessive salt intake. - Consider taking an extra half dose of amlodipine if blood pressure is high, but be cautious of low readings the next day. - Follow up with primary care physician and return for cardiology follow-up in six months or sooner if needed. Patient was informed and verbally consented to the use of an ambient scribe for clinic note documentation during this visit. Visit time spent on chart review, interview, assessment, orders, documentation. Coding Level of Care Code Est Pt Level 4 (10422) Complex EM visit Add On G2211 Diagnoses Atypical chest pain R07.89 PVCs (premature ventricular contractions) I49.3 HTN (hypertension) I10 Embolic cerebral infarction I63.40 Time Spent (min) 32
--- OUTSIDE RECORDS SUMMARY | 2025-04-26 09:36 | XMS_ITS ---
Author Name [facility] Organization Unknown Encounters Encounter Type Encounter Reason Primary Diagnosis Location Date Ambulatory [facility] 06/08/2024 Care Team Organization Name Specialty Phone Email Start Date End Da te [facility]16[facility]
--- OUTSIDE RECORDS SUMMARY | 2025-04-26 09:36 | XMS_ITS | Clinical Summary ---
Author Organization [facility] Address [address] [place] [address] Phone Care Team Providers Care Physician Industrial Name Role Phone Sravani Carvalho MD Primary Care Provider [phone] Allergies Active Allergy Reactions Criticality Noted Date [...] mouth 1 (one) time each day. Active Surgical History Surgery Date Site/Laterality Comments HERNIA REPAIR PROCEDURE: REPAIR INGUINAL HERNIA; COMMENT: bilateral COLONOSCOPY 2013 PROCEDURE: MI COLONOSCOPY STOMA DX INCLUDING COLLJ SPEC SPX; COMMENT: Dulce. Normal COLONOSCOPY 2015 PROCEDURE: MI COLONOSCOPY STOMA DX INCLUDING COLLJ SPEC SPX; COMMENT: Christ. Diverticulosis APPENDECTOMY PROCEDURE: MI APPENDECTOMY Medical History Medical History Date Comments Serrated adenoma of colon 04/28/2014 DX:Ser rated adenoma of colon Hyperlipidemia Hypertension Stroke (cerebrum) (CMS/HCC V24, CMS/[facility] V28) Family History Medical History Relation Name [...] 56 08/24/2024 2:55 PM EST Temperature 36.4 C (97.6 F) 08/24/2024 1:13 PM EST Respiratory Rate 16 08/24/2024 2:55 PM EST [...] Screen 07/20/2022 Cholesterol Screening (Lipid Panel) 07/20/2022 Hepatitis C Screening 07/20/2022 Social Influencers of Health Screening 07/20/2022 Medicare Annual Wellness Visit 05/27/2023 05/27/2022 Depression Screening 08/11/2024 Hypertension/CHF/CAD Annual BMP Blood Test 10/20/2024 COVID-19 Vaccine ( - season) 2025 11/03/2020, 10/06/2020 Influenza Vaccine (#1) 2025 3, 05/27/2022, 05/22/2021, Additional history exists Falls Risk [...] Procedure Name Priority Date/Time Associated Diagnosis Comments COLONOSCOPY Routine 08/24/2024 2:22 PM EST Hx of colonic polyps from Last 3 Months or Most Recently Relevant to Health Maintenance Results * COLONOSCOPY Anesthesia - MAC; [facility] ENDOSCOPY (08/24/2024 2:22 PM EST) Anatomical Region Laterality Modality Other 08/24/2024 1:59 PM EST Impressions 08/24/2024 2:24 PM EST - One 6 mm polyp at the splenic flexure, removed with a cold snare. Resected and retrieved. - The examination was otherwise normal on direct and retroflexion views. Recommendation: - Await pathology results. - Repeat colonoscopy in 5 years for surveillance. Narrative 08/24/2024 2:24 PM EST [facility] Patient Name: Selvin Luevano Procedure Date: 08/24/2024 1:59 PM Date of : 1955 Age: 68 Room: ROOM 14 Gender: Male Note Status: Finalized Attending MD: Harjeet Cruz MD, Procedure Date No Time: 08/24/2024 Procedure: Colonoscopy Indications: High risk colon cancer surveillance: Personal history of colonic polyps Providers: Harjeet Cruz MD Referring MD: Reagan Cardona MD Medicines: Propofol per Anesthesia Complications: No immediate complications. Estimated Blood Loss: Estimated blood loss: none. Procedure: After I obtained informed consent, the scope was passed under direct vision. Throughout the procedure, the patient's blood pressure, pulse, and oxygen saturations were monitored continuously.The Olympus Pediatric Colonoscope was introduced through the anus and advanced to the cecum, identified by appendiceal orifice and ileocecal valve. The colonoscopy was performed without difficulty. The patient tolerated the procedure well. The quality of the bowel preparation was good. Findings: The perianal and digital rectal examinations were normal. A 6 mm polyp was found in the splenic flexure. The polyp was sessile. The polyp was removed with a cold snare. Resection and retrieval were complete. The exam was otherwise without abnormality on direct and retroflexion views. Harjeet Cruz MD 08/24/2024 2:24:28 PM This report has been signed electronically.Harjeet Cruz MD Number of Addenda: 0 Note Initiated On: 08/24/2024 1:59 PM Scope In: Scope Out: Endoscopy Department at [facility] - [address] [place] [address] Procedure Note Harjeet Cruz MD - 08/24/2024 [facility] GI Patient Name: Selvin Luevano Procedure Date: [...] Scope In: Scope Out: Endoscopy Department at [facility] - [address] [place] [phone] IMPRESSION: - One 6 mm polyp at the splenic flexure, removed with a cold snare. Resected and retrieved. - The examination was otherwise normal on directand retroflexion views. Recommendation: - Await pathology results. - Repeat colonoscopy in 5 years for surveillance. us Reagan Cardona MD GI~PROCEDURE ORDERABLES Final Re sult from Last 3 Months or Most Recently Relevant to Health Maintenance Insurance MEDICARE [facility] Advance Directives Documents on File Type Date Recorded Patient Regulatory Attorney Expl anation Health Care Decision (hx) 06/10/2014 AD ARANGO DIRECTIVE Health Care Decision (hx) 06/10/2014 AD ARANGO DIRECTIVE Health Care Decision (hx) 06/10/2014 AD ARANGO DIRECTIVE Health Care Decision (hx) 06/10/2014 AD ARANGO DIRECTIVE Health Care Decision (hx) 06/10/2014 AD ARANGO DIRECTIVE Health Care Decision (hx) 06/10/2014 AD ARANGO DIRECTIVE Care Teams Physician Industrial Relationship Specialty Start Date End Date Sravani Carvalho MD [address] [place] [id number] PCP - General 03/23/24
--- OUTSIDE RECORDS SUMMARY | 2025-04-26 09:37 | XMS_ITS | Patient Health Record ---
Author Organization [facility] [address] Address [address] [place] [address] Care Team Providers Care Invasive Cardiologist Name Role Phone MILIND WHITTEN Unavailable [phone] CARVALHOROCIO BASHIR Unavailable [phone] SHERRY PALMA Unavailable [phone] DOMINIC CAMPOS Unavailable [phone] JEANETTE CALDERA Unavailable [phone] Allergies No Known Allergies Results Component Value Reference Range Notes EKG Reviewed date:02/16/2025 01:46:27 PM Interpretation: Performing Lab: Notes/Report: ECGDiastolicBP 0 ECGHr 50 ECGPRInterval 220 ECGPWaveAxis 33 ECGQRSDuration 88 ECGQrsWaveAxis 22 ECGQTcInterval 435 ECGQTInterval 452 ECGSystolicBP 0 ECGTWaveAxis 52 RR_DiastolicBP 0 RR_MaxRRInterval 0 RR_MeanHR 0 RR_MeanRRInterval 0 RR_MinRRInterval 0 RR_NumBeats 0 RR_NumNormalBeats 0 RR_SystolicBP 0 PSA Total+% Free-[id number] Reviewed date:11/16/2024 08:56:37 AM Interpretation: Performing Lab:Lorrie Olvera, [address] [facility], [place], Phone - [phone], Director - Daniel Notes/Report: Prostate Specific Ag 1.6 0.0-4.0 ng/mL Missy ECLIA methodology. . According to the [employer], Serum PSA should decrease and [...] 4 and 10 ng/mL, by patient age (Kelsey et al, MEHUL 1998, 279:1542). % Free PSA 50-64 yr 65-75 yr 0.00-10.00% 56% 55% 10.01-15.00% 24% 35% 15.01-20.00% 17% 23% 20.01-25.00% 10% 20% >25.00% 5% 9% Please note: Kelsey et al did not make specific recommendations regarding the use of percent free PSA for any other population of men. US DUPLEX ABDOMEN/PELVIS/RET RO LIMITED Reviewed date:11/11/2024 08:05:29 AM Interpretation: Performing Lab: Notes/Report: Note See Note [facility], a member of [employer] Patient Name: LICHA LUEVANO Date of : 1955 Reason for Exam: [id number] Exam Date: 11/01/2024 [id number] EST Report Status: Final Ordering Provider: MILIND [...] Signed Date: 025 16:13 ET Workstation ID: [id number] Transcribed By: Self Edit Transcribed Date: 11/10/2024 16:09 ET Comp. Metabolic Panel (14)-3 Reviewed date:07/01/2024 09:00:02 AM Interpretation: Performing Lab:[facility], [address] [facility], Phone - [phone], Director - Daniel Notes/Report: Glucose 95 70-99 [...] 0-40 IU/L ALT (SGPT) 25 0-44 IU/L CBC With Differential/Platel et-[id number] Reviewed date:07/01/2024 09:00:02 AM Interpretation: Performing Lab:[facility], [address] [facility], [place], Phone - [phone], Director - Daniel Notes/Report: WBC 6.6 3.4-10.8 x10E3/uL Effective July 12, 2024 profile [id number] WBC will be made non-orderable as a [...] Estab. % Basos 1 Not Estab. % Neutrophils (Absolute) 4.6 1.4-7.0 x10E3/uL Lymphs (Absolute) 1.2 0.7-3.1 x10E3/uL Monocytes(Absolute) 0.5 0.1-0.9 x10E3/uL Eos (Absolute) 0.3 0.0-0.4 x10E3/uL Baso (Absolute) 0.1 0.0-0.2 x10E3/uL Immature Granulocytes 0 Not Estab. % Immature Grans (Abs) 0.0 0.0-0.1 x10E3/uL Folate (Folic Acid), Serum-0 [id number] Reviewed date:07/01/2024 09:00:02 AM Interpretation: Performing Lab:Lorrie Olvera[address], Phone - [phone], Director - Mikedry Notes/Report: Folate (Folic Acid), Serum 8.0 >3.0 ng/mL A serum folate concentration of less than 3.1 ng/mL is considered to represent clinical deficiency. Vitamin [id number] Reviewed date:07/01/2024 09:00:02 AM Interpretation: Performing Lab:Lorrie Olvera[address], Phone - [phone], Director - Mikedry Notes/Report: Vitamin B12 003 530-6812 pg/mL Hemoglobin [id number] Reviewed date:07/01/2024 09:00:02 AM Interpretation: Performing Lab:[facility] [address] [place] [address], Phone - [phone], Director - MDArmindadry Notes/Report: Hemoglobin A1c 5.7 4.8-5.6 % . Prediabetes: 5.7 - 6.4 Diabetes: >6.4 Glycemic control for adults with diabetes: <7.0 Uric Acid-[id number] Reviewed date:07/01/2024 09:00:02 AM Interpretation: Performing Lab:[facility], [address], [place], Phone - [phone], Director - Daniel Notes/Report: Uric Acid 4.4 3.8-8.4 mg/dL Therapeutic ta rget for gout patients: <6.0 EKG (Not yet reviewed by pro vider) Interpretation: Performing Lab: Notes/Report: ECGDiastolicBP 82 ECGHr 53 ECGPRInterval 254 ECGPWaveAxis 39 ECGQRSDuration 88 ECGQrsWaveAxis 5 ECGQTcInterval 420 ECGQTInterval 432 ECGSystolicBP 134 ECGTWaveAxis 35 RR_DiastolicBP 0 RR_MaxRRInterval 0 RR_MeanHR 0 RR_MeanRRInterval 0 RR_MinRRInterval 0 RR_NumBeats 0 RR_NumNormalBeats 0 RR_SystolicBP 0 TISSUE EXAM Reviewed date:2024 08:24:02 AM Interpretation: [...] and their performance characteristics were determined by [facility]. They have not been cleared [...] 10% NB formalin fixed and paraffin embedded. Comment Biopsy shows eroded inflammatory polyp with mixed acute and chronic inflammation including eosinophils in the lamina propria. GMS stain is performed to evaluate for infectious organisms and is interpreted as negative, supporting the above diagnosis. Control stains appropriately. Comp. Metabolic Panel (14)-3 [id number] Reviewed date:10/15/2024 10:55:41 AM Interpretation: Performing Lab:Lorrie Olvera, [facility], Phone - [phone], Director - MDTonyay Notes/Report: Glucose 96 70-99 mg/dL BUN 18 [...] 0-40 IU/L ALT (SGPT) 23 0-44 IU/L Lipid Panel-[id number] Reviewed date:10/01/2024 08:56:09 AM Interpretation: Performing Lab:Lorrie Olvera, [facility], Phone - [phone], Director - MDArmindadry Notes/Report: Cholesterol, Total 102 100-199 mg/dL Triglycerides 89 0-149 mg/dL HDL Cholesterol 43 >39 mg/dL VLDL Cholesterol Fish 17 5-40 mg/dL LDL Chol Calc (NIH) 42 0-99 mg/dL CBC With Differential/Platel et-[id number] Reviewed date:10/01/2024 08:56:19 AM Interpretation: Performing Lab:Lorrie Olvera, [facility], Phone - [phone], Director - Mikedry Notes/Report: WBC 7.3 3.4-10.8 x10E3/uL RBC 5.08 4.14-5.80 x10E6/uL Hemoglobin 15.1 13.0-17.7 g/dL Hematocrit 44.8 37.5-51.0 % MCV 88 79-97 fL MCH 29.7 26.6-33.0 pg MCHC 33.7 31.5-35.7 g/dL RDW 12.2 11.6-15.4 % Platelets 179 150-450 x10E3/uL Neutrophils 69 Not Estab. % Lymphs 19 Not Estab. % Monocytes 8 Not Estab. % Eos 3 Not Estab. % Basos 1 Not Estab. % Neutrophils (Absolute) 5.1 1.4-7.0 x10E3/uL Lymphs (Absolute) 1.4 0.7-3.1 x10E3/uL Monocytes(Absolute) 0.6 0.1-0.9 x10E3/uL Eos (Absolute) 0.2 0.0-0.4 x10E3/uL Baso (Absolute) 0.1 0.0-0.2 x10E3/uL Immature Granulocytes 0 Not Estab. % Immature Grans (Abs) 0.0 0.0-0.1 x10E3/uL Urinalysis, Routine-[id number] Reviewed date:10/01/2024 08:56:09 AM Interpretation: Performing Lab:[facility] Olvera, [address] [place] [address], [place], Phone - [phone], Director - Daniel Notes/Report: Specific [place] 1.015 1.005-1.030 pH 6.5 5.0-7.5 Urine-Color Yellow Yellow Appearance Clear Clear WBC Esterase Negative Negative Protein Negative Negative/Trace Glucose Negative Negative Ketones Negative Negative Occult Blood Negative Negative Bilirubin Negative Negative Urobilinogen,Semi-Qn 0.2 0.2-1.0 mg/dL Nitrite, Urine Negative Negative Microscopic Examination Microscopic not indicated and not performed. Reason For Referral Diagnosis 1 Low back pain, unspe cified back pain laterality, unspecified chronicity, unspecified whether sciatica present (M54.50) [facility] Referring Provider First Name ROCIO Referring Provider Last Name JOSE ALBERTO Referring Provider Speciality Internal edicine Referred Provider Specialty Physical The rapist General Notes Heike Linares 2023 01:14:48 PM > filled out form and faxed to [facility] , Clinical Notes pt can make own appt Referral Priority Routine Reason evaluate & treat Diagnosis 1 1st degree AV block (I44.0) [facility] Referring Provider First Name ROCIO Referring Provider Last Name JOSE ALBERTO Referring Provider Speciality Internal edicine Referred Provider Specialty Cardiology General Notes BaileyValeria greenna 10/05 11:54:50 AM > faxed over to Dr. Jorge Gabriel , p.4 , Fax. [phone] Clinical Notes Heike Linares 2024 04:27:22 PM > refaxed Caterina Bean 03/23/2025 02:00:04 PM > The patient was seen on 01/27/25 Referral Priority Routine Reason evaluate Diagnosis 1 Urine troubles (R39. 89) Referral Organization [facility] JOE OJEDA Referring Provider First Name MILIND Referring Provider Last Name MARIA DOLORES Referring Provider [facility] edicine Referred Provider Specialty Urology General Notes Heike Linares 2024 09:41:17 AM > referral sent to [facility] urology, [phone] , [phone] Clinical Notes Caterina Bean 03:08:04 PM > Scheduled for 01/06 at 9 am. Pt aware Referral Priority Routine Reason [facility] [address] Diagnosis 1 Muscle spasm of back (M62.830) Diagnosis 2 Back pain, unspecifi ed back location, unspecified back pain laterality, unspecified chronicity (M54.9) Referral Organization [facility] JOE OJEDA Referring Provider First Name MILIND Referring Provider Last Name MARIA DOLORES Referring Provider [facility] edicine Referred Provider Specialty Physical The rapist General Notes PATRICIA BECERRA 0 12/21/2024 09:30:19 AM >p- Clinical Notes PATRICIA BECERRA 0 12/21/2024 09:32:32 AM >pt can make own appt Referral Priority Routine Medications Medication SIG (Take, Route, Frequency, Duration) Notes Start Date End Date Status Atorvastatin Calcium 40 MG TAKE 1 TABLET BY MOUTH EVERY DAY FOR 90 DAYS; Duration: 90 Active amLODIPine Besylate 5 MG 1 tablet Orally Once a day; Duration: 90 days Active Clopidogrel Bisulfate 75 MG 1 tablet Ora lly Once a day; Duration: 90 days Active Combigan 0.2-0.5 % 1 drop into affected eye Ophthalmic Twice a day Active Cyclobenzaprine HCl 10 MG 1 tablet at be dtime as needed Orally 3 times a day; Duration: 10 days 03/18/2025 Active Lumigan 0.01 % 1 drop into affected eye in the evening Ophthalmic Once a day Active Flonase Allergy Relief 50 MCG/ACT 1 spray in each nostril Nasally Once a day as needed Active Loratadine 10 MG 1 tablet Orally Once a day as needed Active Vitamin B12 100 MCG as directed Orally Active Tamsulosin HCl 0.4 MG 1 capsule Orally O nce a day Active Immunizations Vaccine Route Administration Date Status Comme nts influenza IM Intramuscular 05/26/2019 Administered influenza IM Intramuscular 05/22/2021 Administered influenza IM Intramuscular 05/27/2022 Administered Influenza, high dose seasonal IM Intramuscular 05/29/2023 Administered Social History Tobacco Use: Social History Observation Description Date Details (start date - stop date) Former Smoker NA - NA Tobacco Use/Smoking Question Answer Notes Are you a former smoker Problems Problem Type SNOMED Code ICD Code Onset Dates Problem Status W/U Status Risk Notes Problem Information temporarily unavailable Lactose intolerance, unspecified (E73.9) Active confirmed Problem Information temporarily unavailable Hyperlipidemia, unspecified (E78.5) Active confirmed Problem Information temporarily unavailable Essential (primary) hypertension (I10) Active confirmed Problem Information temporarily unavailable Encounter for screening for malignant neoplasm of prostate (Z12.5) Active confirmed Problem Information temporarily unavailable Essential (primary) hypertension (I10) Active confirmed Problem Information temporarily unavailable Back pain, unspecified back location, unspecified back pain laterality, unspecified chronicity (M54.9) Active confirmed Problem Information temporarily unavailable Hearing loss, unspecified hearing loss type, unspecified laterality (H91.90) Active confirmed Problem Information temporarily unavailable Seasonal allergies (J30.2) Active confirmed Problem Information temporarily unavailable Vitamin D deficiency (E55.9) Active confirmed Problem Information temporarily unavailable Right hip pain (M25.551) Active confirmed Problem Information temporarily unavailable Sciatic nerve pain, unspecified laterality (M54.30) Active confirmed Problem Information temporarily unavailable Uncontrolled hypertension (I10) Active confirmed Problem Information temporarily unavailable Hip pain (M25.559) Active confirmed Problem Information temporarily unavailable Bilateral hearing loss, unspecified hearing loss type (H91.93) Active confirmed Problem Information temporarily unavailable Combined hyperlipidemia (E78.2) Active confirmed Problem Information temporarily unavailable Anemia due to vitamin B12 deficiency, 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) Active confirmed Problem Information temporarily unavailable 1st degree AV block (I44.0) Active confirmed Problem Information temporarily unavailable Cerebrovascular accident (CVA) due to 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) Active confirmed Problem Information temporarily unavailable Low back pain, unspecified back pain laterality, unspecified chronicity, unspecified whether sciatica present (M54.50) Active confirmed Problem Information temporarily unavailable Chronic glaucoma (H40.1190) Active confirmed Problem Information temporarily unavailable Strain of left forearm, initial encounter (S56.597D) Active confirmed Problem Information temporarily unavailable Trapezius strain, right, initial encounter (S46.811A) Active confirmed Vital Signs Heart Rate 69 /min 03/18/2025 Oximetry 96 % 03/18/2025 Blood pressure diastolic 62 mm Hg 03/18/2025 Height 67 in 03/18/2025 Blood pressure systolic 116 mm Hg 03/18/2025 Weight 176 lbs 03/18/2025 BMI 27.56 kg/m2 03/18/2025 Encounters Encounter Location Date Provider Diagnosis [address] 10/08/2024 TALJAZ CARVALHO [address] 02/16/2025 ROCIO CARVALHO Palpitations R00.2 a nd Screening for cardiovascular condition Z13.[address] 05/31/2024 ROCIO CARVALHO Annual physical exam Z00.00 ; Hyperlipidemia, unspecified hyperlipidemia type E78.5 and Essential (primary) hypertension I10 [address] 06/28/2024 DOMINIC BETH Toe pain, right M79. 674 [facility] [address] [place], [place] 07/29/2024 DOMINIC BETH Hyperlipidemia, unspecified E78.5 ; Toe pain, right M79.674 and Essential (primary) hypertension I10 [facility] [address] [place] [address] 08/13/2024 JEANETTENOVA CALDERA Screening for cardiovascular condition Z13.6 ; Colon cancer screening Z12.11 ; Essential (primary) hypertension I10 ; Cerebrovascular accident (CVA) due to embolism of other cerebral artery I63.49 ; Hyperlipidemia, unspecified E78.5 ; Chronic glaucoma H40.1190 ; Seasonal allergies J30.2 and First degree AV block I44.[address] 10/05/2024 MILIND MARIA DOLORES Uncontrolled hyperte nsion I10 ; Hyperlipidemia, unspecified E78.5 ; Cerebrovascular accident (CVA) due to embolism of other cerebral artery I63.49 ; First degree AV block I44.0 and Seasonal allergies J30.[address] 10/26/2024 MILIND MARIA DOLORES Uncontrolled hyperte nsion I10 ; Hyperlipidemia, unspecified E78.5 ; Cerebrovascular accident (CVA) due to embolism of other cerebral artery I63.49 ; First degree AV block I44.0 and Seasonal allergies J30.[address] 11/15/2024 MILIND MARIA DOLORES Uncontrolled hyperte nsion I10 ; Hyperlipidemia, unspecified E78.5 ; Cerebrovascular accident (CVA) due to embolism of other cerebral artery I63.49 ; First degree AV block I44.0 ; Seasonal allergies J30.2 and Encounter for screening for malignant neoplasm of prostate Z12.[address] [address] 01/17/2025 MILIND MARIA DOLORES Uncontrolled hyperte nsion I10 ; Hyperlipidemia, unspecified E78.5 ; Cerebrovascular accident (CVA) due to embolism of other cerebral artery I63.49 ; First degree AV block I44.0 ; Seasonal allergies J30.2 and Encounter for screening for malignant neoplasm of prostate Z12.[address] [address] 03/18/2025 SHERRY PALMA Acute left-sided low back pain without sciatica M54.50 ; Muscle strain T14.8XXA and Encounter for examination of blood pressure without abnormal findings Z01.[address] [address] 05/31/2024 TALAL CARVALHO Muscle spasm of back M62.830 [facility] [address] [place] [phone] 06/28/2024 TALAL CARVALHO [facility] [address] [place] [address] 06/28/[address]ALAL [address]VALHO [facility] [address] [place] [address] 07/12/2024 TALAL CARVALHO [facility] [address] [place] [address] 07/22/2024 JEANETTE CALDERA [facility] [address] [place] [address] 07/26/2024 DOMINIC CAMPOS [facility] [address] [place] [address] 08/02/2024 TALAL CARVALHO [facility] [address] [place] [address] 10/07/2024 MILIND MARIA DOLORES [facility] [address] [place] [address] 10/07/2024 MILIND MARIA DOLORES [facility] [address] [place] [address] 10/08/2024 MILIND MARIA DOLORES [facility] [address] [place] [address] 10/08/2024 MILIND MARIA DOLORES [facility] [address] [address] 10/11/2024 MILIND MARIA DOLORES [facility] [address] [place] [address] 11/05/2024 MILIND MARIA DOLORES [facility] [address] [place] [address] 12/07/2024 MILIND MARIA DOLORES [facility] [address] [place] [address] 12/14/2024 MILIND MARIA DOLORES [facility] [address] [place] [address] 12/29/2024 MILIND MARIA DOLORES [facility] [address] [place] [address] 12/31/2024 TALAL CARVALHO [facility] [address] [place] [address] 01/07/2025 MILIND MARIA DOLORES [facility] [address] [place] [address] 02/14/2025 MILIND MARIA DOLORES [facility] [address] [place] [address] 02/16/2025 MILIND MARIA DOLORES [facility] [address] [place] [address] 03/07/2025 MILIND MARIA DOLORES [facility] [address] [place] [address] 03/18/2025 MILIND MARIA DOLORES [facility] [address] [place] [address] 04/04/2025 MILIND MARIA DOLORES [facility] [address] [place] [address] 07/01/2024 DOMINIC CAMPOS Assessments Encounter Date Diagnosis (ICD Code) Assessment Notes Treatment Notes Treatment Clinical Notes Section Notes 05/31/2024 Annual physical exam (ICD-10 - Z00.00) [...] log exercise and discussed fitness Apps like [employer] which can help keep log off calories [...] 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 Reports symptoms go away [...] of gabapentin if labs are unremarkable. Recommended pwka-snp-fqrzshk anti-inflammatories to be used as needed if [...] Dictation was accomplished with the use of [employer] voice recognition software, prone to medical misidentifications [...] No need to continue the use of flhd-cry-vpvujwa anti-inflammatory such as ibuprofen. No need for [...] Dictation was accomplished with the use of [employer] voice recognition software, prone to medical misidentifications [...] No need to continue the use of fucw-qms-ajqwxcb anti-inflammatory such as ibuprofen. No need for [...] Dictation was accomplished with the use of [employer] voice recognition software, prone to medical misidentifications [...] risk index risk/Yuen MARTHA *0.1% risk of GA, cardiac arrest or other cardiac events intraoperatively or up to 30 days postop Cardona RCI *1% 30 day risk of GA or cardiac arrest EKG performed in office today demonstrating sinus bradycardia with first-degree AV block. MI interval of 254 ms. No evidence of [...] Dictation was accomplished with the use of [employer] voice recognition software, which is prone to [...] risk index risk/Yuen MARTHA *0.1% risk of GA, cardiac arrest or other cardiac events intraoperatively or up to 30 days postop Cardona RCI *1% 30 day risk of GA or cardiac arrest EKG performed in office today demonstrating sinus bradycardia with first-degree AV block. MI interval of 254 ms. No evidence of [...] Dictation was accomplished with the use of [employer] voice recognition software, which is prone to [...] patient declines any assistance or references for [facility], patient reassured to call [...] Dictation was accomplished with the use of [employer] voice recognition software, which is prone to [...] patient declines any assistance or references for [facility], patient reassured to call [...] Dictation was accomplished with the use of [employer] voice recognition software, which is prone to [...] patient declines any assistance or references for [facility], patient reassured to call [...] Dictation was accomplished with the use of [employer] voice recognition software, which is prone to [...] patient declines any assistance or references for [facility], patient reassured to call [...] Dictation was accomplished with the use of [employer] voice recognition software, which is prone to medical misidentifications and grammatical errors. This are unintentional and the practitioner does try to identify and correct these, but some could still be present. Please do not hesitate to contact practitioner for clarification. 01/17/2025 Uncontrolled hypertension (ICD-10 - I10) Licha is a pleasant 69-year-old male with a complex medical history of CVA x 2, essential hypertension, glaucoma, seasonal allergies who presents to the office today for a follow-up. #Urinary retention: Recent PSA obtained on 11/15/2024 was within normal limits. Patient is following with [facility] urology, is placed on tamsulosin at this time. States that he does have a follow-up scheduled soon. #Neck pain: Continue utilizing muscle relaxers as needed, Continue following with [facility] therapy. #Blood pressure concerns: Renal artery ultrasound negative. Continue taking amlodipine besilate 5 mg tablets consider switching patient from amlodipine to losartan...Blood pressure within normal limits today, patient states he did see cardiology..Will obtain notes as this was through [facility] #Hyperlipidemia: Continue atorvastatin calcium 40 mg tablets, previous cardiology note recommended an LDL level of under 70. At this time patient's recent LDL is 42 from lab values conducted on 09/29/2024. This is reassuring for cholesterol goal. #Personal concerns: At this time patient declines any assistance or references for [facility] services, patient reassured to call the office if he does change his mind.States that his recently fell and this has been slightly stressful for him. States that she is undergoing a kyphoplasty soon. #Glaucoma: Continue Lumigan, Combigan eyedrops. #Seasonal allergies: [...] Dictation was accomplished with the use of [employer] voice recognition software, which is prone to medical misidentifications and grammatical errors. This are unintentional and the practitioner does try to identify and correct these, but some could still be present. Please do not hesitate to contact practitioner for clarification. 02/16/2025 Palpitations (ICD-10 - R00.2) 03/18/2025 Muscle strain (ICD-10 - T14.8XXA) Licha is a pleasant 69-year-old male who presents the office for a urgent care visit. Patient has had back spasms in his left lower back since Friday after playing golf. Has been using Motrin with minimal relief. Physical exam overall benign. Most likely muscle strain. No red flag symptoms at this time but did discuss emergency department criteria/criteria to call the office. In the meantime we will treat with conservative treatments, Tylenol, ibuprofen, heat, stretching, lidocaine patches. Will prescribe cyclobenzaprine up to 3 times daily. Discussed do not drink any alcohol in the medication, or drive. He verbalizes understanding. Follow-up as needed, but otherwise will follow-up with Milind Whitten PA-C for Medicare wellness visit in May, sooner as needed All quetsions answered to patients satisfaction. Patient verbalized understanding of diagnosis and treatments explained. To call sooner prior to next visit it any questions/concerns arise. Case discussed with collaborating physician Caren Carvalho who reviewed the assessment and plan. Chart, medications, labs, vital signs reviewed. Dictation was accomplished with the use of [employer] voice recognition software, prone to medical misidentifications and grammatical errors. This is unintentional and the practitioner does try to identify and correct these, but some could still be present. Please do not hesitate to contact practitioner for clarification. 03/18/2025 Acute left-sided low back pain without sciatica (ICD-10 - M54.50) Licha is a pleasant 69-year-old male who presents the office for a urgent care visit. Patient has had back spasms in his left lower back since Friday after playing golf. Has been using Motrin with minimal relief. Physical exam overall benign. Most likely muscle strain. No red flag symptoms at this time but did discuss emergency department criteria/criteria to call the office. In the meantime we will treat with conservative treatments, Tylenol, ibuprofen, heat, stretching, lidocaine patches. Will prescribe cyclobenzaprine up to 3 times daily. Discussed do not drink any alcohol in the medication, or drive. He verbalizes understanding. Follow-up as needed, but otherwise will follow-up with Milind Whitten PA-C for Medicare wellness visit in May, sooner as needed All quetsions answered to patients satisfaction. Patient verbalized understanding of diagnosis and treatments explained. To call sooner prior to next visit it any questions/concerns arise. Case discussed with collaborating physician Caren Carvalho who reviewed the assessment and plan. Chart, medications, labs, vital signs reviewed. Dictation was accomplished with the use of [employer] voice recognition software, prone to medical misidentifications and grammatical errors. This is unintentional and the practitioner does try to identify and correct these, but some could still be present. Please do not hesitate to contact practitioner for clarification. 03/18/2025 Encounter for examination of blood pressure without abnormal findings (ICD-10 - Z01.30) Licha is a pleasant 69-year-old male who presents the office for a urgent care visit. Patient has had back spasms in his left lower back since Friday after playing golf. Has been using Motrin with minimal relief. Physical exam overall benign. Most likely muscle strain. No red flag symptoms at this time but did discuss emergency department criteria/criteria to call the office. In the meantime we will treat with conservative treatments, Tylenol, ibuprofen, heat, stretching, lidocaine patches. Will prescribe cyclobenzaprine up to 3 times daily. Discussed do not drink any alcohol in the medication, or drive. He verbalizes understanding. Follow-up as needed, but otherwise will follow-up with Milind Whitten PA-C for Medicare wellness visit in May, sooner as needed All quetsions answered to patients satisfaction. Patient verbalized understanding of diagnosis and treatments explained. To call sooner prior to next visit it any questions/concerns arise. Case discussed with collaborating physician Caren Carvalho who reviewed the assessment and plan. Chart, medications, labs, vital signs reviewed. Dictation was accomplished with the use of [employer] voice recognition software, prone to medical misidentifications and grammatical errors. This is unintentional and the practitioner does try to identify and correct these, but some could still be present. Please do not hesitate to contact practitioner for clarification. 02/16/2025 Screening for cardiovascular condition (ICD-10 - Z13.6) 01/17/2025 Hyperlipidemia, unspecified (ICD-10 - E78.5) Licha is a pleasant 69-year-old male with a complex medical history of CVA x 2, essential hypertension, glaucoma, seasonal allergies who presents to the office today for a follow-up. #Urinary retention: Recent PSA obtained on 11/15/2024 was within normal limits. Patient is following with [facility] urology, is placed on tamsulosin at this time. States that he does have a follow-up scheduled soon. #Neck pain: Continue utilizing muscle relaxers as needed, Continue following with [facility] therapy. #Blood pressure concerns: Renal artery ultrasound negative. Continue taking amlodipine besilate 5 mg tablets consider switching patient from amlodipine to losartan...Blood pressure within normal limits today, patient states he did see cardiology..Will obtain notes as this was through [facility] #Hyperlipidemia: Continue atorvastatin calcium 40 mg tablets, previous cardiology note recommended an LDL level of under 70. At this time patient's recent LDL is 42 from lab values conducted on 09/29/2024. This is reassuring for cholesterol goal. #Personal concerns: At this time patient declines any assistance or references for [facility], patient reassured to call the office if he does change his mind.States that his recently fell and this has been slightly stressful for him. States that she is undergoing a kyphoplasty soon. #Glaucoma: Continue Lumigan, Combigan eyedrops. #Seasonal allergies: [...] Dictation was accomplished with the use of [employer] voice recognition software, which is prone to [...] patient declines any assistance or references for [facility], patient reassured to call [...] Dictation was accomplished with the use of [employer] voice recognition software, which is prone to [...] patient declines any assistance or references for [facility], patient reassured to call [...] Dictation was accomplished with the use of [employer] voice recognition software, which is prone to [...] patient declines any assistance or references for [facility], patient reassured to call [...] Dictation was accomplished with the use of [employer] voice recognition software, which is prone to [...] log exercise and discussed fitness Apps like [employer] which can help keep log off calories [...] and follow-up in a few months 08/13/2024 Essential (primary) hypertension (ICD-10 - I10) [...] risk index risk/Yuen MARTHA *0.1% risk of GA, cardiac arrest or other cardiac events intraoperatively or up to 30 days postop Cardona RCI *1% 30 day risk of GA or cardiac arrest EKG performed in office today demonstrating sinus bradycardia with first-degree AV block. MI interval of 254 ms. No evidence of [...] Dictation was accomplished with the use of [employer] voice recognition software, which is prone to [...] No need to continue the use of [id number] anti-inflammatory such as ibuprofen. No need for [...] Dictation was accomplished with the use of [employer] voice recognition software, prone to medical misidentifications and grammatical errors. This is unintentional and the practitioner does try to identify and correct these, but some could still be present. Please do not hesitate to contact practitioner for clarification. 05/31/2024 Essential (primary) hypertension (ICD-10 - I10) [...] log exercise and discussed fitness Apps like [employer] which can help keep log off calories [...] proxy and follow-up in a few months 10/05/2024 First degree AV block (ICD-10 - [...] patient declines any assistance or references for [facility], patient reassured to call [...] Dictation was accomplished with the use of [employer] voice recognition software, which is prone to [...] patient declines any assistance or references for [facility] services, patient reassured to call the [...] Dictation was accomplished with the use of [employer] voice recognition software, which is prone to medical misidentifications and grammatical errors. This are unintentional and the practitioner does try to identify and correct these, but some could still be present. Please do not hesitate to contact practitioner for clarification. 08/13/2024 Cerebrovascular accident (CVA) due to embolism [...] risk index risk/Yuen MARTHA *0.1% risk of GA, cardiac arrest or other cardiac events intraoperatively or up to 30 days postop Cardona RCI *1% 30 day risk of GA or cardiac arrest EKG performed in office today demonstrating sinus bradycardia with first-degree AV block. MI interval of 254 ms. No evidence of [...] Dictation was accomplished with the use of [employer] voice recognition software, which is prone to [...] patient declines any assistance or references for [facility], patient reassured to call [...] Dictation was accomplished with the use of [employer] voice recognition software, which is prone to medical misidentifications and grammatical errors. This are unintentional and the practitioner does try to identify and correct these, but some could still be present. Please do not hesitate to contact practitioner for clarification. 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 #Urinary retention: Recent PSA obtained on 11/15/2024 was within normal limits. Patient is following with [facility] urology, is placed on tamsulosin at this time. States that he does have a follow-up scheduled soon. #Neck pain: Continue utilizing muscle relaxers as needed, Continue following with [facility]. #Blood pressure concerns: Renal artery ultrasound negative. Continue taking amlodipine besilate 5 mg tablets consider switching patient from amlodipine to losartan...Blood pressure within normal limits today, patient states he did see cardiology..Will obtain notes as this was through [facility] #Hyperlipidemia: Continue atorvastatin calcium 40 mg tablets, previous cardiology note recommended an LDL level of under 70. At this time patient's recent LDL is 42 from lab values conducted on 09/29/2024. This is reassuring for cholesterol goal. #Personal concerns: At this time patient declines any assistance or references for [facility], patient reassured to call the office if he does change his mind.States that his recently fell and this has been slightly stressful for him. States that she is undergoing a kyphoplasty soon. #Glaucoma: Continue Lumigan, Combigan eyedrops. #Seasonal allergies: [...] Dictation was accomplished with the use of [employer] voice recognition software, which is prone to medical misidentifications and grammatical errors. This are unintentional and the practitioner does try to identify and correct these, but some could still be present. Please do not hesitate to contact practitioner for clarification. 01/17/2025 First degree AV block (ICD-10 - I44.0) Licha is a pleasant 69-year-old male with a complex medical history of CVA x 2, essential hypertension, glaucoma, seasonal allergies who presents to the office today for a follow-up. #Urinary retention: Recent PSA obtained on 11/15/2024 was within normal limits. Patient is following with [facility] urology, is placed on tamsulosin at this time. States that he does have a follow-up scheduled soon. #Neck pain: Continue utilizing muscle relaxers as needed, Continue following with [facility]. #Blood pressure concerns: Renal artery ultrasound negative. Continue taking amlodipine besilate 5 mg tablets consider switching patient from amlodipine to losartan...Blood pressure within normal limits today, patient states he did see cardiology..Will obtain notes as this was through [facility] #Hyperlipidemia: Continue atorvastatin calcium 40 mg tablets, previous cardiology note recommended an LDL level of under 70. At this time patient's recent LDL is 42 from lab values conducted on 09/29/2024. This is reassuring for cholesterol goal. #Personal concerns: At this time patient declines any assistance or references for [facility], patient reassured to call the office if he does change his mind.States that his recently fell and this has been slightly stressful for him. States that she is undergoing a kyphoplasty soon. #Glaucoma: Continue Lumigan, Combigan eyedrops. #Seasonal allergies: [...] Dictation was accomplished with the use of [employer] voice recognition software, which is prone to [...] patient declines any assistance or references for [facility], patient reassured to call [...] Dictation was accomplished with the use of [employer] voice recognition software, which is prone to [...] patient declines any assistance or references for [facility], patient reassured to call [...] Dictation was accomplished with the use of [employer] voice recognition software, which is prone to [...] patient declines any assistance or references for [facility], patient reassured to call [...] Dictation was accomplished with the use of [employer] voice recognition software, which is prone to [...] risk index risk/Yuen MARTHA *0.1% risk of GA, cardiac arrest or other cardiac events intraoperatively or up to 30 days postop Cardona RCI *1% 30 day risk of GA or cardiac arrest EKG performed in office today demonstrating sinus bradycardia with first-degree AV block. MI interval of 254 ms. No evidence of [...] Dictation was accomplished with the use of [employer] voice recognition software, which is prone to [...] risk index risk/Yuen MARTHA *0.1% risk of GA, cardiac arrest or other cardiac events intraoperatively or up to 30 days postop Cardona RCI *1% 30 day risk of GA or cardiac arrest EKG performed in office today demonstrating sinus bradycardia with first-degree AV block. MI interval of 254 ms. No evidence of [...] Dictation was accomplished with the use of [employer] voice recognition software, which is prone to [...] patient declines any assistance or references for [facility], patient reassured to call [...] Dictation was accomplished with the use of [employer] voice recognition software, which is prone to [...] patient declines any assistance or references for [facility], patient reassured to call [...] Dictation was accomplished with the use of [employer] voice recognition software, which is prone to medical misidentifications and grammatical errors. This are unintentional and the practitioner does try to identify and correct these, but some could still be present. Please do not hesitate to contact practitioner for clarification. 01/17/2025 Seasonal allergies (ICD-10 - J30.2) Licha is a pleasant 69-year-old male with a complex medical history of CVA x 2, essential hypertension, glaucoma, seasonal allergies who presents to the office today for a follow-up. #Urinary retention: Recent PSA obtained on 11/15/2024 was within normal limits. Patient is following with [facility], is placed on tamsulosin at this time. States that he does have a follow-up scheduled soon. #Neck pain: Continue utilizing muscle relaxers as needed, Continue following with [facility] physical therapy. #Blood pressure concerns: Renal artery ultrasound negative. Continue taking amlodipine besilate 5 mg tablets consider switching patient from amlodipine to losartan...Blood pressure within normal limits today, patient states he did see cardiology..Will obtain notes as this was through [facility] #Hyperlipidemia: Continue atorvastatin calcium 40 mg tablets, previous cardiology note recommended an LDL level of under 70. At this time patient's recent LDL is 42 from lab values conducted on 09/29/2024. This is reassuring for cholesterol goal. #Personal concerns: At this time patient declines any assistance or references for [facility], patient reassured to call the office if he does change his mind.States that his recently fell and this has been slightly stressful for him. States that she is undergoing a kyphoplasty soon. #Glaucoma: Continue Lumigan, Combigan eyedrops. #Seasonal allergies: [...] Dictation was accomplished with the use of [employer] voice recognition software, which is prone to [...] patient declines any assistance or references for [facility], patient reassured to call [...] Dictation was accomplished with the use of [employer] voice recognition software, which is prone to medical misidentifications and grammatical errors. This are unintentional and the practitioner does try to identify and correct these, but some could still be present. Please do not hesitate to contact practitioner for clarification. 01/17/2025 Encounter for screening for malignant neoplasm of prostate (ICD-10 - Z12.5) Licha is a pleasant 69-year-old male with a complex medical history of CVA x 2, essential hypertension, glaucoma, seasonal allergies who presents to the office today for a follow-up. #Urinary retention: Recent PSA obtained on 11/15/2024 was within normal limits. Patient is following with [facility] urology, is placed on tamsulosin at this time. States that he does have a follow-up scheduled soon. #Neck pain: Continue utilizing muscle relaxers as needed, Continue following with [facility]. #Blood pressure concerns: Renal artery ultrasound negative. Continue taking amlodipine besilate 5 mg tablets consider switching patient from amlodipine to losartan...Blood pressure within normal limits today, patient states he did see cardiology..Will obtain notes as this was through [facility] #Hyperlipidemia: Continue atorvastatin calcium 40 mg tablets, previous cardiology note recommended an LDL level of under 70. At this time patient's recent LDL is 42 from lab values conducted on 09/29/2024. This is reassuring for cholesterol goal. #Personal concerns: At this time patient declines any assistance or references for [facility], patient reassured to call the office if he does change his mind.States that his recently fell and this has been slightly stressful for him. States that she is undergoing a kyphoplasty soon. #Glaucoma: Continue Lumigan, Combigan eyedrops. #Seasonal allergies: [...] Dictation was accomplished with the use of [employer] voice recognition software, which is prone to [...] risk index risk/Yuen MARTHA *0.1% risk of GA, cardiac arrest or other cardiac events intraoperatively or up to 30 days postop Cardona RCI *1% 30 day risk of GA or cardiac arrest EKG performed in office today demonstrating sinus bradycardia with first-degree AV block. MI interval of 254 ms. No evidence of [...] Dictation was accomplished with the use of [employer] voice recognition software, which is prone to [...] risk index risk/Yuen MARTHA *0.1% risk of GA, cardiac arrest or other cardiac events intraoperatively or up to 30 days postop Cardona RCI *1% 30 day risk of GA or cardiac arrest EKG performed in office today demonstrating sinus bradycardia with first-degree AV block. MI interval of 254 ms. No evidence of [...] Dictation was accomplished with the use of [employer] voice recognition software, which is prone to medical misidentifications and grammatical errors. This are unintentional and the practitioner does try to identify and correct these, but some could still be present. Please do not hesitate to contact practitioner for clarification. Plan Of Treatment Pending Test Test Name Order Date X ray : Hip, right 10/20/2023 X ray : Hip, bilateral 05/16/2022 X ray : LS Spine 05/16/2022 MRA : Head without contrast 02/14/2021 MRI : Brain without Contrast 02/14/2021 EKG 08/13/2024 FOLIC ACID 06/28/2024 LIPID PANEL 02/19/2021 MRI Brain w and w/o Contrast 02/13/2021 LIPID PANEL, STANDARD 05/31/2024 LIPID PANEL, STANDARD 10/27/2023 LIPID PANEL, STANDARD 12/25/2021 COMPREHENSIVE METABOLIC PANEL 12/25/2021 COMPREHENSIVE METABOLIC PANEL 10/27/2023 COMPREHENSIVE METABOLIC PANEL 05/31/2024 COMPREHENSIVE METABOLIC PANEL 06/28/2024 URIC ACID 06/28/2024 CBC (INCLUDES DIFF/PLT) 05/31/2024 CBC (INCLUDES DIFF/PLT) 10/27/2023 CBC (INCLUDES DIFF/PLT) 12/25/2021 CBC (INCLUDES DIFF/PLT) 06/28/2024 URINALYSIS, COMPLETE 12/25/2021 URINALYSIS, COMPLETE 10/27/2023 URINALYSIS, COMPLETE 05/31/2024 HEMOGLOBIN A1c 06/28/2024 VITAMIN B12 06/28/2024 PSA (FREE AND TOTAL) 11/15/2024 US Renal Abd Doppler Study 10/05/2024 Next Appt Details Provider Name:MILIND WHITTEN, 11:00:00 AM, [address], [place], [id number], Insurance Providers Payer Name Payer Address Payer Phone Subscriber Number Group Number Insured Name Patient Relationship to Insured Coverage Start Date Coverage End Date Medicare Part B [id number] [address] [place] [address] [id number] MEKALICHA Self - patient is the insured 9 [employer] [address] [facility] [place] [address] [id number] LICHA LUEVANO Self - patient is the insured 0 Medical (General) History Medical History History ICD Code CVA x2, found incidentally o n imaging,Status post workup by cardiology and neurology 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
== END 2025-04-26 09:03 | disposition home or self-care (01) ==
LOC: HO.HCS 08:17
PROVIDERS: Visit Provider Nurse Practitioner Family
DX: R07.89 Other chest pain (principal); I49.3 Ventricular premature depolarization; I10 Essential (primary) hypertension; I63.40 Cerebral infarction due to embolism of unspecified cerebral artery
CPT/HCPCS: 99214; G2211

== ENCOUNTER → 2025-04-26 08:17 | Outpatient (BNVA) | payer MEDICARE, OTHER, SELFPAY | PROVIDERS: Visit Provider Nurse Practitioner Family | DX: I10 Essential (primary) hypertension (principal); R07.89 Other chest pain; I63.40 Cerebral infarction due to embolism of unspecified cerebral artery; I49.3 Ventricular premature depolarization | CPT/HCPCS: 99212 ==